=== PATIENT | male | born 1930 | race Caucasian/White ===

== ENCOUNTER 2019-01-06 09:49 | Inpatient (IN) | payer OTHER ==
[2019-01-06 10:17] LABS: Absolute Lymphocytes (CBC) 1.6 K/uL (0.7-4.9); Basophils % 0.3 % (0-1.3); Hematocrit 36.5 % (39.6-49.0); Lymphocytes % 28.3 % (15.3-44.8); MPV 8.5 fL (7.6-11.3); RBC Red Blood Cell Count 3.74 M/uL (4.33-5.43)
[2019-01-06 10:18] LABS: Protime INR 1.46
[2019-01-06 10:58] LABS: ALT/SGPT 25 U/L (12-78); AST/SGOT 20 U/L (15-37); Albumin 3.8 g/dL (3.4-5.0); Alkaline Phosphatase 153 U/L (45-117); BUN Blood Urea Nitrogen 31 mg/dL (7-18); Bicarbonate 30 mmol/L (21-32); Bilirubin Direct 0.2 mg/dL (0-0.2); Bilirubin Total 0.8 mg/dL (0.2-1.0); Glucose Level 92 mg/dL (74-106); Lipase 35 U/L (73-393); Magnesium 2.4 mg/dL (1.8-2.4); NT PRO-BNP 2338 pg/mL (<450); Potassium 4.3 mmol/L (3.5-5.1); Protein, Total 7.7 g/dL (6.4-8.2); Sodium Level 140 mmol/L (136-145); Troponin (Emerg Dept Use Only) < 0.02 ng/mL (0.0-0.045)
--- NOTE | 2019-01-06 11:17 | ER ---
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 Transition of care: patient was not received from another setting of care. Onset of symptoms was January 06, 2019. Risk Assessment: Do you want to hurt yourself or someone else? Patient reports no desire to harm self or others. Initial Sepsis Screen: Does the patient meet any 2 criteria? No. Patient's initial sepsis screen is negative. Does the patient have a suspected source of infection? No. Patient's initial sepsis screen is negative. Care prior to arrival:. 09:53 Method Of Arrival: EMS: [facility] ph 09:53 Acuity: LEX 2 ph Historical: - Allergies: 09:56 Sulfa (Sulfonamide Antibiotics); ph 09:58 Sulfa (Sulfonamide Antibiotics); bp - Home Meds: 09:58 atorvastatin 40 mg Oral tab 1 tab once daily [Active]; Cialis 5 mg Oral tab 1 tab once bp daily [Active]; Coreg 3.125 mg Oral tab 1 tab 2 times per day [Active]; furosemide 40 mg Oral tab 1 tab once daily [Active]; gabapentin 400 mg Oral cap 1 cap 3 times per day [Active]; Iron CR Oral 250 mg daily [Active]; losartan 50 mg Oral tab 1 tab once daily [Active]; Nexium 40 mg Oral cpDR 1 cap once daily [Active]; oxybutynin chloride 5 mg Oral tab 1 tab 2 times per day [Active]; Pradaxa 150 mg Oral cap 1 cap 2 times per day [Active]; - PMHx: 09:56 Atrial Fib; Hypertension; ph 09:58 Atrial Fib; bp - PSHx: 09:56 Knee surgery; ph 09:58 CABG; bp - Immunization history:: Adult Immunizations up to date. - Social history:: Smoking status: Patient/guardian denies using tobacco. - Ebola Screening: : No symptoms or risks identified at this time. - Family history:: not pertinent. Screenin:00 Abuse screen: Denies threats or abuse. Denies injuries from another. Nutritional bp screening: No deficits noted. Tuberculosis screening: No symptoms or risk factors identified. Fall Risk None identified. Assessment: 09:59 General: Appears in no apparent distress. comfortable, Behavior is calm, cooperative. bp Pain: Denies pain. Neuro: Level of Consciousness is awake, alert, obeys commands, Oriented to person, place, time, situation. Cardiovascular: Patient's skin is warm and dry. Cardiovascular: Rhythm is atrial fibrillation. Respiratory: Airway is patent. GI: No signs and/or symptoms were reported involving the gastrointestinal system. : No signs and/or symptoms were reported regarding the genitourinary system. EENT: No signs and/or symptoms were reported regarding the EENT system. Derm: Skin is intact. Musculoskeletal: No signs and/or symptoms reported regarding the musculoskeletal system. 10:52 Reassessment: ALL CURRENT ORDERS COMPLETED, RESULTS PENDING. bp 13:00 Reassessment: ADMIT IN PROCESS, BED ASSIGNMENT PENDING. bp 15:32 Reassessment: Patient appears in no apparent distress at this time. Patient and/or rv family updated on plan of care and expected duration. Pain level reassessed. Patient is alert, oriented x 3, equal unlabored respirations, skin warm/dry/pink. Vital Signs: 09:56 BP 143 / 88; Pulse 78; Resp 18; Temp 97.2; Pulse Ox 99% on R/A; Weight 95.25 kg; ph 10:52 BP 144 / 80; Pulse 54; Resp 14; Pulse Ox 94% ; bp 11:27 BP 138 / 75; Pulse 59; Resp 15; Pulse Ox 98% on R/A; bp 13:00 BP 122 / 52; Pulse 60; Resp 15; Pulse Ox 96% ; bp 14:00 BP 149 / 66; Pulse 50; Resp 17; Pulse Ox 95% ; bp 15:31 BP 137 / 70; Pulse 61; Resp 15; Pulse Ox 100% on R/A; rv 16:52 BP 133 / 57; Pulse 59; Resp 17; Pulse Ox 100% ; rv ED Course: 09:52 Patient arrived in ED. ph 09:55 Betzy, James, RN is Primary Nurse. bp 09:55 Quincy Brown MD is Attending Physician. josefa 09:55 Triage completed. ph 09:56 EKG done, by ED staff, reviewed by Quincy Brown MD. em1 09:56 Arm band placed on Patient placed in an exam room, on a stretcher, on security monitor, ph on pulse oximetry. 10:00 Maintain EMS IV. Dressing intact. Good blood return noted. Site clean \T\ dry. Gauge \T\ bp site: 20 G LEFT AC. 10:00 Patient has correct armband on for positive identification. Placed in gown. Bed in low bp position. Call light in reach. Side rails up X 1. Adult w/ patient. hall monitor on. Pulse ox on. NIBP on. 10:38 XRAY Chest (1 view) In Process Unspecified. EDMS 11:13 Tao Johnson MD is Hospitalizing Provider. josefa 12:04 CT In Process Unspecified. EDMS 16:55 No provider procedures requiring assistance completed. Patient admitted, IV remains in rv place. Administered Medications: 10:20 Drug: NS 0.9% 1000 ml Route: IV; Rate: 125 ml/hr; Site: right forearm; bp 16:52 Follow up: IV Status: Completed infusion; IV Intake: 1000ml rv Intake: 16:52 IV: 1000ml; Total: 1000ml. rv Outcome: 11:15 Decision to Hospitalize by Provider. josefa 16:55 Admitted to Med/surg accompanied by tech, via wheelchair, room 220, Report called to rv yani 16:55 Condition: good 16:55 Discharge instructions given to patient, Instructed on the need for admit, Demonstrated understanding of instructions. 16:56 Patient left the ED. rv Signatures: Dispatcher [employer] EDLA Quincy Brown MD MD cha Martinez, Eric em1 Raiza Chowdhury, MICHELLE MARTINEZ ph James Bo, MICHELLE RN bp Hakeem Avalos RN RN rv
--- NOTE | 2019-01-06 11:17 | EDPHYS ---
Physician Documentation [facility] Name: Jayden Lopez Age: 88 yrs Sex: Male : 1930 Arrival Date: 01/06/2019 Time: 09:52 Bed 3 Private MD: ED Physician Quincy Brown HPI: 01/06 11:16 This 88 yrs old Male presents to ER via EMS with complaints of General josefa Weakness. 11:16 The patient presents with a history of irregular heart beat, heart skipping beats. josefa Context: The symptoms occur with light activity. Onset: The symptoms/episode began/occurred just prior to arrival. Modifying factors: The symptoms are aggravated by nothing. The symptoms are alleviated by nothing. weak, near syncope, low hr 30's. The patient presents with dizziness, generalized weakness. Historical: - Allergies: 09:56 Sulfa (Sulfonamide Antibiotics); ph 09:58 Sulfa (Sulfonamide Antibiotics); bp - Home Meds: 09:58 atorvastatin 40 mg Oral tab 1 tab once daily [Active]; Cialis 5 mg Oral tab 1 tab once bp daily [Active]; Coreg 3.125 mg Oral tab 1 tab 2 times per day [Active]; furosemide 40 mg Oral tab 1 tab once daily [Active]; gabapentin 400 mg Oral cap 1 cap 3 times per day [Active]; Iron CR Oral 250 mg daily [Active]; losartan 50 mg Oral tab 1 tab once daily [Active]; Nexium 40 mg Oral cpDR 1 cap once daily [Active]; oxybutynin chloride 5 mg Oral tab 1 tab 2 times per day [Active]; Pradaxa 150 mg Oral cap 1 cap 2 times per day [Active]; - PMHx: 09:56 Atrial Fib; Hypertension; ph 09:58 Atrial Fib; bp - PSHx: 09:56 Knee surgery; ph 09:58 CABG; bp - Immunization history:: Adult Immunizations up to date. - Social history:: Smoking status: Patient/guardian denies using tobacco. - Ebola Screening: : No symptoms or risks identified at this time. - Family history:: not pertinent. ROS: 11:16 Constitutional: Negative for fever, chills, and weight loss, Eyes: Negative for injury, josefa pain, redness, and discharge, ENT: Negative for injury, pain, and discharge, Neck: Negative for injury, pain, and swelling, Respiratory: Negative for shortness of breath, cough, wheezing, and pleuritic chest pain, Abdomen/GI: Negative for abdominal pain, nausea, vomiting, diarrhea, and constipation, Back: Negative for injury and pain, : Negative for injury, bleeding, discharge, and swelling, MS/Extremity: Negative for injury and deformity, Skin: Negative for injury, rash, and discoloration, Psych: Negative for depression, anxiety, suicide ideation, homicidal ideation, and hallucinations, Allergy/Immunology: Negative for hives, rash, and allergies, Endocrine: Negative for neck swelling, polydipsia, polyuria, polyphagia, and marked weight changes, Hematologic/Lymphatic: Negative for swollen nodes, abnormal bleeding, and unusual bruising. 11:16 Cardiovascular: Positive for palpitations. 11:16 Neuro: Positive for near syncope, weakness. Exam: 11:16 Constitutional: This is a well developed, well nourished patient who is awake, alert, josefa and in no acute distress. Head/Face: Normocephalic, atraumatic. Eyes: Pupils equal round and reactive to light, extra-ocular motions intact. Lids and lashes normal. Conjunctiva and sclera are non-icteric and not injected. Cornea within normal limits. Periorbital areas with no swelling, redness, or edema. ENT: Nares patent. No nasal discharge, no septal abnormalities noted. Tympanic membranes are normal and external auditory canals are clear. Oropharynx with no redness, swelling, or masses, exudates, or evidence of obstruction, uvula midline. Mucous membranes moist. Neck: Trachea midline, no thyromegaly or masses palpated, and no cervical lymphadenopathy. Supple, full range of motion without nuchal rigidity, or vertebral point tenderness. No Meningismus. Chest/axilla: Normal chest wall appearance and motion. Nontender with no deformity. No lesions are appreciated. Respiratory: Lungs have equal breath sounds bilaterally, clear to auscultation and percussion. No rales, rhonchi or wheezes noted. No increased work of breathing, no retractions or nasal flaring. Abdomen/GI: Soft, non-tender, with normal bowel sounds. No distension or tympany. No guarding or rebound. No evidence of tenderness throughout. Back: No spinal tenderness. No costovertebral tenderness. Full range of motion. Male : Normal genitalia with no discharge or lesions. Skin: Warm, dry with normal turgor. Normal color with no rashes, no lesions, and no evidence of cellulitis. MS/ Extremity: Pulses equal, no cyanosis. Neurovascular intact. Full, normal range of motion. Neuro: Awake and alert, GCS 15, oriented to person, place, time, and situation. Cranial nerves II-XII grossly intact. Motor strength 5/5 in all extremities. Sensory grossly intact. Cerebellar exam normal. Normal gait. Psych: Awake, alert, with orientation to person, place and time. Behavior, mood, and affect are within normal limits. 11:16 Cardiovascular: Rate: tachycardic, Rhythm: irregularly irregular, Pulses: Pulses are 4+ in bilateral radial, brachial, femoral, popliteal, posterior tibial and and dorsalis pedis arteries.. Heart sounds: normal, Edema: 2+ edema to level of left midcalf and right midcalf, JVD: is not appreciated. Vital Signs: 09:56 BP 143 / 88; Pulse 78; Resp 18; Temp 97.2; Pulse Ox 99% on R/A; Weight 95.25 kg; ph 10:52 BP 144 / 80; Pulse 54; Resp 14; Pulse Ox 94% ; bp 11:27 BP 138 / 75; Pulse 59; Resp 15; Pulse Ox 98% on R/A; bp 13:00 BP 122 / 52; Pulse 60; Resp 15; Pulse Ox 96% ; bp 14:00 BP 149 / 66; Pulse 50; Resp 17; Pulse Ox 95% ; bp 15:31 BP 137 / 70; Pulse 61; Resp 15; Pulse Ox 100% on R/A; rv 16:52 BP 133 / 57; Pulse 59; Resp 17; Pulse Ox 100% ; rv MDM: 09:55 Patient medically screened. [facility] 01/06 09:57 Order name: Basic Metabolic Panel; Complete Time: 11:11 [facility] 01/06 09:57 Order name: CBC with Diff; Complete Time: 10:59 01/06 09:57 Order name: LFT's; Complete Time: 11:11 [facility] 01/06 09:57 Order name: Magnesium; Complete Time: 11:11 [facility] 01/06 09:57 Order name: NT PRO-BNP; Complete Time: 11:11 [facility] 01/06 09:57 Order name: PT-INR; Complete Time: 10:59 [facility] 01/06 09:57 Order name: Troponin (emerg Dept Use Only); Complete Time: 11:11 [facility] 01/06 09:57 Order name: XRAY Chest (1 view); Complete Time: 13:08 [facility] 01/06 09:57 Order name: EKG; Complete Time: 10:00 [facility] 01/06 09:57 Order name: TSH; Complete Time: 11:11 [facility] 01/06 09:57 Order name: Lipase; Complete Time: 11:11 [facility] 01/06 11:29 Order name: CT Head Brain wo Cont [facility] 01/06 12:04 Order name: CT EDMS 01/06 09:57 Order name: Cardiac monitoring; Complete Time: 10:12 [facility] 01/06 09:57 Order name: EKG - Nurse/Tech; Complete Time: 10:12 [facility] 01/06 09:57 Order name: IV Saline Lock; Complete Time: 10:12 [facility] 01/06 09:57 Order name: Labs collected and sent; Complete Time: 10:56 [facility] 01/06 09:57 Order name: O2 Per Protocol; Complete Time: 10:12 [facility] 01/06 09:57 Order name: O2 Sat Monitoring; Complete Time: 10:12 [facility] Administered Medications: 10:20 Drug: NS 0.9% 1000 ml Route: IV; Rate: 125 ml/hr; Site: right forearm; bp 16:52 Follow up: IV Status: Completed infusion; IV Intake: 1000ml rv Disposition: 01/06/19 11:15 Hospitalization ordered by Tao Johnson for Inpatient Admission. Preliminary diagnosis are Bradycardia, unspecified, Atrial fibrillation and flutter, Syncope and collapse - near. - Bed requested for Telemetry/MedSurg (Inpatient). - Status is Inpatient Admission. rv - Condition is Fair. - Problem is new. - Symptoms have improved. UTI on Admission? No Signatures: Dispatcher [employer] EDMS Quincy Brown MD MD cha Martinez, Eric em1 Raiza Chowdhury, James Collins RN, ph, RN RN Hakeem Meyer RN RN rv Corrections: (The following items were deleted from the chart) 14:49 11:15 Hospitalization Ordered by Tao Johnson MD for Inpatient Admission. Preliminary em1 diagnosis is Bradycardia, unspecified; Atrial fibrillation and flutter; Syncope and collapse - near. Bed requested for Telemetry/MedSurg (Inpatient). Status is Inpatient Admission. Condition is Fair. Problem is new. Symptoms have improved. UTI on Admission? No. josefa 16:56 14:49 01/06/2019 11:15 Hospitalization Ordered by Tao Johnson MD for Inpatient rv Admission. Preliminary diagnosis is Bradycardia, unspecified; Atrial fibrillation and flutter; Syncope and collapse - near. Bed requested for Telemetry/MedSurg (Inpatient). Status is Inpatient Admission. Condition is Fair. Problem is new. Symptoms have improved. UTI on Admission? No. em1
--- NOTE | 2019-01-06 11:21 | RAD REPORT ---
EXAM DESCRIPTION: RAD - Chest Single View - 01/06/2019 10:29 am CLINICAL HISTORY: Cough, shortness of breath, hypertension COMPARISON: May 2013 TECHNIQUE: AP portable chest image was obtained 1024 hours . FINDINGS: No peripheral mass or consolidation seen. Interstitial markings are prominent but not subs tantially different over the long interval since prior imaging. Sternotomy wires are in place. Cardia c silhouette is enlarged similar to comparison. No acute vascular engorgement seen. No measurable ple ural effusion and no pneumothorax. No acute bony abnormality seen. No acute aortic findings suspected . IMPRESSION: Cardiomegaly without other findings of acute failure or volume overload. Prominent interstitial lung pattern not substantially different from comparison. Baseline pattern cou ld mask early stages of interstitial edema or infiltrate.
--- NOTE | 2019-01-06 12:03 | RAD REPORT ---
EXAM DESCRIPTION: CT - Head Brain Wo Cont - 01/06/2019 11:52 am CLINICAL HISTORY: Dizziness, fatigue, syncope, bradycardia and hypotension COMPARISON: None. TECHNIQUE: Axial 5 mm thick images of the head were obtained without IV contrast. All CT scans are performed using dose optimization technique as appropriate and may include automated exposure control or mA/KV adjustment according to patient size. FINDINGS: No intracranial hemorrhage, mass, edema or shift of mid-line structures. No acute infarcti on changes seen. No abnormal extra-axial fluid collections. Mild atrophy and chronic ischemic changes are present. 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 Ventricles are in proportion to volume loss. Intracranial findings are similar to comparison. Mastoid air cells and visualized portions of the paranasal sinuses are clear. No acute bony findings. IMPRESSION: Negative non-contrast CT head examination for acute finding. No significant change from 2017.
--- NOTE | 2019-01-06 14:26 | P.HP ---
Patient History Date of Service: 01/06/19 Reason for admission: Dizziness, generalized weakness History of Present Illness: This is an 88-year-old male with past medical history of atrial fibrillation, hypertension, CAD with history of CABG admitted for generalized weakness and some dizziness. Per patient, this morning, he got off his couch to get on some from the cup of coffee and felt very dizzy and disoriented. He sat back down, but he would pass. The feeling of dizziness and disorientation persisted, therefore he called his friend. Friend was going to check on patient, by the time she got there he could not even walk and was complaining of increased dizziness. Therefore EMS was called. When checked by the EMS, patient's heart rate was down in the 40s and he asymptomatic. Therefore he was brought to the emergency room. In the ER, his blood pressure was 143/88, heart rate of 78, respirations of 18. His labs were remarkable for increased alk-phos of 153 and at pro BNP of 2,338. Patient's heart rate from the 70s did go down to the 50s. He was given 0.5 mg atropine, IV fluid bolus in the ER. At the time of my exam, he was alert oriented x3, in no acute distress. He states that he was feeling a little bit better than his dizziness had improved. But he stated that he has not walked yet so he is not sure if this dizziness is completely resolved yet. He will be admitted for symptomatic bradycardia for further evaluation and management. Allergies Sulfa (Sulfonamide Antibiotics) Allergy (Intermediate, Verified 12/04/12 13:11) Shortness of breath Home medications list reviewed: Yes Home Medications: Amiodarone HCl 200 mg PO DAILY 05/29/13 Atorvastatin Calcium [Lipitor] 40 mg PO DAILY 05/29/13 Centrum Silver* 1 tab PO DAILY 05/29/13 Dabigatran Etexilate Mesylate [Pradaxa*] 150 mg PO BID 05/29/13 Esomeprazole Mag Trihydrate [Nexium] 40 mg PO BID 05/29/13 Furosemide [Lasix*] 40 mg PO DAILY 05/29/13 Gabapentin [Neurontin*] 400 mg PO TID 05/29/13 Iron 18 mg PO 05/29/13 Oxybutynin Chloride 5 mg PO DAILY 05/29/13 Ciprofloxacin HCl [Cipro*] 500 mg PO Q12H #10 tab 06/02/13 Hydrocodone/Acetaminophen [Vicodin 5-300 mg Tablet] 1 each PO Q4H PRN #30 tablet 06/02/13 Promethazine Tab [Phenergan -Tab] 25 mg PO Q6HP PRN #10 tab 06/02/13 - Past Medical/Surgical History Diabetic: No -: Atrial fibrillation -: heart surgery 2001 (unspecified by patient) -: right knee replacement 2007, left Knee replacement 10/2012 -: Hypertension -: left knee replacement 10/26 Psychosocial/ Personal History: Patient lives alone. He is currently independent with his iADL, ADLs. Daughter is in [place] - Social History Smoking Status: Never smoker Alcohol use: No Place of Residence: Home Review of Systems 10-point ROS is otherwise unremarkable Physical Examination - Physical Exam General: Alert, In no apparent distress, Oriented x3 HEENT: Atraumatic, PERRLA, Mucous membr. moist/pink, EOMI, Sclerae nonicteric Neck: Supple, 2+ carotid pulse no bruit, No LAD, Without JVD or thyroid abnormality Respiratory: Clear to auscultation bilaterally, Normal air movement Cardiovascular: Normal S1 S2, Irregular heart rate/rhythm (Bradycardic) Gastrointestinal: Normal bowel sounds, No tenderness Musculoskeletal: No tenderness Integumentary: No rashes Neurological: Normal gait, Normal speech, Normal strength at 5/5 x4 extr, Normal tone, Normal affect Lymphatics: No axilla or inguinal lymphadenopathy - Studies Laboratory Data (last 24 hrs) 01/06/19 10:04: PT 17.0 H, INR 1.46 01/06/19 10:04: WBC 5.8, Hgb 12.2 L, Hct 36.5 L, Plt Count 155 01/06/19 10:04: Sodium 140, Potassium 4.3, BUN 31 H, Creatinine 1.28, Glucose 92 , Magnesium 2.4, Total Bilirubin 0.8, AST 20, ALT 25, Alkaline Phosphatase 153 H , Lipase 35 L Assessment and Plan - Problems (Diagnosis) (1) Symptomatic bradycardia Current Visit: Yes Status: Acute Plan: Likely secondary to Coreg use -symptoms include: Dizziness, unable to walk, generalized weakness. Improved -will hold Coreg at this time. -cardiology consults, awaiting recommendations -monitor on tele (2) Atrial fibrillation Current Visit: Yes Status: Acute Plan: Patient does have a history of chronic atrial fibrillation. -It seems to be rate controlled with Coreg at home. Hold Coreg at this time due to symptomatic bradycardia. -He is on Pradaxa 150 mg b.i.d. for blood thinner. Will continue that here. Qualifiers: Atrial fibrillation type: chronic Qualified Code(s): I48.2 - Chronic atrial fibrillation (3) Hypertension Current Visit: No Status: Chronic Plan: We will restart home medications of losartan 50 mg and Lasix 40. Continue to monitor blood pressure and adjust medications as needed. Qualifiers: Hypertension type: essential hypertension Qualified Code(s): I10 - Essential (primary) hypertension (4) Coronary artery disease Current Visit: No Status: Chronic Plan: Stable, restart home medications as tolerated. Qualifiers: Coronary Disease-Associated Artery/Lesion type: bypass graft [place] vs. transplanted heart: [place] heart Associated angina: without angina Qualified Code(s): I25.810 - Atherosclerosis of coronary artery bypass graft(s) without angina pectoris (5) History of coronary artery bypass graft Current Visit: No Status: Chronic - Plan DVT prophylaxis: Pradaxa GI prophylaxis: Protonix Diet: Heart healthy Disposition: Admit to floor, monitor via tele. Awaiting cardiology recommendations. Discharge Plan: Home Plan to discharge in: 48 Hours - Advance Directives Does patient have a Living Will: No Does patient have a Durable POA for Healthcare: Yes Time Spent Managing Pts Care (In Minutes): 65
[2019-01-06] MEDS ORDERED: ONDANSETRON 4 MG/2 ML VIAL IV PRN (17:11)
[2019-01-06] MEDS: NA CHLORIDE 0.9% 1,000 ML IV SCH (17:44)
[2019-01-06 18:35] VITALS: BMI 27.1
[2019-01-06] MEDS: DABIGATRAN 150 MG CAP PO SCH (20:02)
[2019-01-06] MEDS ORDERED: ATORVASTATIN 40 MG TAB PO SCH (21:00)
[2019-01-07 03:21] LABS: Urine Appearance CLEAR; Urine Bilirubin NEGATIVE (NEG); Urine Blood TRACE (NEG); Urine Color YELLOW; Urine Glucose NEGATIVE (NEG); Urine Microscopic Reflex ORDER UMIC; Urine Protein NEGATIVE (NEG); Urine Specific Gravity 1.015 (1.005-1.030)
[2019-01-07 04:04] LABS: Urine Bacteria <20 /HPF (NONE SEEN); Urine Culture Reflex Order NOT NEEDED
[2019-01-07] MEDS: NA CHLORIDE 0.9% 1,000 ML IV SCH (04:10)
[2019-01-07] MEDS ORDERED: PANTOPRAZOLE 40MG TABLET PO SCH (06:30)
[2019-01-07 06:32] LABS: Absolute Lymphocytes (CBC) 1.5 K/uL (0.7-4.9); Basophils % 0.4 % (0-1.3); Hematocrit 35.4 % (39.6-49.0); Lymphocytes % 28.8 % (15.3-44.8); MPV 8.3 fL (7.6-11.3); RBC Red Blood Cell Count 3.66 M/uL (4.33-5.43)
[2019-01-07 06:53] LABS: Albumin 3.3 g/dL (3.4-5.0); Bilirubin Total 0.5 mg/dL (0.2-1.0); Phosphorus 2.5 mg/dL (2.5-4.9); Potassium 4.3 mmol/L (3.5-5.1); Protein, Total 6.6 g/dL (6.4-8.2)
[2019-01-07 08:13] VITALS: BP 168/78; TEMP 98.5
[2019-01-07] MEDS: DABIGATRAN 150 MG CAP PO SCH (08:26)
[2019-01-07] MEDS ORDERED: LOSARTAN POTASSIUM 50 MG TABLET PO SCH (09:00)
[2019-01-07] MEDS ORDERED: FUROSEMIDE 40 MG TABLET PO SCH (09:00)
[2019-01-07 09:16] VITALS: O2SAT 95
--- NOTE | 2019-01-07 10:44 | EKG ---
Test Date: 2019-01-06 Test Time: 09:54:53 Communications Controller: COLEMAN MEASUREMENT RESULTS: Intervals: Rate: 75 DC: QRSD: 84 QT: 410 QTc: 457 Weare: P: DC: QRS: 12 T: 87 INTERPRETIVE STATEMENTS: Atrial fibrillation with controlled ventricular response Septal infarct, age undetermined Abnormal ECG Compared to ECG 12/01/2016 08:16:34 no significant change from previous ECG Electronically Signed On 01-07-19 10:44:08 CDT by Gurmeet Kowalski
--- NOTE | 2019-01-07 11:26 | P.DS ---
Admission Date: 01/06/19 Discharge Date: 01/07/19 Disposition: ROUTINE DISCHARGE Discharge Condition: GOOD Reason for Admission: Dizziness, generalized weakness Consultations: Cardiology - Problems (1) Symptomatic bradycardia Current Visit: Yes Status: Acute (2) Atrial fibrillation Current Visit: Yes Status: Acute Qualifiers: Atrial fibrillation type: chronic Qualified Code(s): I48.2 - Chronic atrial fibrillation (3) Hypertension Current Visit: No Status: Chronic Qualifiers: Hypertension type: essential hypertension Qualified Code(s): I10 - Essential (primary) hypertension (4) Coronary artery disease Current Visit: No Status: Chronic Qualifiers: Coronary Disease-Associated Artery/Lesion type: bypass graft [place] vs. transplanted heart: [place] heart Associated angina: without angina Qualified Code(s): I25.810 - Atherosclerosis of coronary artery bypass graft(s) without angina pectoris (5) History of coronary artery bypass graft Current Visit: No Status: Chronic Brief History of Present Illness: This is an 88-year-old male with past medical history of atrial fibrillation, hypertension, CAD with history of CABG admitted for generalized weakness and some dizziness. Per patient, this morning, he got off his couch to get on some from the cup of coffee and felt very dizzy and disoriented. He sat back down, but he would pass. The feeling of dizziness and disorientation persisted, therefore he called his friend. Friend was going to check on patient, by the time she got there he could not even walk and was complaining of increased dizziness. Therefore EMS was called. When checked by the EMS, patient's heart rate was down in the 40s and he asymptomatic. Therefore he was brought to the emergency room. In the ER, his blood pressure was 143/88, heart rate of 78, respirations of 18. His labs were remarkable for increased alk-phos of 153 and at pro BNP of 2,338. Patient's heart rate from the 70s did go down to the 50s. He was given 0.5 mg atropine, IV fluid bolus in the ER. At the time of my exam, he was alert oriented x3, in no acute distress. He states that he was feeling a little bit better than his dizziness had improved. But he stated that he has not walked yet so he is not sure if this dizziness is completely resolved yet. He will be admitted for symptomatic bradycardia for further evaluation and management. Hospital Course: Patient was admitted. His coreg was held. His heart rate did improve. He was then cleared for discharge by cardiology. His coreg was held on discharge. He also worked with physical therapy prior to discharge and he did well. Prior to discharge, he was AAOx3, in no acute distress and symptom free. He was ambulating and tolerating a PO diet. His labs were stable and he was hemodynamically stable. He otherwise remained stable throughout the stay. His diagnosis and treatment plan was explained to him and he verbalized understanding. All questions were answered. He was then discharged home in a safe and stable manner. Vital Signs/Physical Exam: Temp Pulse Resp BP Pulse Ox 98.5 F 53 14 168/78 H 96 01/07/19 08:00 01/07/19 08:27 01/07/19 08:00 01/07/19 08:01/07/19 08:00 General: Alert, In no apparent distress, Oriented x3 HEENT: Atraumatic, PERRLA, EOMI Neck: Supple, JVD not distended Respiratory: Clear to auscultation bilaterally, Normal air movement Cardiovascular: Regular rate/rhythm, Normal S1 S2 Gastrointestinal: Normal bowel sounds, No tenderness Musculoskeletal: No tenderness Integumentary: No rashes Neurological: Normal speech, Normal tone, Normal affect Lymphatics: No axilla or inguinal lymphadenopathy Laboratory Data at Discharge: WBC 5.2 K/uL (4.3-10.9) 01/07/19 06:10 Hgb 11.9 g/dL (13.6-17.9) L 01/07/19 06:10 Hct 35.4 % (39.6-49.0) L 01/07/19 06:10 Plt Count 157 K/uL (152-406) 01/07/19 06:10 PT 17.0 SECONDS (9.5-12.5) H 01/06/19 10:04 INR 1.46 01/06/19 10:04 Sodium 145 mmol/L (136-145) 01/07/19 06:10 Potassium 4.3 mmol/L (3.5-5.1) 01/07/19 06:10 BUN 23 mg/dL (7-18) H 01/07/19 06:10 Creatinine 1.00 mg/dL (0.55-1.3) 01/07/19 06:10 Glucose 96 mg/dL (74-106) 01/07/19 06:10 Phosphorus 2.5 mg/dL (2.5-4.9) 01/07/19 06:10 Magnesium 2.4 mg/dL (1.8-2.4) 01/06/19 10:04 Total Bilirubin 0.5 mg/dL (0.2-1.0) 01/07/19 06:10 AST 16 U/L (15-37) 01/07/19 06:10 ALT 20 U/L (12-78) 01/07/19 06:10 Alkaline Phosphatase 142 U/L (45-117) H 01/07/19 06:10 Lipase 35 U/L (73-393) L 01/06/19 10:04 Home Medications: Atorvastatin Calcium [Lipitor] 40 mg PO DAILY 01/06/19 Dabigatran Etexilate Mesylate [Pradaxa*] 150 mg PO BID 01/06/19 Esomeprazole Mag Trihydrate [Nexium] 40 mg PO DAILY 01/06/19 Furosemide [Lasix*] 40 mg PO DAILY 01/06/19 Gabapentin [Neurontin*] 400 mg PO TID 01/06/19 Iron,Carbonyl/Vit C/Vit B12/FA [Iron 100 Plus Tablet] 250 mg PO DAILY 01/06/19 Losartan Potassium [Cozaar*] 50 mg PO DAILY 01/06/19 Oxybutynin Chloride [Ditropan*] 5 mg PO BID 01/06/19 Tadalafil [Cialis] 5 mg PO DAILY 01/06/19 Albuterol Sulfate [Proair Hfa] 2 puff IH SEECOM 01/07/19 Fluticasone Propionate [Flovent Diskus] 1 - 2 spray IH DAILY 01/07/19 Fluticasone/Salmeterol [Advair Hfa 230-21 Mcg Inhaler] 2 puff IH BID 01/07/19 Hydrocodone/Acetaminophen [Hydrocodone-Acetamin 10-325 mg] 1 tab PO Q4H PRN Multivit-Min/FA/Lycopen/Lutein [Centrum Silver Tablet] 1 tab PO DAILY 01/07/19 Patient Discharge Instructions: Please follow up with your primary care physician in 2-3 days. Please follow up with your Patrol Guard in 1 week. Please stop carvedilol until you see your ice rink attendant. Return to the Emergency room for worsening symptoms. Diet: AHA Activity: Ad naif Followup: Gurmeet Kowalski MD [ACTIVE - CAN ADMIT] - Time spent managing pt's care (in minutes): 55
[2019-01-07] MEDS ORDERED: MULTIVIT W/ MINERAL TAB PO SCH (12:00)
--- NOTE | 2019-01-07 15:58 | CON ---
Chief Complaint: Dizziness. History Of Present Illness: Mr. Lopez is a gentleman who has chronic Afib. He is on a tiny dose of C oreg, which I think should probably be stopped now. His heart rates have been consistently in the 40 s and 50s. Sometimes, it looks like it is junctional rhythm instead of actually Afib. He takes Prad axa as his anticoagulant and does not seem to be having any problems. He had bypass surgery in 2003, so some 15 years ago. Medications: Otherwise, he takes a Ditropan, losartan, esomeprazole, iron, gabapentin, furosemide, C ialis, Coreg, atorvastatin, Pradaxa, Advair, albuterol, multivitamin, Flovent Diskus, hydrocodone. Social History: He uses no tobacco. He quit in 2003. Physical Examination: General: He is 5 feet 11 inches, 194 pounds. Appears to be his stated age. Alert, oriented, pleasa nt, not in distress. Lungs: Clear. Cardiac: Irregular. No significant murmur or gallop. I could not initiate any findings of vertigo or reproduce it with a Hallpike maneuver on either side. Most recent blood pressure was 168/78. Impression: My impression is that we could cut down the dose of Coreg or just stop it. Continue wit h his other medicines and then pursue an outpatient workup. I do not think this is cerebrovascular d isease. It could potentially be vertigo, but if he still is dizzy without any medicines to slow his heart rate down, he would be a candidate to get a pacemaker. LEISA/ROSLYN Voice ID: [id number] Report ID: [id number]
[2019-01-07] MEDS ORDERED: SALMETEROL IH SCH (21:00)
[2019-01-07] MEDS ORDERED: FLUTICASONE IH SCH (21:00)
[2019-01-08] MEDS ORDERED: FLUTICASONE PROPIONATE IH SCH (09:00)
== END 2019-01-07 12:39 | disposition home or self-care (01) | DRG 310 ==
LOC: ER 09:49 → ERHOLD 12:15 → 2ND 16:41
PROVIDERS: ADMIT Family Medicine; ATTEND Family Medicine
DX: R00.1 Bradycardia, unspecified (principal); I48.2 Chronic atrial fibrillation; I10 Essential (primary) hypertension; I25.10 Atherosclerotic heart disease of native coronary artery without angina pectoris; Z95.1 Presence of aortocoronary bypass graft; Z88.2 Allergy status to sulfonamides
CPT/HCPCS: 36415; 70450; 71045; 80048; 80053; 80076; 81003; 81015; 83690; 83735; 83880; 84100; 84443; 84484; 85025; 85610; 93005; 94760; 96360; 96361; 97116; 97162; 97530; 99285; J7030

== ENCOUNTER 2019-04-30 20:53 | Emergency (ER) | payer OTHER ==
[2019-04-30] MEDS ORDERED: ONDANSETRON 4 MG/2 ML VIAL ONE (21:30)
[2019-04-30 21:41] LABS: Absolute Lymphocytes (CBC) 2.5 K/uL (0.7-4.9); Basophils % 0.3 % (0-1.3); Hematocrit 41.7 % (39.6-49.0); Lymphocytes % 39.2 % (15.3-44.8); MPV 8.1 fL (7.6-11.3); RBC Red Blood Cell Count 4.25 M/uL (4.33-5.43)
[2019-04-30 21:43] LABS: Protime INR 1.16
[2019-04-30 22:02] LABS: ALT/SGPT 30 U/L (12-78); AST/SGOT 21 U/L (15-37); Albumin 4.2 g/dL (3.4-5.0); Alkaline Phosphatase 151 U/L (45-117); BUN Blood Urea Nitrogen 20 mg/dL (7-18); Bicarbonate 30 mmol/L (21-32); Bilirubin Direct 0.2 mg/dL (0-0.2); Bilirubin Total 0.5 mg/dL (0.2-1.0); Glucose Level 100 mg/dL (74-106); Magnesium 2.2 mg/dL (1.8-2.4); NT PRO-BNP 2921 pg/mL (<450); Potassium 4.4 mmol/L (3.5-5.1); Protein, Total 7.7 g/dL (6.4-8.2); Sodium Level 139 mmol/L (136-145); Troponin (Emerg Dept Use Only) < 0.02 ng/mL (0.0-0.045)
--- NOTE | 2019-04-30 23:48 | ER ---
Nurse's Notes [facility] Name: Jayden Lopez Age: 88 yrs Sex: Male : 1930 Arrival Date: 04/30/2019 Time: 20:57 Bed 13 Private MD: Diagnosis: Unspecified abdominal pain Presentation: 04/30 21:15 Presenting complaint: Patient states: i started to have abdominal pain, clammy skin, mg2 dizziness and nausea since 3 pm. but my main concern is my blood pressure been going up and down. Transition of care: patient was not received from another setting of care. Onset of symptoms was April 30, 2019 at 15:00. Risk Assessment: Do you want to hurt yourself or someone else? Patient reports no desire to harm self or others. Initial Sepsis Screen: Does the patient meet any 2 criteria? No. Patient's initial sepsis screen is negative. Does the patient have a suspected source of infection? No. Patient's initial sepsis screen is negative. Care prior to arrival: None. 21:15 Method Of Arrival: Ambulatory mg2 21:15 Acuity: LEX 2 mg2 Historical: - Allergies: 21:18 Sulfa (Sulfonamide Antibiotics); mg2 - Home Meds: 21:35 atorvastatin 40 mg Oral tab 1 tab once daily [Active]; Cialis 5 mg Oral tab 1 tab once mg2 daily [Active]; furosemide 40 mg Oral tab 1 tab once daily [Active]; gabapentin 400 mg Oral cap 1 cap 3 times per day [Active]; Iron CR Oral 250 mg daily [Active]; Nexium 40 mg Oral cpDR 1 cap once daily [Active]; losartan 50 mg Oral tab 1 tab once daily [Active]; oxybutynin chloride 5 mg Oral tab 1 tab 2 times per day [Active]; Pradaxa 150 mg Oral cap 1 cap 2 times per day [Active]; - PMHx: 21:18 Atrial Fib; Hypertension; CHF; mg2 - PSHx: 21:18 shoulder, both knee sx; heart bypass; mg2 - Immunization history:: Flu vaccine is up to date. - Social history:: Smoking status: Patient/guardian denies using tobacco, Patient/guardian denies using alcohol, street drugs, IV drugs. - Ebola Screening: : No symptoms or risks identified at this time. Screenin:18 Abuse screen: Denies threats or abuse. Denies injuries from another. Nutritional mg2 screening: No deficits noted. Tuberculosis screening: No symptoms or risk factors identified. 21:25 Fall Risk IV access (20 points). Total [place] Fall Scale indicates No Risk (0-24 pts). jb4 Assessment: 21:25 General: Appears in no apparent distress. comfortable, Behavior is calm, cooperative, jb4 appropriate for age. Pain: Complains of pain in abdomen Pain does not radiate. Pain currently is 3 out of 10 on a pain scale. Neuro: Level of Consciousness is awake, alert, obeys commands, Oriented to person, place, time, situation. Cardiovascular: Patient's skin is warm and dry. Respiratory: Airway is patent Respiratory effort is even, unlabored, Respiratory pattern is regular, symmetrical. GI: Abdomen is round non-distended, Abd is soft and non tender X 4 quads. : No signs and/or symptoms were reported regarding the genitourinary system. EENT: No signs and/or symptoms were reported regarding the EENT system. Derm: Skin is intact, Skin is pink, warm \T\ dry. Musculoskeletal: Circulation, motion, and sensation intact. Range of motion: intact in all extremities. 22:30 Reassessment: Patient appears in no apparent distress at this time. Patient and/or jb4 family updated on plan of care and expected duration. Pain level reassessed. Patient is alert, oriented x 3, equal unlabored respirations, skin warm/dry/pink. Patient states feeling better. 23:20 Reassessment: Patient appears in no apparent distress at this time. Patient and/or jb4 family updated on plan of care and expected duration. Pain level reassessed. Patient is alert, oriented x 3, equal unlabored respirations, skin warm/dry/pink. 05/01 00:09 Reassessment: Patient appears in no apparent distress at this time. Patient and/or jb4 family updated on plan of care and expected duration. Pain level reassessed. Patient is alert, oriented x 3, equal unlabored respirations, skin warm/dry/pink. PT and family verbalized understanding of d/c and follow up instructions. Vital Signs: 04/30 21:16 BP 171 / 103; Pulse 77; Resp 18; Temp 97.8; Pulse Ox 94% on R/A; Weight 93.44 kg; mg2 Height 5 ft. 11 in. (180.34 cm); 22:00 BP 136 / 75; Pulse 62; Resp 16; Pulse Ox 92% on R/A; jb4 23:00 BP 140 / 82; Pulse 75; Resp 16; Pulse Ox 94% on R/A; jb4 23:45 BP 143 / 81; Pulse 55; Resp 18; Pulse Ox 95% on R/A; jb4 21:16 Body Mass Index 28.73 (93.44 kg, 180.34 cm) mg2 ED Course: 20:57 Patient arrived in ED. cf2 21:11 Collins Ibrahim NP is PHCP. pm1 21:11 Brian Wilks MD is Attending Physician. pm1 21:15 Fortunato Santos, RN is Primary Nurse. jb4 21:16 Triage completed. mg2 21:18 Arm band placed on. mg2 21:25 Patient has correct armband on for positive identification. Bed in low position. Call jb4 light in reach. Side rails up X 1. survey researcher on. Pulse ox on. NIBP on. 21:25 Initial lab(s) drawn, by md, sent to lab. Inserted saline lock: 20 gauge in right jb4 forearm, using aseptic technique. Blood collected. 21:45 EKG done, by ED staff, reviewed by Brian Wilks MD. ds4 21:56 Basic Metabolic Panel Sent. ds4 21:56 Troponin (emerg Dept Use Only) Sent. ds4 21:56 CBC with Diff Sent. ds4 21:56 PT-INR Sent. ds4 21:56 LFT's Sent. ds4 21:56 Magnesium Sent. ds4 21:56 NT PRO-BNP Sent. ds4 22:[address] vm2 23:45 No provider procedures requiring assistance completed. IV discontinued, intact, jb4 bleeding controlled, No redness/swelling at site. Pressure dressing applied. Administered Medications: 21:34 Drug: Zofran 4 mg Route: IVP; Site: right forearm; jb4 22:00 Follow up: Response: No adverse reaction; Nausea is decreased jb4 Outcome: 23:48 Discharge ordered by MD. pm1 05/01 00:00 Discharged to home ambulatory, with family. jb4 Condition: stable Discharge instructions given to patient, family, Instructed on discharge instructions, follow up and referral plans. medication usage, Demonstrated understanding of instructions, follow-up care, medications, Prescriptions given X 1. 00:13 Patient left the ED. jb4 Signatures: Brody Castillo ds4 Collins Ibrahim NP POLYSOMNOGRAPHY TECHNICIAN pm1 Fortunato Santos RN RN jb4 Bre Rivera 2 Kurt Daniel RN RN mg2 Kalen Rivera cf2 Corrections: (The following items were deleted from the chart) 04/30 21:37 21:15 Acuity: LEX 3 mg2 mg2
--- NOTE | 2019-04-30 23:49 | EDPHYS ---
Physician Documentation [facility] Name: Jayden Lopez Age: 88 yrs Sex: Male : 1930 Arrival Date: 04/30/2019 Time: 20:57 Bed 13 Private MD: ED Physician Brian Wilks HPI: 04/30 22:00 This 88 yrs old Male presents to ER via Ambulatory with complaints of pm1 Abdominal pain, Dizziness, Nausea, High Blood Pressure. 22:00 The patient presents with abdominal pain that is diffuse. Onset: The symptoms/episode pm1 began/occurred today, at 15:00. The symptoms do not radiate. Associated signs and symptoms: Pertinent positives: nausea, dizziness, elevated blood pressure, Pertinent negatives: chest pain, diarrhea, dysuria, fever, shortness of breath, vomiting. The symptoms are described as crampy. Modifying factors: The symptoms are alleviated by nothing, the symptoms are aggravated by nothing. Severity of pain: in the emergency department the pain almost completely resolved and nausea is no longer present. The patient has not experienced similar symptoms in the past. Historical: - Allergies: 21:18 Sulfa (Sulfonamide Antibiotics); mg2 - Home Meds: 21:35 atorvastatin 40 mg Oral tab 1 tab once daily [Active]; Cialis 5 mg Oral tab 1 tab once mg2 daily [Active]; furosemide 40 mg Oral tab 1 tab once daily [Active]; gabapentin 400 mg Oral cap 1 cap 3 times per day [Active]; Iron CR Oral 250 mg daily [Active]; Nexium 40 mg Oral cpDR 1 cap once daily [Active]; losartan 50 mg Oral tab 1 tab once daily [Active]; oxybutynin chloride 5 mg Oral tab 1 tab 2 times per day [Active]; Pradaxa 150 mg Oral cap 1 cap 2 times per day [Active]; - PMHx: 21:18 Atrial Fib; Hypertension; CHF; mg2 - PSHx: 21:18 shoulder, both knee sx; heart bypass; mg2 - Immunization history:: Flu vaccine is up to date. - Social history:: Smoking status: Patient/guardian denies using tobacco, Patient/guardian denies using alcohol, street drugs, IV drugs. - Ebola Screening: : No symptoms or risks identified at this time. ROS: 22:00 Constitutional: Negative for fever, chills, and weight loss, Eyes: Negative for injury, pm1 pain, redness, and discharge, ENT: Negative for injury, pain, and discharge, Neck: Negative for injury, pain, and swelling, Cardiovascular: Negative for chest pain, palpitations, and edema, Respiratory: Negative for shortness of breath, cough, wheezing, and pleuritic chest pain. 22:00 Back: Negative for injury and pain. 22:00 : Negative for injury, bleeding, discharge, and swelling, MS/Extremity: Negative for injury and deformity, Skin: Negative for injury, rash, and discoloration, Neuro: Negative for headache, weakness, numbness, tingling, and seizure. 22:00 Abdomen/GI: Positive for abdominal pain, nausea, small bowel movement this AM, Negative for vomiting, diarrhea. Exam: 22:00 Constitutional: This is a well developed, well nourished patient who is awake, alert, pm1 and in no acute distress. Head/Face: Normocephalic, atraumatic. Eyes: Pupils equal round and reactive to light, extra-ocular motions intact. Lids and lashes normal. Conjunctiva and sclera are non-icteric and not injected. Cornea within normal limits. Periorbital areas with no swelling, redness, or edema. ENT: Nares patent. No nasal discharge, no septal abnormalities noted. Tympanic membranes are normal and external auditory canals are clear. Oropharynx with no redness, swelling, or masses, exudates, or evidence of obstruction, uvula midline. Mucous membranes moist. Neck: Trachea midline, no thyromegaly or masses palpated, and no cervical lymphadenopathy. Supple, full range of motion without nuchal rigidity, or vertebral point tenderness. No Meningismus. Chest/axilla: Normal chest wall appearance and motion. Nontender with no deformity. No lesions are appreciated. Cardiovascular: Regular rate and rhythm with a normal S1 and S2. No gallops, murmurs, or rubs. No pulse deficits. Respiratory: Lungs have equal breath sounds bilaterally, clear to auscultation and percussion. No rales, rhonchi or wheezes noted. No increased work of breathing, no retractions or nasal flaring. Abdomen/GI: Soft, non-tender, with normal bowel sounds. No distension or tympany. No guarding or rebound. No evidence of tenderness throughout. Back: No spinal tenderness. No costovertebral tenderness. Full range of motion. Skin: Warm, dry with normal turgor. Normal color with no rashes, no lesions, and no evidence of cellulitis. MS/ Extremity: Pulses equal, no cyanosis. Neurovascular intact. Full, normal range of motion. 22:00 Neuro: Orientation: is normal, Motor: moves all fours, Gait: is steady, at a normal pace, without difficulty. Vital Signs: 21:16 BP 171 / 103; Pulse 77; Resp 18; Temp 97.8; Pulse Ox 94% on R/A; Weight 93.44 kg; mg2 Height 5 ft. 11 in. (180.34 cm); 22:00 BP 136 / 75; Pulse 62; Resp 16; Pulse Ox 92% on R/A; jb4 23:00 BP 140 / 82; Pulse 75; Resp 16; Pulse Ox 94% on R/A; jb4 23:45 BP 143 / 81; Pulse 55; Resp 18; Pulse Ox 95% on R/A; jb4 21:16 Body Mass Index 28.73 (93.44 kg, 180.34 cm) mg2 MDM: 21:11 Patient medically screened. pm1 23:44 Data reviewed: vital signs. Counseling: I had a detailed discussion with the patient pm1 and/or guardian regarding: the historical points, exam findings, and any diagnostic results supporting the discharge/admit diagnosis, lab results, radiology results, the need for outpatient follow up, to return to the emergency department if symptoms worsen or persist or if there are any questions or concerns that arise at home. 23:44 ED course: Patient with no acute findings on CT. Troponin x 2 greater than 4 hours pm1 after onset of symptoms and patient without any chest pain or shortness of breath. Patient reports smaller than usual bowel movement with CT showing stool throughout the colon. Patient believes this might be the cause of his symptoms and has some laxatives at home. 04/30 21:15 Order name: Basic Metabolic Panel pm1 04/30 21:15 Order name: CBC with Diff pm1 04/30 21:15 Order name: LFT's pm1 04/30 21:15 Order name: Magnesium pm1 04/30 21:15 Order name: NT PRO-BNP pm1 04/30 21:15 Order name: PT-INR pm1 04/30 21:15 Order name: Troponin (emerg Dept Use Only) pm1 04/30 21:44 Order name: CBC with Automated Diff; Complete Time: 21:56 EDMS / 21:44 Order name: Protime (+INR); Complete Time: 21:56 EDMS /16 22:03 Order name: Basic Metabolic Panel; Complete Time: 22:07 EDMS 16 22:03 Order name: Liver (Hepatic) Function; Complete Time: 22:07 EDMS 16 22:03 Order name: Troponin (Emerg Dept Use Only); Complete Time: 22:07 EDMS 12/16 22:03 Order name: NT PRO-BNP; Complete Time: 22:07 EDMS 12/16 22:03 Order name: Magnesium; Complete Time: 22:07 EDMS /16 21:15 Order name: XRAY Chest (1 view) pm1 12/16 21:15 Order name: EKG; Complete Time: 21:16 pm1 16 21:15 Order name: Cardiac monitoring; Complete Time: 21:30 pm1 04/30 21:15 Order name: EKG - Nurse/Tech; Complete Time: 21:30 pm1 04/30 21:15 Order name: IV Saline Lock; Complete Time: 21:30 pm1 04/30 21:15 Order name: Labs collected and sent; Complete Time: 21:30 pm1 04/30 21:15 Order name: O2 Per Protocol; Complete Time: 21:30 pm1 04/30 21:15 Order name: O2 Sat Monitoring; Complete Time: 21:30 pm1 04/30 21:15 Order name: CT Abd/Pelvis - IV Contrast Only pm1 04/30 22:51 Order name: Troponin (emerg Dept Use Only) pm1 04/30 23:33 Order name: Troponin (Emerg Dept Use Only); Complete Time: 23:44 EDMS Administered Medications: 21:34 Drug: Zofran 4 mg Route: IVP; Site: right forearm; jb4 22:00 Follow up: Response: No adverse reaction; Nausea is decreased jb4 Disposition: 05/01 06:43 Co-signature as Attending Physician, Brian Wilks MD I agree with the assessment and tw4 plan of care. Disposition: 04/30/19 23:48 Discharged to Home. Impression: Unspecified abdominal pain. - Condition is Stable. - Discharge Instructions: Abdominal Pain, Adult. - Prescriptions for Bentyl 20 mg Oral Tablet - take 1 tablet by ORAL route every 6 hours As needed; 20 tablet. - Medication Reconciliation Form, Thank You Letter, Antibiotic Education, Prescription Opioid Use form. - Follow up: Emergency Department; When: As needed; Reason: Worsening of condition. Follow up: Private Physician; When: 2 - 3 days; Reason: Recheck today's complaints, Continuance of care, Re-evaluation by your physician. - Problem is new. - Symptoms have improved. Signatures: Dispatcher [employer] EDMS Collins Ibrahim NP HYDROGEOLOGY PROFESSOR pm1 Fortunato Santos RN RN jb4 Brian Wilks MD MD tw4 Kurt Daniel RN RN mg2 Corrections: (The following items were deleted from the chart) 00:13 04/30 23:48 04/30/2019 23:48 Discharged to Home. Impression: Unspecified abdominal jb4 pain. Condition is Stable. Forms are Medication Reconciliation Form, Thank You Letter, Antibiotic Education, Prescription Opioid Use. Follow up: Emergency Department; When: As needed; Reason: Worsening of condition. Follow up: Private Physician; When: 2 - 3 days; Reason: Recheck today's complaints, Continuance of care, Re-evaluation by your physician. Problem is new. Symptoms have improved. pm1
[2019-05-01 03:41] VITALS: BP 126/83; TEMP 98; O2SAT 97
--- NOTE | 2019-05-01 06:53 | EKG ---
Test Date: 2019-04-30 Test Time: 21:41:32 Title Supervisor: FAUSTINA MEASUREMENT RESULTS: Intervals: Rate: 65 RI: QRSD: 90 QT: 404 QTc: 420 [place]: P: RI: QRS: -3 T: 66 INTERPRETIVE STATEMENTS: Atrial fibrillation with premature ventricular or aberrantly conducted complexes Septal infarct, age undetermined Abnormal ECG Compared to ECG 01/06/2019 09:54:53 Ventricular premature complex(es) now present Myocardial infarct finding still present Electronically Signed On 05-01-19 06:53:11 FORGING ROLL OPERATOR by Gurmeet Kowalski
--- NOTE | 2019-05-01 08:14 | RAD REPORT ---
EXAM DESCRIPTION: Krissy Single View04/30/2019 9:55 pm CLINICAL HISTORY: Cardiomegaly/dizziness COMPARISON: December 2018 FINDINGS: The lungs appear clear of acute infiltrate. The heart is moderately enlarged. Postsurgical changes involve the chest. IMPRESSION: No acute abnormalities displayed
--- NOTE | 2019-05-01 12:32 | RAD REPORT ---
EXAM DESCRIPTION: CT - Abdomen Pelvis W Contrast - 05/01/2019 5:45 am CLINICAL HISTORY: The patient is 88 years old and is Male; ABD PAIN TECHNIQUE: Axial computed tomography images of the abdomen and pelvis with intravenous contrast. S agittal and coronal reformatted images were created and reviewed. This CT exam was performed using one or more of the following dose reduction techniques: automated exposure control, adjustment of t he mA and/or kV according to patient size, and/or use of iterative reconstruction technique. COMPARISON: No relevant prior studies available. FINDINGS: LUNG BASES: There is mild subsegmental atelectasis and/or scarring in bilateral lung bas es. HEART: The heart is enlarged. ABDOMEN: LIVER: Unremarkable. No mass. GALLBLADDER AND BILE DUCTS: Gallbladder is contracted. PANCREAS: Fatty infiltration of the pancreas is noted. The pancreas is atrophic. SPLEEN: Unremarkable. ADRENALS: Unremarkable. No mass. KIDNEYS AND URETERS: Bilateral nonspecific perinephric stranding is noted. The kidneys enhance s ymmetrically. No obstructing renal or ureteral calculus is seen. There is no hydronephrosis or hydrou reter of either kidney. STOMACH AND BOWEL: The stomach is filled with fluid and air. The small bowel is normal in calibe r. Stool is present throughout colon. There is no mucosal thickening or evidence of bowel obstruction . PELVIS: APPENDIX: The appendix is normal in caliber without surrounding inflammation. BLADDER: Unremarkable. No mass. REPRODUCTIVE: Unremarkable as visualized. ABDOMEN and PELVIS: INTRAPERITONEAL SPACE: Unremarkable. No free air. No significant fluid collection. BONES/JOINTS: Scoliotic curvature of the spine is present. There are degenerative changes of the bones. SOFT TISSUES: Evidence of prior left inguinal hernia repair is noted. VASCULATURE: Atherosclerosis of the vasculature is present. The vessels are normal in caliber. No abdominal aortic aneurysm. LYMPH NODES: Unremarkable. No enlarged lymph nodes. IMPRESSION: No acute findings on this contrasted CT of the abdomen and pelvis to explain the patie nt's symptoms. Electronically signed by: Solange Don MD 04/30/2019 10:55 PM SENIOR BI ARCHITECT Due to temporary technical issues with the PACS/Fluency reporting system, reports are being signed by the in house radiologist as a courtesy to ensure prompt reporting. The interpreting radiologist is f ully responsible for the content of the report.
== END 2019-05-01 00:13 | disposition home or self-care (01) ==
LOC: ER 20:53
DX: R10.9 Unspecified abdominal pain (principal); I10 Essential (primary) hypertension; I50.9 Heart failure, unspecified; I48.91 Unspecified atrial fibrillation; Z88.2 Allergy status to sulfonamides
CPT/HCPCS: 93005; 85025; 80048; 36415; 83735; 85610; 80076; 84484 ×2; 83880; 74177; 71045; 96374; 99285; Q9967; J2405

== ENCOUNTER 2020-07-21 07:10 | Inpatient (IN) | payer OTHER ==
--- OUTSIDE RECORDS SUMMARY | 2020-07-21 07:12 | XMS REPORT | Continuity of Care Document ---
:1930 Author Organization [facility] t Address [address] [place] [address] Care Team Providers Name Role Phone SPUHLER Attending Clinician Unavailable Problems This patient has no known problems. Allergies, Adverse Reactions, Alerts This patient has no known allergies or adverse reactions. Medications This patient has no known medications. Procedures This patient has no known procedures. Encounters Start End Encounter Admission Attending Care Care Encounter Source Date/Time Date/Time Type Type Clinicians Facility Department ID 2020-06-23 2020-06-23 Outpatient [facility] [id number] 00:00:00 00:00:[address] 2020-06-02 2020-06-02 Outpatient [facility] [id number] 00:00:00 00:00:[address] 2020-01-25 2020-01-25 Outpatient [facility] [id number] 00:00:00 00:00:00 KAY[facility]AY [address] 2020-01-25 2020-01-25 Outpatient [facility] [id number] 00:00:00 00:00:00 KAYKAY [address] Results This patient has no known results.
--- NOTE | 2020-07-21 08:24 | EDPHYS ---
Physician Documentation [facility] Name: Jayden Lopez Age: 89 yrs Sex: Male : 1930 Arrival Date: 07/21/2020 Time: 07:14 Bed 19 Private MD: ED Physician Quincy Brown HPI: 07/21 08:14 This 89 yrs old Male presents to ER via Wheelchair with complaints of Cough, josefa Shortness Of Breath. 08:15 The patient or guardian reports cough, that is intermittent. Onset: The josefa symptoms/episode began/occurred 3 day(s) ago. Severity of symptoms: At their worst the symptoms were mild, moderate, in the emergency department the symptoms are unchanged. Historical: - Allergies: 07:33 Sulfa (Sulfonamide Antibiotics); ss - Home Meds: 07:33 atorvastatin 40 mg Oral tab 1 tab once daily [Active]; Pradaxa 150 mg Oral cap 1 cap 2 ss times per day [Active]; oxybutynin chloride 5 mg Oral tab 1 tab 2 times per day [Active]; Nexium 40 mg Oral cpDR 1 cap once daily [Active]; Cozaar 50 mg Oral tab 1 tab 2 times per day [Active]; furosemide 40 mg Oral tab 1 tab once daily [Active]; gabapentin 400 mg Oral cap 1 cap 3 times per day [Active]; - PMHx: 07:33 Atrial Fib; CHF; Hypertension; ss - PSHx: 07:33 heart bypass; shoulder, both knee sx; bilateral knee replacement; ss - Immunization history:: Adult Immunizations up to date. - Social history:: Smoking status: Patient denies any tobacco usage or history of. ROS: 08:15 Constitutional: Negative for fever, chills, and weight loss, Eyes: Negative for injury, josefa pain, redness, and discharge, ENT: Negative for injury, pain, and discharge, Neck: Negative for injury, pain, and swelling, Cardiovascular: Negative for chest pain, palpitations, and edema, Abdomen/GI: Negative for abdominal pain, nausea, vomiting, diarrhea, and constipation, Back: Negative for injury and pain, : Negative for injury, bleeding, discharge, and swelling, Skin: Negative for injury, rash, and discoloration, Neuro: Negative for headache, weakness, numbness, tingling, and seizure, Psych: Negative for depression, anxiety, suicide ideation, homicidal ideation, and hallucinations, Allergy/Immunology: Negative for hives, rash, and allergies, Endocrine: Negative for neck swelling, polydipsia, polyuria, polyphagia, and marked weight changes. 08:15 Respiratory: Positive for cough, shortness of breath, at rest. 08:15 MS/extremity: Positive for swelling, of the right leg and left leg. Exam: 08:15 Constitutional: This is a well developed, well nourished patient who is awake, alert, josefa and in no acute distress. Head/Face: Normocephalic, atraumatic. Eyes: Pupils equal round and reactive to light, extra-ocular motions intact. Lids and lashes normal. Conjunctiva and sclera are non-icteric and not injected. Cornea within normal limits. Periorbital areas with no swelling, redness, or edema. ENT: Nares patent. No nasal discharge, no septal abnormalities noted. Tympanic membranes are normal and external auditory canals are clear. Oropharynx with no redness, swelling, or masses, exudates, or evidence of obstruction, uvula midline. Mucous membranes moist. Neck: Trachea midline, no thyromegaly or masses palpated, and no cervical lymphadenopathy. Supple, full range of motion without nuchal rigidity, or vertebral point tenderness. No Meningismus. Chest/axilla: Normal chest wall appearance and motion. Nontender with no deformity. No lesions are appreciated. Abdomen/GI: Soft, non-tender, with normal bowel sounds. No distension or tympany. No guarding or rebound. No evidence of tenderness throughout. Back: No spinal tenderness. No costovertebral tenderness. Full range of motion. Male : Normal genitalia with no discharge or lesions. Skin: Warm, dry with normal turgor. Normal color with no rashes, no lesions, and no evidence of cellulitis. MS/ Extremity: Pulses equal, no cyanosis. Neurovascular intact. Full, normal range of motion. Neuro: Awake and alert, GCS 15, oriented to person, place, time, and situation. Cranial nerves II-XII grossly intact. Motor strength 5/5 in all extremities. Sensory grossly intact. Cerebellar exam normal. Normal gait. Psych: Awake, alert, with orientation to person, place and time. Behavior, mood, and affect are within normal limits. 08:15 Cardiovascular: Rate: tachycardic, Rhythm: irregularly irregular, Pulses: Pulses are 4+ in bilateral radial, brachial, femoral, popliteal, posterior tibial and and dorsalis pedis arteries.. Heart sounds: normal, normal S1and S2, no S3 or S4, no murmur, no rub, no gallop, JVD: is noted bilaterally, to the angle of the jaw. 08:15 Respiratory: mild respiratory distress is noted, Respirations: labored breathing, that is mild, Breath sounds: rales, that are mild, are located in both bases, bronchial sounds, that are mild. 08:15 Musculoskeletal/extremity: Extremities: grossly normal except: swelling. 08:44 ECG was reviewed by the Attending Physician. [facility] Vital Signs: 07:25 BP 149 / 71; Pulse 113; Resp 18; Temp 98.5(O); Pulse Ox 91% on R/A; Weight 92.99 kg; ss Height 6 ft. 0 in. (182.88 cm); Pain 0/10; 07:54 Pulse 106; Resp 20; Pulse Ox 97% on 2 lpm NC; ss 07:25 Body Mass Index 27.80 (92.99 kg, 182.88 cm) ss MDM: 07:34 Patient medically screened. josefa 08:18 Differential diagnosis: Anemia asthma, Bronchitis CHF exacerbation, Chronic Obstructive josefa Pulmonary Disease Myocardial Infarction pneumonia. Antibiotic administration: Not indicated. The patient's Wells Deep Vein Thrombosis Score was calculated as follows: Heart Rate >100 BPM (1.5 Pts) Total Score: 0-2 Pts- Low Risk. Differential Diagnosis: Bronchitis Influenza Upper Respiratory Infection Asthma Exacerbation Viral Syndrome Pneumonia. The patient's pulmonary embolism risk score was calculated as follows: the patients heart rate is greater than 100 beats per minute (1.5 Pts) Total Score: 0-2 points. This patient was found to be at low risk for a pulmonary embolism by using the Well's assessment criteria. Immunization status: Pneumococcal vaccine: Influenza vaccine: Data reviewed: vital signs, nurses notes, lab test result(s), EKG, radiologic studies, plain films. Data interpreted: instructor physical: rate is 106 beats/min, rhythm is atrial fibrillation, Pulse oximetry: on room air is 97 %. Test interpretation: by ED physician or midlevel provider: ECG, plain radiologic studies. Counseling: I had a detailed discussion with the patient and/or guardian regarding: the historical points, exam findings, and any diagnostic results supporting the discharge/admit diagnosis, lab results, radiology results, the need for further work-up and treatment in the hospital. 07/21 07:41 Order name: Basic Metabolic Panel [facility] 07/21 07:41 Order name: CBC with Diff [facility] 07/21 07:41 Order name: LFT's [facility] 07/21 07:41 Order name: Magnesium [facility] 07/21 07:41 Order name: NT PRO-BNP [facility] 07/21 07:41 Order name: PT-INR [facility] 07/21 07:41 Order name: Troponin (emerg Dept Use Only); Complete Time: 10:[address] [facility] 07/21 07:41 Order name: Blood Culture Adult (2) [facility] 07/21 07:41 Order name: Ferritin; Complete Time: 10:[address] [facility] 07/21 07:41 Order name: CRP; Complete Time: 10:[address] [facility] 07/21 07:41 Order name: Lactate; Complete Time: 09:[address] [facility] 07/21 07:41 Order name: Influenza Screen (a \T\ B) [facility] 07/21 07:41 Order name: Basic Metabolic Panel; Complete Time: 10:11 EDMS 07/21 07:41 Order name: CBC with Automated Diff; Complete Time: 10:11 EDMS 07/21 07:42 Order name: Liver (Hepatic) Function; Complete Time: 10:11 EDMS 07/21 07:42 Order name: Magnesium; Complete Time: 10:11 EDMS 07/21 07:42 Order name: NT PRO-BNP; Complete Time: 10:11 EDMS 07/21 07:42 Order name: Protime (+INR); Complete Time: 09:49 EDMS 07/21 07:42 Order name: Influenza Screen (A EDMS 07/21 09:18 Order name: CBC Smear Scan; Complete Time: 10:11 EDMS 07/21 09:46 Order name: Comprehensive Metabolic Panel EDMS 07/21 09:46 Order name: Comprehensive Metabolic Panel EDMS 07/21 09:46 Order name: Magnesium EDMS 07/21 09:46 Order name: Magnesium EDMS 07/21 09:46 Order name: CBC with Automated Diff EDMS 07/21 09:46 Order name: NT PRO-BNP EDMS 07/21 09:46 Order name: NT PRO-BNP EDMS 07/21 09:46 Order name: Protime (+INR) EDMS 07/21 09:46 Order name: Protime (+INR) EDMS 07/21 07:41 Order name: XRAY Chest (1 view); Complete Time: 09:49 josefa 07/21 07:41 Order name: EKG; Complete Time: 07:42 josefa 07/21 07:41 Order name: Cardiac monitoring; Complete Time: 08:27 josefa 07/21 07:41 Order name: EKG - Nurse/Tech; Complete Time: 08:27 josefa 07/21 07:41 Order name: IV Saline Lock; Complete Time: 09:10 josefa 07/21 07:41 Order name: Labs collected and sent; Complete Time: 09:10 josefa 07/21 07:41 Order name: O2 Per Protocol; Complete Time: 08:27 josefa 07/21 07:41 Order name: O2 Sat Monitoring; Complete Time: 08:27 josefa 07/21 09:46 Order name: CONS Physician Consult EDMS 07/21 09:46 Order name: Heart Healthy EDMS 07/21 09:46 Order name: Echo with Doppler EDMS 07/21 09:46 Order name: PTT, Activated Partial Thromb EDMS 07/21 09:46 Order name: PTT, Activated Partial Thromb EDMS 07/21 09:46 Order name: Troponin I EDMS 07/21 09:46 Order name: Troponin I EDMS 07/21 09:46 Order name: Troponin I EDMS 07/21 11:50 Order name: COVID-19/FLU A+B; Complete Time: 13:16 EDMS EC:44 Rate is 108 beats/min. Rhythm is irregularly irregular. QRS Crum is Normal. AR interval josefa is normal. QRS interval is normal. QT interval is normal. No Q waves. T waves are Normal. No ST changes noted. Clinical impression: Atrial Flutter and No evidence of ischemia. Interpreted by me. Reviewed by me. Administered Medications: 08:15 CANCELLED (Duplicate Order): NS 0.9% 1000 ml IV at 125 ml/hr continuous josefa 10:28 Drug: Lasix 40 mg Route: IVP; Site: right forearm; bw 10:29 Drug: Digoxin 0.5 mg Route: IVP; Site: right forearm; bw 10:29 Drug: Lopressor 25 mg Route: PO; bw 10:30 Drug: Pepcid 20 mg Route: IVP; Site: right forearm; 10:33 Drug: Rocephin 1 grams Route: IV; Rate: per protocol; Site: right forearm; 10:48 Follow up: Response: No adverse reaction; Rate change per protocol; IV Status: bw Completed infusion; IV Intake: 100ml 11:52 Drug: Zithromax 500 mg Route: IVPB; Infused Over: 1 hrs; Site: right forearm; Disposition: 07/21/20 08:24 Hospitalization ordered by Felicia Alvares for Inpatient Admission. Preliminary diagnosis are Dyspnea, Diastolic (congestive) heart failure, Atrial fibrillation and flutter - with RVR, Pneumonia, unspecified organism - BILATERAL UPPER LOBE , Elevated white blood cell count. - Bed requested for Telemetry/MedSurg (Inpatient). - Status is Inpatient Admission. ss - Condition is Fair. - Problem is new. - Symptoms have improved. Signatures: Dispatcher [employer] EDWI Quincy Brown MD MD cha Smirch, Shelby, RN RN Mat Marrero RN RN [facility] Raquel Ruano RN RN Corrections: (The following items were deleted from the chart) 08:15 07:41 NS 0.9% 1000 ml IV at 125 ml/hr continuous ordered. josefa josefa 08:47 08:24 Hospitalization Ordered by Felicia Alvares MD for Inpatient Admission. Preliminary josefa diagnosis is Dyspnea; Diastolic (congestive) heart failure; Atrial fibrillation and flutter - with RVR. Bed requested for Telemetry/MedSurg (Inpatient). Status is Inpatient Admission. Condition is Fair. Problem is new. Symptoms have improved. josefa 10:01 08:47 07/21/2020 08:24 Hospitalization Ordered by Felicia Alvares MD for Inpatient josefa Admission. Preliminary diagnosis is Dyspnea; Diastolic (congestive) heart failure; Atrial fibrillation and flutter - with RVR; Pneumonia, unspecified organism - BILATERAL UPPER LOBE . Bed requested for Telemetry/MedSurg (Inpatient). Status is Inpatient Admission. Condition is Fair. Problem is new. Symptoms have improved. josefa 13:28 10:01 07/21/2020 08:24 Hospitalization Ordered by Felicia Alvares MD for Inpatient ss Admission. Preliminary diagnosis is Dyspnea; Diastolic (congestive) heart failure; Atrial fibrillation and flutter - with RVR; Pneumonia, unspecified organism - BILATERAL UPPER LOBE ; Elevated white blood cell count. Bed requested for Telemetry/MedSurg (Inpatient). Status is Inpatient Admission. Condition is Fair. Problem is new. Symptoms have improved. josefa 14:56 13:28 07/21/2020 08:24 Hospitalization Ordered by Felicia Alvares MD for Inpatient ja1 Admission. Preliminary diagnosis is Dyspnea; Diastolic (congestive) heart failure; Atrial fibrillation and flutter - with RVR; Pneumonia, unspecified organism - BILATERAL UPPER LOBE ; Elevated white blood cell count. Bed requested for [facility] ER HOLD. Status is Inpatient Admission. Condition is Fair. Problem is new. Symptoms have improved. ss 16:33 14:56 07/21/2020 08:24 Hospitalization Ordered by Felicia Alvares MD for Inpatient ss Admission. Preliminary diagnosis is Dyspnea; Diastolic (congestive) heart failure; Atrial fibrillation and flutter - with RVR; Pneumonia, unspecified organism - BILATERAL UPPER LOBE ; Elevated white blood cell count. Bed requested for Telemetry/MedSurg (Inpatient). Status is Inpatient Admission. Condition is Fair. Problem is new. Symptoms have improved. ja1
--- NOTE | 2020-07-21 08:24 | ER ---
Nurse's Notes [facility] Name: Jayden Lopez Age: 89 yrs Sex: Male : 1930 Arrival Date: 07/21/2020 Time: 07:14 Bed 19 Private MD: Diagnosis: Dyspnea;Diastolic (congestive) heart failure;Atrial fibrillation and flutter-with RVR;Pneumonia, unspecified organism-BILATERAL UPPER LOBE ;Elevated white blood cell count Presentation: 07/21 07:25 Chief complaint: Patient states: "He had the second dose of pneumonia vaccine ss Tuesday, and then he started coughing and it's just getting worse. He couldn't sleep last night.". Coronavirus screen: cough unrelated to allergies, Client presents with at least one sign or symptom that may indicate coronavirus-19. Standard/surgical mask placed on the client. Ebola Screen: Patient denies exposure to infectious person. Patient denies travel to an Ebola-affected area in the 21 days before illness onset. Initial Sepsis Screen: Does the patient meet any 2 criteria? No. Patient's initial sepsis screen is negative. Does the patient have a suspected source of infection? No. Patient's initial sepsis screen is negative. Risk Assessment: Do you want to hurt yourself or someone else? Patient reports no desire to harm self or others. Onset of symptoms was June 19, 2020. 07:25 Method Of Arrival: Wheelchair 07:25 Acuity: LEX 2 ss Historical: - Allergies: 07:33 Sulfa (Sulfonamide Antibiotics); ss - Home Meds: 07:33 atorvastatin 40 mg Oral tab 1 tab once daily [Active]; Pradaxa 150 mg Oral cap 1 cap 2 ss times per day [Active]; oxybutynin chloride 5 mg Oral tab 1 tab 2 times per day [Active]; Nexium 40 mg Oral cpDR 1 cap once daily [Active]; Cozaar 50 mg Oral tab 1 tab 2 times per day [Active]; furosemide 40 mg Oral tab 1 tab once daily [Active]; gabapentin 400 mg Oral cap 1 cap 3 times per day [Active]; - PMHx: 07:33 Atrial Fib; CHF; Hypertension; ss - PSHx: 07:33 heart bypass; shoulder, both knee sx; bilateral knee replacement; ss - Immunization history:: Adult Immunizations up to date. - Social history:: Smoking status: Patient denies any tobacco usage or history of. Screenin:45 Abuse screen: Denies threats or abuse. Denies injuries from another. Nutritional ss screening: No deficits noted. Tuberculosis screening: Never had TB. Fall Risk None identified. Assessment: 07:45 General: Appears comfortable, Behavior is calm, cooperative, Denies fever, feeling ill, ss fatigue, chills. Pain: Denies pain. Neuro: Level of Consciousness is awake, alert, obeys commands, Oriented to person, place, time, situation, Ground Support Equipment Mechanic are equal bilaterally Speech is normal, Facial symmetry appears normal, Pupils are PERRLA. Cardiovascular: Rhythm is atrial fibrillation. Respiratory: Reports shortness of breath since x 5 days cough that is since x 5 days Airway is patent Trachea midline Respiratory effort is even, unlabored, Respiratory pattern is regular, symmetrical, Breath sounds are coarse bilaterally. Breath sounds with wheezes bilaterally. Respiratory: Reports increased shortness of breath when laying flat or with exertion. GI: Abdomen is round non-distended, Patient currently denies abdominal pain, diarrhea, nausea, vomiting. : No signs and/or symptoms were reported regarding the genitourinary system. EENT: Oral mucosa is moist. Throat is clear. Derm: Skin is intact, is healthy with good turgor, Skin is dry, Skin is pink, warm \\T\\ dry. normal. Musculoskeletal: Circulation, motion, and sensation intact. Range of motion: intact in all extremities. Vital Signs: 07:25 BP 149 / 71; Pulse 113; Resp 18; Temp 98.5(O); Pulse Ox 91% on R/A; Weight 92.99 kg; Height 6 ft. 0 in. (182.88 cm); Pain 0/10; 07:54 Pulse 106; Resp 20; Pulse Ox 97% on 2 lpm NC; ss 07:25 Body Mass Index 27.80 (92.99 kg, 182.88 cm) ED Course: 07:14 Patient arrived in ED. mr 07:16 Quincy Brown MD is Attending Physician. [facility] 07:30 Triage completed. ss 07:33 Arm band placed on right wrist. ss 07:45 Patient has correct armband on for positive identification. Bed in low position. Call light in reach. air sampling and monitoring on. Pulse ox on. NIBP on. Warm blanket given. 08:00 XRAY Chest (1 view) In Process Unspecified. EDMN 08:01 X-ray completed. Portable x-ray completed in exam room. Patient tolerated procedure sw well. 08:20 Felicia Alvares MD is Hospitalizing Provider. [facility] 09:10 Inserted saline lock: 20 gauge in right wrist, using aseptic technique. Blood collected. 09:44 aRquel Ruano, RN is Primary Nurse. 16:33 No provider procedures requiring assistance completed. Patient admitted, IV remains in ss place. Administered Medications: 08:15 CANCELLED (Duplicate Order): NS 0.9% 1000 ml IV at 125 ml/hr continuous josefa 10:28 Drug: Lasix 40 mg Route: IVP; Site: right forearm; bw 10:29 Drug: Digoxin 0.5 mg Route: IVP; Site: right forearm; bw 10:29 Drug: Lopressor 25 mg Route: PO; bw 10:30 Drug: Pepcid 20 mg Route: IVP; Site: right forearm; bw 10:33 Drug: Rocephin 1 grams Route: IV; Rate: per protocol; Site: right forearm; bw 10:48 Follow up: Response: No adverse reaction; Rate change per protocol; IV Status: bw Completed infusion; IV Intake: 100ml 11:52 Drug: Zithromax 500 mg Route: IVPB; Infused Over: 1 hrs; Site: right forearm; bw Intake: 10:48 IV: 100ml; Total: 100ml. bw Outcome: 08:24 Decision to Hospitalize by Provider. [facility] 16:33 Condition: stable ss 16:33 Instructed on the need for admit. 16:33 Patient left the ED. Signatures: Dispatcher [employer] EDMS Quincy Brown MD MD cha Rivera, mr Mena Sue RN RN Taylor Horne Raquel Ruano RN RN
--- NOTE | 2020-07-21 08:27 | RAD REPORT ---
EXAM DESCRIPTION: RAD - Chest Single View - 07/21/2020 8:01 am CLINICAL HISTORY: COUGH COMPARISON: April 2019 TECHNIQUE: AP portable chest image was obtained 07/21/2020 8:01 am . FINDINGS: Extensive airspace opacification throughout most of the right upper lobe. There is signifi cant left upper lobe airspace opacification as well. Interstitial markings are prominent throughout a ll lung cruz. Patchy bilateral lung base opacification is present much less pronounced than seen in the upper lung cruz. Cardiomegaly is present measuring slightly smaller than the prior study. Sternotomy wires are in raya ce. Central vasculature mostly obscured by the airspace disease. No pneumothorax seen. Right costophrenic angle blunting is present and minimal pleural effusions may be present. No acute bony abnormality seen. No acute aortic findings suspected. IMPRESSION: Extensive bilateral upper lobe airspace opacification, right greater than left, suspicio us for bilateral pneumonia. Atypical cardiogenic or noncardiogenic pulmonary edema would be possible.
[2020-07-21 09:07] LABS: Absolute Lymphocytes (CBC) 0.8 K/uL (0.7-4.9); Basophils % 0.4 % (0-1.3); Hematocrit 36.7 % (39.6-49.0); Lymphocytes % 4.8 % (15.3-44.8); MPV 7.1 fL (7.6-11.3); RBC Red Blood Cell Count 3.74 M/uL (4.33-5.43)
[2020-07-21 09:12] LABS: Protime INR 1.35
[2020-07-21] MEDS ORDERED: ONDANSETRON 4 MG/2 ML VIAL IV PRN (09:42)
[2020-07-21 09:52] LABS: ALT/SGPT 55 U/L (12-78); AST/SGOT 36 U/L (15-37); Albumin 2.7 g/dL (3.4-5.0); Alkaline Phosphatase 182 U/L (45-117); BUN Blood Urea Nitrogen 16 mg/dL (7-18); Bicarbonate 29 mmol/L (21-32); Bilirubin Direct 0.5 mg/dL (0-0.2); Glucose Level 94 mg/dL (74-106); Magnesium 2.1 mg/dL (1.8-2.4); NT PRO-BNP 3731 pg/mL (<450); Potassium 4.1 mmol/L (3.5-5.1); Protein, Total 6.9 g/dL (6.4-8.2); Sodium Level 134 mmol/L (136-145); Troponin (Emerg Dept Use Only) < 0.02 ng/mL (0.0-0.045)
[2020-07-21 10:02] LABS: Blood Morphology Comment NOT SEEN (NOT SEEN); Platelet Estimate ADEQ; White Blood Cell Scan OK (OK)
[2020-07-21] MEDS ORDERED: METOPROLOL TAR 25 MG TAB ONE (10:18)
[2020-07-21] MEDS ORDERED: DIGOXIN 0.25 MG/ML AMP ONE (10:18)
[2020-07-21] MEDS ORDERED: CEFTRIAXONE 1000 MG/VIAL ONE (10:18)
[2020-07-21] MEDS ORDERED: AZITHROMYCIN 500 MG INJ IVPB ONE (10:18)
[2020-07-21] MEDS ORDERED: FAMOTIDINE 20 MG/2 ML VIAL IV ONE (10:19)
[2020-07-21] MEDS ORDERED: FUROSEMIDE 40 MG/4 ML VIAL ONE (10:19)
[2020-07-21] MEDS ORDERED: NA CHLORIDE 0.9% 250 ML ONE (10:19)
[2020-07-21] MEDS ORDERED: METOPROLOL TARTRATE 5 MG/5 ML INJ IV ONE (10:19)
[2020-07-21] MEDS ORDERED: NA CHLORIDE 0.9% 100 ML ONE (10:21)
[2020-07-21 11:49] LABS: SARS-COV-2 RT PCR NEGATIVE (NEGATIVE)
[2020-07-21 16:15] VITALS: BMI 27.8
--- NOTE | 2020-07-21 19:04 | CON ---
Date of Consultation: 07/21/2020 Reason For Consultation: CHF. History Of Present Illness: This is 89-year-old male who presented to the emergency room with shortn ess of breath, cough, and significant lower extremity edema and orthopnea. Denies having any chest p ain. No nausea, vomiting, or diarrhea. Past Medical History: Atrial fibrillation, CHF, hypertension, coronary artery disease. Past Surgical History: Cardiac bypass surgery in 2004, knee surgery, shoulder surgery. Family History: No premature coronary artery disease or cancer. Social History: Does not smoke or drink. Does not use any drugs. Medications: Refer to reconciliation sheet for detailed list. Allergies: SULFA. Review of Systems: All systems reviewed and they were negative except what mentioned in the HPI. Physical Examination: Vital Signs: Reviewed. Head and Neck: Pupils are equal, reactive to light. Intact eye movements. No JVD. No cervical lym phadenopathy. Neck: Supple. Thyroid is not enlarged. Lungs: Clear to auscultation with no rhonchi, wheezing or crackles. Heart: Regular. No extra sounds. Abdomen: Soft, nontender. Bowel sounds positive. No organomegaly. No masses or hernia. No rigidi ty or rebound. Extremities: 2 to 3+ pitting edema. No clubbing, cyanosis. Intact pulses. Skin: No rash. Neurologic: Alert, awake, oriented x3. No acute focal deficits appreciated. Lymph nodes: No cervical or axillary lymphadenopathy. Investigations: Sodium 134, creatinine 0.77. Troponin is 0.02. BNP is 3731. White blood cell count 16.8, hemoglobin 12.6. Chest x-ray consistent of pneumonia. Assessment And Plan: 1.Fluid overload status with significant lower extremity edema and orthopnea. I recommend Lasix 40 mg IV q.12 hours. Monitor BUN, creatinine, electrolytes, and obtain echocardiogram. 2.Atrial fibrillation with borderline rapid ventricular response, better now with IV metoprolol and received the dose of IV digoxin. I agree with metoprolol 50 mg twice a day, and if heart rate goes u p, I would recommend amiodarone drip. The patient was started on Lovenox appropriately. Continue an ticoagulation as his CHADS-VASC score is elevated. Please obtain echocardiogram. Further recommenda tions based on that and do serial sets of cardiac enzymes. SR/MODL Voice ID: [id number] Report ID: [id number]
[2020-07-21] MEDS: ENOXAPARIN 100 MG/ML SYR SQ SCH (19:51)
[2020-07-21] MEDS: METOPROLOL TAR 50 MG TAB PO SCH (19:51)
[2020-07-22 04:56] LABS: Basophils % 0.3 % (0-1.3); Hematocrit 37.5 % (39.6-49.0); Lymphocytes % 6.5 % (15.3-44.8); MPV 7.8 fL (7.6-11.3); RBC Red Blood Cell Count 3.82 M/uL (4.33-5.43)
[2020-07-22 05:04] LABS: Protime INR 1.43
[2020-07-22 05:20] LABS: Albumin 2.6 g/dL (3.4-5.0); Potassium 4.1 mmol/L (3.5-5.1); Protein, Total 6.6 g/dL (6.4-8.2)
[2020-07-22] MEDS ORDERED: [UNRECOGNIZED DRUG - OTHER] IH PRN (07:26)
[2020-07-22] MEDS ORDERED: FLUTICASONE IH PRN (07:26)
[2020-07-22] MEDS ORDERED: HOME MED 1 EA UNK (Fluticasone Propionate [Flovent Diskus] 50 MCG Blst.W.Dev) IH PRN (07:26)
[2020-07-22] MEDS ORDERED: ALBUTEROL INHALER 60 PUFF/8 GM IH PRN (07:26)
[2020-07-22] MEDS ORDERED: SALMETEROL IH PRN (07:26)
--- NOTE | 2020-07-22 07:26 | P.HP ---
Certification for Inpatient Patient admitted to: Inpatient With expected LOS: >2 Midnights Patient will require the following post-hospital care: None Practitioner: I am a practitioner with admitting privileges, knowledge of patient current condition, hospital course, and medical plan of care. Services: Services provided to patient in accordance with Admission requirements found in Title 42 Section 412.3 of the Code of Federal Regulations Patient History Date of Service: 07/21/20 Reason for admission: Atrial fibrillation with rapid ventricular small History of Present Illness: Patient is a 89-year-old gentleman who came to the hospital with shortness of breath and atrial fibrillation. Patient's heart rate was elevated in the 100s. Patient was given IV digoxin and IV Lopressor and heart rates controlled. Continue with metoprolol at this time. Monitor volume status in get an echocardiogram. Cardiology consultation as well. Check thyroid studies. Patient be admitted to the hospital for further evaluation. Allergies Sulfa (Sulfonamide Antibiotics) Allergy (Intermediate, Verified 12/04/12 13:11) Shortness of breath Home Medications: Atorvastatin Calcium [Lipitor] 40 mg PO BEDTIME 01/06/19 Dabigatran Etexilate Mesylate [Pradaxa*] 150 mg PO BID 01/06/19 Esomeprazole Mag Trihydrate [Nexium] 40 mg PO DAILY 01/06/19 Furosemide [Lasix*] 40 mg PO DAILY 01/06/19 Gabapentin [Neurontin*] 600 mg PO TID 01/06/19 Iron,Carb/Vit C/Vit B12/Folic [Iron 100 Plus Tablet] 65 mg PO DAILY 01/06/19 Losartan Potassium [Cozaar*] 50 mg PO BID 01/06/19 Oxybutynin Chloride [Ditropan*] 5 mg PO BID 01/06/19 Albuterol Sulfate [Proair Hfa] 2 puff IH SEECOM PRN 01/07/19 Fluticasone Propionate [Flovent Diskus] 1 - 2 spray IH DAILY PRN 01/07/19 Fluticasone/Salmeterol [Advair Hfa 230-21 Mcg Inhaler] 2 puff IH BID PRN 01/07/19 Hydrocodone/Acetaminophen [Hydrocodone-Acetamin 10-325 mg] 1 tab PO Q4H PRN 01/07/19 Multivit-Min/FA/Lycopen/Lutein [Centrum Silver Tablet] 1 tab PO DAILY 01/07/19 - Past Medical/Surgical History Has patient received pneumonia vaccine in the past: Yes Diabetic: No -: Atrial fibrillation -: heart disease -: right knee replacement 2007, left Knee replacement 10/2012 -: Hypertension -: left knee replacement 10/26 -: heart surgery- CABG -: left shoulder surgery Psychosocial/ Personal History: Patient lives alone. He is currently independent with his iADL, ADLs. Daughter is in [place] - Family History Father Medical History: Heart disease Mother Medical History: Heart disease - Social History Smoking Status: Former smoker Alcohol use: No CD- Drugs: No Caffeine use: Yes Place of Residence: Home Review of Systems 10-point ROS is otherwise unremarkable Physical Examination - Vital Signs Temperature: 96.9 F Blood Pressure: 123/58 Pulse: 63 Respirations: 16 Pulse Ox (%): 95 - Physical Exam General: Alert, In no apparent distress, Oriented x3 HEENT: Atraumatic, PERRLA, Mucous membr. moist/pink, EOMI, Sclerae nonicteric Neck: Supple, 2+ carotid pulse no bruit, No LAD, Without JVD or thyroid abnormality Respiratory: Normal air movement, Diminished, Crackles/rales Cardiovascular: Irregular heart rate/rhythm, Systolic murmur Gastrointestinal: Normal bowel sounds, Soft and benign, Non-distended, No tende rness Musculoskeletal: No clubbing, No swelling, No tenderness Integumentary: No rashes Neurological: Normal gait, Normal speech, Normal strength at 5/5 x4 extr, Normal tone, Sensation intact, Cranial nerves 3-12 intact, Normal affect Lymphatics: No axilla or inguinal lymphadenopathy - Studies Laboratory Data (last 24 hrs) 07/21/20 08:53: PT 15.6 H, INR 1.35 07/21/20 08:53: WBC 16.80 H, Hgb 12.6 L, Hct 36.7 L, Plt Count 295 07/21/20 08:53: Sodium 134 L, Potassium 4.1, BUN 16, Creatinine 0.77, Glucose 94, Magnesium 2.1, Total Bilirubin 1.0, AST 36, ALT 55, Alkaline Phosphatase 182 H Assessment & Plan - Problems (Diagnosis) (1) Acute CHF (congestive heart failure) Current Visit: Yes Status: Acute (2) Atrial fibrillation Current Visit: No Status: Acute Qualifiers: (3) Coronary artery disease Current Visit: No Status: Chronic Qualifiers: (4) History of coronary artery bypass graft Current Visit: No Status: Chronic - Plan 1. Echocardiogram is pending 2. Continue with gentle diuresing 3. We will start patient on a Beta asher 4. Cardiology consultation 5. Aggressive diuresis 6. Strict I's and O's 7. Repeat CXR 8. Daily weights 9. Education regarding diet and treatment of congestive heart failure Discharge Plan: Home Plan to discharge in: Greater than 2 days - Advance Directives Does patient have a Living Will: No Does patient have a Durable POA for Healthcare: Yes - Code Status/Comfort Care Code Status Assessed: Yes Code Status: Full Code Critical Care: No Time Spent Managing PTS Care (In Minutes): 40
[2020-07-22] MEDS: METOPROLOL TAR 50 MG TAB PO SCH ×2 (08:48→21:00)
[2020-07-22] MEDS: OXYBUTYNIN CHLORIDE 5 MG TAB PO SCH ×2 (08:48→20:22)
[2020-07-22] MEDS: LOSARTAN POTASSIUM 50 MG TABLET PO SCH ×2 (08:48→21:00)
[2020-07-22] MEDS: ASPIRIN EC 81 MG TAB PO SCH (08:48)
[2020-07-22] MEDS: PANTOPRAZOLE 40MG TABLET PO SCH (08:48)
[2020-07-22] MEDS: FUROSEMIDE 40 MG TABLET PO SCH (08:48)
[2020-07-22] MEDS: GABAPENTIN 300 MG CAP PO SCH ×3 (08:48→20:22)
[2020-07-22] MEDS: ENOXAPARIN 100 MG/ML SYR SQ SCH ×2 (08:49→20:21)
[2020-07-22] MEDS: DABIGATRAN 150 MG CAP PO SCH ×3 (09:00→20:22)
[2020-07-22] MEDS ORDERED: FUROSEMIDE 20 MG/ 2ML VIAL IV ONE (13:14)
[2020-07-22] MEDS ORDERED: ALBUMIN HUMAN 25% 50 ML IV ONE (13:14)
[2020-07-22] MEDS: HYDROCODONE/APAP 10/325 TAB PO PRN ×2 (15:29→21:50)
[2020-07-22] MEDS: BENZONATATE 100 MG CAP PO PRN (15:29)
[2020-07-22] MEDS ORDERED: ATORVASTATIN 40 MG TAB PO SCH (21:00)
[2020-07-23] MEDS: BENZONATATE 100 MG CAP PO PRN ×3 (03:19→14:16)
[2020-07-23] MEDS: HYDROCODONE/APAP 10/325 TAB PO PRN (03:30)
[2020-07-23] MEDS: PANTOPRAZOLE 40MG TABLET PO SCH (05:12)
[2020-07-23 06:55] LABS: Absolute Lymphocytes (CBC) 0.8 K/uL (0.7-4.9); Basophils % 0.4 % (0-1.3); Hematocrit 32.7 % (39.6-49.0); Lymphocytes % 5.6 % (15.3-44.8); RBC Red Blood Cell Count 3.36 M/uL (4.33-5.43)
[2020-07-23 07:07] LABS: Albumin 2.3 g/dL (3.4-5.0); Bilirubin Total 0.8 mg/dL (0.2-1.0); Potassium 3.5 mmol/L (3.5-5.1); Protein, Total 6.1 g/dL (6.4-8.2)
[2020-07-23 07:11] LABS: Thyroid Stimulating Hormone 0.566 uIU/mL (0.360-3.740)
[2020-07-23] MEDS ORDERED: POTASSIUM CL SA 10 MEQ TAB PO ONE (09:00)
[2020-07-23] MEDS: LOSARTAN POTASSIUM 50 MG TABLET PO SCH (09:03)
[2020-07-23] MEDS: OXYBUTYNIN CHLORIDE 5 MG TAB PO SCH (09:04)
[2020-07-23] MEDS: DABIGATRAN 150 MG CAP PO SCH (09:04)
[2020-07-23] MEDS: METOPROLOL TAR 50 MG TAB PO SCH (09:04)
[2020-07-23] MEDS: FUROSEMIDE 40 MG TABLET PO SCH (09:04)
[2020-07-23] MEDS: GABAPENTIN 300 MG CAP PO SCH ×2 (09:04→14:16)
[2020-07-23] MEDS: ASPIRIN EC 81 MG TAB PO SCH (09:04)
[2020-07-23] MEDS: ENOXAPARIN 100 MG/ML SYR SQ SCH (09:05)
--- NOTE | 2020-07-23 09:07 | ECHO ---
HEIGHT: 6 ft 0 in WEIGHT: 205 lb 0 oz DATE OF STUDY: 07/22/[address]: Felicia Alvares MD 2-DIMENSIONAL: YES M.MODE: YES DOPPLER: YES COLOR FLOW: YES TDS: YES PORTABLE: NO DEFINITY: NO BUBBLE STUDY: NO DIAGNOSIS: CONGESTIVE HEART FAIULRE CARDIAC HISTORY: CATHERIZATION: SURGERY: PROSTHETIC VALVE: PACEMAKER: MEASUREMENTS (cm) DIASTOLIC (NORMALS) SYSTOLIC (NORMALS) IVSd 1.2 (0.6-1.2) LA Diam 5.0 (1.9-4.0) LVEF 51% LVIDd 4.8 (3.5-5.7) LVIDs 3.6 (2.0-3.5) %FS 26% LVPWd 1.3 (0.6-1.2) Ao Diam 3.0 (2.0-3.7) 2 DIMENSIONAL ASSESSMENT: RIGHT ATRIUM: NORMAL LEFT ATRIUM: DILATED RIGHT VENTRICLE: NORMAL LEFT VENTRICLE: LEFT VENTRICULAR HYPERTROPHY TRICUSPID VALVE: NORMAL MITRAL VALVE: MITRAL ANNULAR CALCIFICATION PULMONIC VALVE: NORMAL AORTIC VALVE: SCLEROSIS PERICARDIAL EFFUSION: NONE AORTIC ROOT: NORMAL LEFT VENTRICULAR WALL MOTION: DIASTOLIC DYSFUNCTION. DOPPLER/COLOR FLOW: MILD TRICUSPID REGURGITATION. RIGHT VENTRICULAR SYSTOLIC PRESSURE 41 mmHg. COMMENTS: DIASTOLIC DYSFUNCTION. NORMAL LEFT VENTRICULAR EJECTION FRACTION. MILD TRICUSPID REGURGITATION. MILD PULMONARY HYPERTENSION. RIGHT VENTRICULAR SYSTOLIC PRESSURE 41 mmHg. AORTIC SCLEROSIS. MITRAL ANNULAR CALCIFICATION. LEFT ATRIAL ENLARGEMENT. LEFT VENTRICULAR HYPERTROPHY. TECHNOLOGIST: Darcy GARCIA
[2020-07-23 10:55] VITALS: O2SAT 94
[2020-07-23 12:05] VITALS: BP 97/54; TEMP 98
--- NOTE | 2020-07-23 12:43 | P.PN ---
Subjective Date of Service: 07/22/20 Subjective: No new changes, No C/O voiced, Improving Review of Systems 10-point ROS is otherwise unremarkable Physical Examination - Vital Signs Temperature: 98.0 F Blood Pressure: 97/54 Pulse: 77 Respirations: 18 Pulse Ox (%): 92 - Physical Exam General: Alert, In no apparent distress, Oriented x3 Respiratory: Crackles/rales Cardiovascular: Regular rate/rhythm, Normal S1 S2, No murmurs Gastrointestinal: Normal bowel sounds, Soft and benign, Non-distended, No tenderness Musculoskeletal: No clubbing, No tenderness, Swelling Neurological: Sensation intact, Cranial nerves 3-12 intact - Studies Medications List Reviewed: Yes Assessment & Plan - Problems (Diagnosis) (1) Acute CHF (congestive heart failure) Current Visit: Yes Status: Acute (2) Atrial fibrillation Current Visit: No Status: Acute Qualifiers: (3) Coronary artery disease Current Visit: No Status: Chronic Qualifiers: (4) History of coronary artery bypass graft Current Visit: No Status: Chronic - Plan Plan of care as mentioned below 1. Echocardiogram is pending 2. Continue with gentle diuresing 3. We will start patient on a Beta asher 4. Cardiology consultation 5. Aggressive diuresis 6. Strict I's and O's 7. Repeat CXR 8. Daily weights 9. Education regarding diet and treatment of congestive heart failure Discharge Plan: Home Plan to discharge in: Greater than 2 days - Advance Directives Does patient have a Living Will: No Does patient have a Durable POA for Healthcare: Yes - Code Status/Comfort Care Code Status: Full Code Critical Care: No Time Spent Managing PTS Care (In Minutes): 35
--- NOTE | 2020-07-26 07:13 | PN ---
Date of Progress Note: 07/22/2020 Subjective: Mr. Lopez was seen by Dr. Schafer on 07/21/2020 for fluid overload status with significant lower extremity edema and orthopnea. He was placed on Lasix 40 mg IV every 12 hours. He also has a trial fibrillation, has received IV metoprolol and IV digoxin. He is on metoprolol 50 b.i.d. He was on Lovenox. Echocardiogram that was done showed an ejection fraction of 51% with diastolic dysfunct ion, mild pulmonary hypertension with a right ventricular systolic pressure of 41 mmHg, aortic sclero sis, left ventricular hypertrophy, left atrial enlargement with mild mitral annular calcification. I think the patient should go home on beta-blockers and anticoagulation with Eliquis and/or Xarelto at a low dose considering his age. Case was discussed with Dr. Alvares. We will be happy to see the vish ent as an outpatient. CRISTIAN/RSOLYN Voice ID: [id number] Report ID: [id number]
--- NOTE | 2020-08-12 01:12 | P.DS ---
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 Patient's heart rate was elevated in the 100s. Patient was given IV digoxin and IV Lopressor and heart rates controlled. Continue with metoprolol at this time. Monitor volume status in get an echocardiogram. Cardiology consultation as well. Check thyroid studies. Patient be admitted to the hospital for further evaluation. Hospital Course: Patient has done well during hospital stay. Patient is clinically doing better. At this time patient is stable for discharge home. Vital Signs/Physical Exam: Temp Pulse Resp BP Pulse Ox 98.0 F 77 18 97/54 L 92 07/23/20 12:43 07/23/20 12:43 07/23/20 12:43 07/23/20 12:43 07/23/20 12:43 General: Alert, In no apparent distress, Oriented x3 Laboratory Data at Discharge: WBC 14.30 K/uL (4.3-10.9) H 07/23/20 06:25 Hgb 11.2 g/dL (13.6-17.9) L 07/23/20 06:25 Hct 32.7 % (39.6-49.0) L 07/23/20 06:25 Plt Count 322 K/uL (152-406) 07/23/20 06:25 PT 16.5 SECONDS (9.5-12.5) H 07/22/20 03:39 INR 1.43 07/22/20 03:39 APTT 30.4 SECONDS (24.3-36.9) 07/22/20 03:39 Sodium 134 mmol/L (136-145) L 07/23/20 06:25 Potassium 3.5 mmol/L (3.5-5.1) 07/23/20 06:25 BUN 23 mg/dL (7-18) H 07/23/20 06:25 Creatinine 0.86 mg/dL (0.55-1.3) 07/23/20 06:25 Glucose 82 mg/dL (74-106) 07/23/20 06:25 Magnesium 2.0 mg/dL (1.8-2.4) 07/23/20 06:25 Total Bilirubin 0.8 mg/dL (0.2-1.0) 07/23/20 06:25 AST 60 U/L (15-37) H 07/23/20 06:25 ALT 71 U/L (12-78) 07/23/20 06:25 Alkaline Phosphatase 184 U/L (45-117) H 07/23/20 06:25 Troponin I < 0.02 ng/mL (0.0-0.045) 07/22/20 02:12 Home Medications: Atorvastatin Calcium [Lipitor] 40 mg PO BEDTIME 01/06/19 Dabigatran Etexilate Mesylate [Pradaxa*] 150 mg PO BID 01/06/19 Esomeprazole Mag Trihydrate [Nexium] 40 mg PO DAILY 01/06/19 Furosemide [Lasix*] 40 mg PO DAILY 01/06/19 Gabapentin [Neurontin*] 600 mg PO TID 01/06/19 Iron,Carb/Vit C/Vit B12/Folic [Iron 100 Plus Tablet] 65 mg PO DAILY 01/06/19 Oxybutynin Chloride [Ditropan*] 5 mg PO BID 01/06/19 Albuterol Sulfate [Proair Hfa] 2 puff IH SEECOM PRN 01/07/19 Fluticasone Propionate [Flovent Diskus] 1 - 2 spray IH DAILY PRN 01/07/19 Fluticasone/Salmeterol [Advair Hfa 230-21 Mcg Inhaler] 2 puff IH BID PRN 01/07/19 Hydrocodone/Acetaminophen [Hydrocodone-Acetamin 10-325 mg] 1 tab PO Q4H PRN 01/07/19 Multivit-Min/FA/Lycopen/Lutein [Centrum Silver Tablet] 1 tab PO DAILY 01/07/19 Benzonatate [Tessalon Perle*] 200 mg PO TID PRN #60 cap 07/23/20 Levalbuterol HCl [Xopenex] 1.25 mg NEB Q8HR PRN #60 amp 07/23/20 Losartan Potassium [Cozaar*] 0.5 tab PO BID #30 07/23/20 Metoprolol Tartrate [Lopressor*] 50 mg PO BID #60 tab 07/23/20 predniSONE [Prednisone] 20 mg PO DAILY #3 tablet 07/23/20 New Medications: Losartan Potassium [Cozaar*] 0.5 tab PO BID #30 Metoprolol Tartrate [Lopressor*] 50 mg PO BID #60 tab predniSONE [Prednisone] 20 mg PO DAILY #3 tablet Benzonatate [Tessalon Perle*] 200 mg PO TID PRN #60 cap PRN Reason: Cough Levalbuterol HCl [Xopenex] 1.25 mg NEB Q8HR PRN #60 amp PRN Reason: wheezing/dyspnea Physician Discharge Instructions: OK TO DC IV AND DC HOME FOLLOW-UP WITH PRIMARY CARE PROVIDER IN 1-2 WEEKS FOLLOW-UP WITH CARDIOLOGY IN 1-2 WEEKS RETURN TO THE ER IF symptoms worsen CALL or TEXT DR. NAIK AT [phone] IF ANY QUESTIONS REGARDING HOSPITAL STAY. PLEASE CALL THE FLOOR AT [phone] IF ANY MEDICATION OR NURSING QUESTIONS. Diet: Low sodium Activity: Fall precautions Followup: Richard Sierra MD [ACTIVE - CAN ADMIT] - 1-2 Weeks (Call for appointment.) LATRELL SAMS [Primary Care Provider] - 1-2 Weeks (Call for appointment.) Time spent managing pt's care (in minutes): 35
== END 2020-07-23 14:45 | disposition home or self-care (01) | DRG 291 ==
LOC: ER 07:10 → ERHOLD 09:43 → 4TH 15:55
PROVIDERS: ADMIT Hospitalist; ATTEND Hospitalist
DX: I11.0 Hypertensive heart disease with heart failure (principal); J18.9 Pneumonia, unspecified organism; I48.91 Unspecified atrial fibrillation; I50.23 Acute on chronic systolic (congestive) heart failure; I27.20 Pulmonary hypertension, unspecified; I25.10 Atherosclerotic heart disease of native coronary artery without angina pectoris; Z88.1 Allergy status to other antibiotic agents; Z79.899 Other long term (current) drug therapy; Z95.1 Presence of aortocoronary bypass graft; Z96.653 Presence of artificial knee joint, bilateral; Z60.2 Problems related to living alone; Z87.891 Personal history of nicotine dependence; Z20.822 Contact with and (suspected) exposure to COVID-19
CPT/HCPCS: 0240U; 36415; 71045; 80048; 80053; 80076; 82728; 83605; 83735; 83880; 84439; 84443; 84484; 85025; 85610; 85730; 86140; 87040; 93005; 93306; 96374; 96375; 99284; J0456; J1160; J1650; J1940; J7050; P9047

== ENCOUNTER 2020-08-12 13:35 | Inpatient (IN) | payer OTHER ==
--- OUTSIDE RECORDS SUMMARY | 2020-08-12 13:41 | XMS REPORT | Continuity of Care Document ---
:1930 Author Organization [facility] t Address 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 06-01 [facility] ears ears 00:00: st 00 Allergies, Adverse Reactions, Alerts Allergy Allergy Status Severity Reaction(s) Onset Inactive Treating Comm ents Source Name Type Date Date Clinician Sulfa Propensi Active [place] (Sulfona ty to 17 [facility] mide adverse 00:00: st Antibiot reaction 00 ics) s to drug Social History Social Habit Start Date Stop Date Quantity Comments Source Tobacco use and 2018-07-26 2018-07-26 Never used [facility] ethodist exposure 00:00:00 00:00:00 Alcohol intake 2018-07-26 2018-07-26 Current [place] Me thodist 00:00:00 00:00:00 non-drinker of alcohol (finding) Sex Ass[birth year] At [birth year] Shyam Ramos ethodist 00:00:00 00:00:00 Smoking Status Start Date Stop Date Source Never smoker Shyam Methodis t Medications Ordered Filled Start Stop Current Ordering Indication Dosage Frequency Signature Comments Components Source Medication Medication Date Date Medication? Clinician (SIG) Name Name loratadine 2018-05 Yes TAKE 1 [place] (CLARITIN) 1-08 TABLET BY Meth jose francisco 10 mg 00:00: MOUTH st tablet 00 EVERY DAY atorvastati Yes 40mg QD Take 40 mg [place] (LIPITOR) 3-13 by mouth Meth jose francisco 40 MG 15:05: daily. st tablet 12 dabigatran Yes 150mg Q.5D Take 150 [place] etexilate 3-13 mg by [facility] (PRADAXA) 15:05: mouth 2 st 150 mg 12 (two) capsu times a day. oxybutynin 2018- Yes 5mg [id number] Take 5 mg [place] (DITROPAN) 3-13 [id number] by mouth 3 [facility] 5 MG tablet 15:05: 3D (three) st 12 times a day. esomeprazol Yes 40mg QD Take 40 mg [place] e (NexIUM) 3-13 by mouth Metho di 40 MG 15:05: daily st capsule 12 before breakfast. losartan 2018- Yes 50mg QD Take 50 mg Rodolfo ston (COZAAR) 50 3-13 by mouth Meth jose francisco MG tablet 15:05: daily. st 12 furosemide 2018-0 Yes 40mg Q.5D Take 40 mg [place] (LASIX) 40 3-13 by mouth 2 Met hodi mg tablet 15:05: (two) st 12 times a day. tadalafil 2018-0 Yes 20mg Q24H Take 20 mg [place] (CIALIS) 20 3-13 by mouth Meth jose francisco mg tablet 15:05: daily as st 12 needed. gabapentin 2018-0 Yes 400mg Q.[id number] Take 400 [place] (NEURONTIN) 3-13 [id number] mg by M ethodi 400 mg 15:05: 3D mouth 3 st capsule 12 (three) times a day. carvedilol 2018- Yes 3.125mg Q.5D Take 3.125 [place] (COREG) 3-13 mg by Methodi 3.125 MG 15:05: mouth 2 st tablet 12 (two) times a day with meals. HYDROcodone Yes TAKE 1 [place] -acetaminop 2-26 TABLET BY Met deonte duarte (NORCO) 00:00: MOUTH st 10-325 mg 00 EVERY 4 TO per tablet 6 HOURS NEEDED FOR PAIN meclizine Yes TAKE 1 TO Rodolfo amanda (ANTIVERT) 2-25 2 TABLETS Meth jose francisco 12.5 mg 00:00: BY MOUTH 3 st tablet 00 TIMES A DAY NEEDED Immunizations Ordered Immunization Filled Immunization Date Status Commen ts Source Name Name PFIZER COVID-19 MRNA 2020-06-23 Completed [place] VACCINATION 00:00:00 Buddhist PFIZER COVID-19 MRNA 2020-06-02 Completed [place] VACCINATION 00:00:00 Buddhist Procedures Procedure Date / Time Performed Performing Clinician Sourc e MRI SACRUM AND OR 2020-01-25 19:37:52 Kaykay Otero COCCYX WO CONTRAST MRI LUMBAR SPINE WO 2020-01-25 19:03:36 Kaykay Otero CONTRAST Plan of Care Planned Activity Planned Date Details Comments Source Future Scheduled 2019-12-15 INFLUENZA VACCINE Neo ballesteros Buddhist Test 00:00:00 [code = INFLUENZA VACCINE] Future Scheduled 1996 65+ PNEUMOCOCCAL Shyam Buddhist Test 00:00:00 VACCINE (1 of 1 - PPSV23) [code = 65+ PNEUMOCOCCAL VACCINE (1 of 1 - PPSV23)] Future Scheduled 1981 SHINGLES VACCINES (#1) Jose Ramon baptiste Buddhist Test 00:00:00 [code = SHINGLES VACCINES (#1)] Encounters Start End Encounter Admission Attending Care Care Encounter Source Date/Time Date/Time Type Type Clinicians Facility Department ID 2020-06-23 2020-06-23 Outpatient [facility] [id number] [place] 00:00:00 00:00:[address] 2020-06-02 2020-06-02 Outpatient [facility] [id number] [place] 00:00:00 00:00:[address] 2020-01-25 2020-01-25 Outpatient [place], [facility] [id number] [place] 00:00:00 00:00:00 KAYKAY [address] 2020-01-25 2020-01-25 Outpatient [facility], [facility] [id number] [place] 00:00:00 00:00:00 KAYKAY [address] Results Test Description Test Time Test Comments Results Result Sourc e Comments MRI Lumbar Spine 2020-01-15 [facility] Radiology Results Method ist 19:53:18 01/25/2020 7:56 PM CDT EXAMINATION: MRI LUMBAR SPINE WO CONTRASTCLINICAL HISTORY: M54.41 Lumbago with sciatica right side, 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 No central canal or foraminal narrowing.L2-3: Posterior disc bulge and bilateral facet arthropathy without significant canal or foraminal narrowing.L3-4: Posterior disc bulge, bilateral facet arthropathy, ligamentum flavum thickening and scoliotic curvature causes mild to moderate right lateral recess and right foraminal narrowing.L4-5: Posterior disc bulge, facet arthropathy, ligamentum flavum thickening and scoliotic curvature causes mild narrowing of the right lateral recess and mild narrowing of the right foramen. Prominent osteophytosis along the right facet joint.L5-S1: Posterior osteophytosis, facet arthropathy and ligament flavum thickening causes mild to moderate left and mild right lateral recess narrowing and mild to moderate bilateral foraminal narrowing.IMPRESSION:L evoscoliosis of the lumbar spine and multilevel degenerative changes as above.[id number] MRI Sacrum And 2020-01-15 Interface, [place] Or Coccyx Wo 1 Radiology Results Metho dist Contrast 19:46:33 Incoming 01/25/2020 7:49 PM CDT EXAMINATION: MRI SACRUM AND OR COCCYX WO CONTRASTCLINICAL HISTORY: M54.41 Lumbago with sciatica right side, M06.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 There is no evidence of acute sacral insufficiency fracture. There is no focal bone suspicious lesion. 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 The sacral spinal canal and neural foramina are unremarkable. Spondylotic disc space narrowing is seen at L5-S1 level.[facility]-[id number]
[2020-08-12 14:47] LABS: Absolute Lymphocytes (CBC) 1.6 K/uL (0.7-4.9); Basophils % 0.4 % (0-1.3); Lymphocytes % 11.3 % (15.3-44.8); MPV 7.2 fL (7.6-11.3); RBC Red Blood Cell Count 4.47 M/uL (4.33-5.43)
[2020-08-12] MEDS ORDERED: ONDANSETRON 4 MG/2 ML VIAL ONE ×2 (14:57→19:51)
[2020-08-12] MEDS ORDERED: FAMOTIDINE 20 MG/2 ML VIAL IV ONE (14:57)
[2020-08-12] MEDS ORDERED: PROMETHAZINE INJ 25 MG/ML AMP ONE (14:57)
[2020-08-12] MEDS ORDERED: HYDROMORPHONE HCL 1 MG/ML INJ ONE (14:57)
[2020-08-12] MEDS ORDERED: NA CHLORIDE 0.9% 1,000 ML ONE (14:57)
[2020-08-12] MEDS ORDERED: CEFTRIAXONE/SWI 1gm 1 GM/10 ML SYR ONE (14:57)
[2020-08-12 15:15] LABS: Albumin 3.4 g/dL (3.4-5.0); Bilirubin Direct 0.3 mg/dL (0-0.2); Protein, Total 8.5 g/dL (6.4-8.2)
--- NOTE | 2020-08-12 15:35 | RAD REPORT ---
EXAM DESCRIPTION: CT - Abdomen Pelvis W Contrast - 08/12/2020 3:22 pm CLINICAL HISTORY: Abdominal pain COMPARISON: 2019 TECHNIQUE: Computed axial tomography of the abdomen pelvis was obtained. 100 cc Isovue-300 was admin istered intravenously. Oral contrast was not requested which limits evaluation of bowel. All CT scans are performed using dose optimization technique as appropriate and may include automated exposure control or mA/KV adjustment according to patient size. FINDINGS: The liver, spleen, pancreas, adrenal and kidneys appear unremarkable. The stomach and duodenum are dilated. There is moderate dilatation of jejunum and proximal ileum. The remainder of the ileum is decompressed. Transition point anterior upper right pelvis No free air. Postsurgical changes of a left inguinal hernia repair IMPRESSION: High-grade small bowel obstruction. The site of obstruction is within anterior right upp er pelvis perhaps by an adhesion
--- NOTE | 2020-08-12 15:43 | ER ---
Nurse's Notes [facility] Name: Jayden Lopez Age: 89 yrs Sex: Male : 1930 Arrival Date: 08/12/2020 Time: 13:38 Bed 15 Private MD: Diagnosis: Other intestinal obstruction-SBO Presentation: 08/12 13:51 Chief complaint: Patient states: Abd pain with N./V since 4 am. Near syncope feeling ll1 today. Coronavirus screen: Client denies travel out of the [place] in the last 14 days. fatigue, nausea, vomiting. Client presents with at least one sign or symptom that may indicate coronavirus-19. Standard/surgical mask placed on the client. Ebola Screen: Patient denies travel to an Ebola-affected area in the 21 days before illness onset. Initial Sepsis Screen: Does the patient meet any 2 criteria? No. Patient's initial sepsis screen is negative. Does the patient have a suspected source of infection? Yes: Acute abdominal pain. Risk Assessment: Do you want to hurt yourself or someone else? Patient reports no desire to harm self or others. Onset of symptoms was August 12, 2020. 13:51 Method Of Arrival: Ambulatory ll1 13:51 Acuity: LEX 3 ll1 Historical: - Allergies: 13:50 Sulfa (Sulfonamide Antibiotics); ll1 - PMHx: 13:50 Atrial Fib; CHF; Hypertension; ll1 - PSHx: 13:50 heart bypass; shoulder, both knee sx; bilateral knee replacement; ll1 - Immunization history:: Flu vaccine is up to date. - Social history:: Smoking status: Patient denies any tobacco usage or history of. Patient/guardian denies using alcohol, street drugs, The patient lives alone, with family. - Family history:: not pertinent. Screenin:00 Abuse screen: Denies threats or abuse. Denies injuries from another. Nutritional jl7 screening: No deficits noted. Tuberculosis screening: No symptoms or risk factors identified. Fall Risk IV access (20 points). Total Carrion Fall Scale indicates No Risk (0-24 pts). Assessment: 14:15 General: Appears in no apparent distress. uncomfortable, ill, Behavior is calm, jl7 cooperative, appropriate for age. Pain: Complains of pain in epigastric area, right upper quadrant and right lower quadrant Pain currently is 8 out of 10 on a pain scale. Pain began 0430 Is intermittent. Neuro: Level of Consciousness is awake, alert, obeys commands, Oriented to person, place, time, situation. Cardiovascular: Patient's skin is warm and dry. Rhythm is atrial fibrillation With PVC's. Respiratory: Airway is patent Respiratory effort is even, unlabored, Respiratory pattern is regular, symmetrical, Denies shortness of breath. GI: Abdomen is round distended, Abdomen is tender to palpation in epigastric area, right upper quadrant, left upper quadrant and right lower quadrant Reports upper abdominal pain, nausea, vomiting. Derm: Skin is pink, warm \T\ dry. 15:00 Reassessment: Patient appears in no apparent distress at this time. Patient and/or jl7 family updated on plan of care and expected duration. Pain level reassessed. Patient is alert, oriented x 3, equal unlabored respirations, skin warm/dry/pink. Reports decreased pain and nausea at this time. 15:44 Reassessment: ERP at bedside discussing results and POC. 7 16:50 Reassessment: NG tube placed, pt denies discomfort. jl7 17:10 Reassessment: Dr. Britt at bedside discussing POC. 7 Vital Signs: 13:51 BP 104 / 62; Pulse 89; Resp 17; Temp 98.0; Pulse Ox 99% ; Weight 90.72 kg; Height 5 ft. ll1 6 in. (167.64 cm); Pain 8/10; 14:30 BP 100 / 61; Pulse 66; Resp 17; Pulse Ox 95% ; jl7 15:00 BP 136 / 97; Pulse 88; Resp 23; Pulse Ox 96% ; jl7 16:00 BP 134 / 99; Pulse 82; Resp 19; Pulse Ox 95% ; jl7 17:00 BP 113 / 77; Pulse 88; Resp 15; Pulse Ox 95% ; jl7 17:46 BP 119 / 65; Pulse 91; Resp 17; Pulse Ox 95% ; jl7 13:51 Body Mass Index 32.28 (90.72 kg, 167.64 cm) 1 ED Course: 13:38 Patient arrived in ED. mr 13:52 Triage completed. 1 13:52 Arm band placed on Patient placed in an exam room, on a stretcher. 1 13:54 Yao Sellers, RN is Primary Nurse. jl7 13:59 Felicia Pete MD is Attending Physician. ma2 14:00 Patient has correct armband on for positive identification. Placed in gown. Bed in low jl7 position. Call light in reach. Side rails up X2. dinkey engine mechanic on. Pulse ox on. NIBP on. 14:32 Inserted saline lock: 20 gauge in right antecubital area, using aseptic technique. 4 Blood collected. 14:32 Initial lab(s) drawn, by ED staff, sent to lab. jl7 15:22 CT Abd/Pelvis - IV Contrast Only In Process Unspecified. EDMS 15:42 Mathieu Sandy DO is Hospitalizing Provider. ma2 16:35 NGT: inserted 14 Fr. via right nare. verified placement of air over stomach, verified jl7 return of gastric contents, to intermittent suction. Returned gastric contents. Amount of gastric contents removed by suction 800ml. Patient tolerated well. 16:52 Inserted saline lock: 20 gauge in left forearm, using aseptic technique. [facility] 16:54 COVID swab sent to lab. jl7 18:11 No provider procedures requiring assistance completed. Patient admitted, IV remains in jl7 place. intact, No redness/swelling at site. Administered Medications: 14:48 Drug: Phenergan 12.5 mg Route: IVP; Site: right antecubital; jl7 15:20 Follow up: Response: No adverse reaction; Nausea is decreased jl7 14:48 Drug: NS 0.9% 1000 ml Route: IV; Rate: 1000 ml; Site: right antecubital; jl7 16:00 Follow up: Response: No adverse reaction; IV Status: Completed infusion; IV Intake: jl7 1000ml 14:55 Drug: Dilaudid (HYDROmorphone) 1 mg Route: IVP; Site: right antecubital; jl7 15:20 Follow up: Response: No adverse reaction; Pain is decreased jl7 14:57 Drug: Pepcid (famotidine) 20 mg Route: IVP; Site: right antecubital; jl7 17:46 Follow up: Response: No adverse reaction jl7 15:00 Drug: Rocephin (cefTRIAXone) 1 grams Route: IV; Rate: calculated rate; Site: right jl7 antecubital; 15:03 Follow up: Response: No adverse reaction; IV Status: Completed infusion jl7 18:10 Not Given (Patient Refused): Zofran (Ondansetron) 4 mg IVP once; over 2 minutes jl7 Intake: 16:00 IV: 1000ml; Total: 1000ml. jl7 Outcome: 15:42 Decision to Hospitalize by Provider. ma2 18:11 Admitted to Med/surg accompanied by tech, family with patient, via wheelchair, room [facility] 211, with chart, Report called to MICHELLE Butcher 18:11 Condition: stable 18:11 Discharge instructions given to patient, family, Instructed on the need for admit, Demonstrated understanding of instructions. 18:12 Patient left the ED. jl7 Signatures: Dispatcher [employer] EDNE Mary Roca Jahala RN RN jl7 Felicia Pete MD MD ky2 Gerry Underwood [facility] Adam Duron RN RN ll1 Corrections: (The following items were deleted from the chart) 17:26 16:30 Reassessment: NG tube placed, pt denies discomfort jl7 jl7
--- NOTE | 2020-08-12 15:43 | EDPHYS ---
Physician Documentation [facility] Name: Jayden Lopez Age: 89 yrs Sex: Male : 1930 Arrival Date: 08/12/2020 Time: 13:38 Bed 15 Private MD: ED Physician Felicia Pete HPI: 08/12 15:33 This 89 yrs old Male presents to ER via Ambulatory with complaints of ma2 Abdominal Pain, Vomiting. 15:33 The patient presents to the emergency department with nausea, vomiting, abdominal pain. ma2 Onset: The symptoms/episode began/occurred gradually, 1 day(s) ago. Associated signs and symptoms: Pertinent negatives: belching, diarrhea, fever, GI bleeding. Severity of symptoms: At their worst the symptoms were moderate in the emergency department the symptoms are unchanged. The patient has not experienced similar symptoms in the past. Historical: - Allergies: 13:50 Sulfa (Sulfonamide Antibiotics); ll1 - PMHx: 13:50 Atrial Fib; CHF; Hypertension; ll1 - PSHx: 13:50 heart bypass; shoulder, both knee sx; bilateral knee replacement; ll1 - Immunization history:: Flu vaccine is up to date. - Social history:: Smoking status: Patient denies any tobacco usage or history of. Patient/guardian denies using alcohol, street drugs, The patient lives alone, with family. - Family history:: not pertinent. ROS: 15:33 Constitutional: Negative for fever, chills, and weight loss, Eyes: Negative for injury, ma2 pain, redness, and discharge. 15:33 All other systems are negative. Exam: 15:33 Constitutional: This is a well developed, well nourished patient who is awake, alert, ma2 and in no acute distress. Head/Face: Normocephalic, atraumatic. Eyes: Pupils equal round and reactive to light, extra-ocular motions intact. Lids and lashes normal. Conjunctiva and sclera are non-icteric and not injected. Cornea within normal limits. Periorbital areas with no swelling, redness, or edema. ENT: Nares patent. No nasal discharge, no septal abnormalities noted. Tympanic membranes are normal and external auditory canals are clear. Oropharynx with no redness, swelling, or masses, exudates, or evidence of obstruction, uvula midline. Mucous membranes moist. Neck: Trachea midline, no thyromegaly or masses palpated, and no cervical lymphadenopathy. Supple, full range of motion without nuchal rigidity, or vertebral point tenderness. No Meningismus. Chest/axilla: Normal chest wall appearance and motion. Nontender with no deformity. No lesions are appreciated. Cardiovascular: Regular rate and rhythm with a normal S1 and S2. No gallops, murmurs, or rubs. Normal PMI, no JVD. No pulse deficits. Respiratory: Lungs have equal breath sounds bilaterally, clear to auscultation and percussion. No rales, rhonchi or wheezes noted. No increased work of breathing, no retractions or nasal flaring. Abdomen/GI: Soft, non-tender, with normal bowel sounds. No distension or tympany. No guarding or rebound. No evidence of tenderness throughout. Skin: Warm, dry with normal turgor. Normal color with no rashes, no lesions, and no evidence of cellulitis. MS/ Extremity: Pulses equal, no cyanosis. Neurovascular intact. Full, normal range of motion. Neuro: Awake and alert, GCS 15, oriented to person, place, time, and situation. Cranial nerves II-XII grossly intact. Motor strength 5/5 in all extremities. Sensory grossly intact. Cerebellar exam normal. Normal gait. Vital Signs: 13:51 BP 104 / 62; Pulse 89; Resp 17; Temp 98.0; Pulse Ox 99% ; Weight 90.72 kg; Height 5 ft. ll1 6 in. (167.64 cm); Pain 8/10; 14:30 BP 100 / 61; Pulse 66; Resp 17; Pulse Ox 95% ; jl7 15:00 BP 136 / 97; Pulse 88; Resp 23; Pulse Ox 96% ; jl7 16:00 BP 134 / 99; Pulse 82; Resp 19; Pulse Ox 95% ; jl7 17:00 BP 113 / 77; Pulse 88; Resp 15; Pulse Ox 95% ; jl7 17:46 BP 119 / 65; Pulse 91; Resp 17; Pulse Ox 95% ; jl7 13:51 Body Mass Index 32.28 (90.72 kg, 167.64 cm) ll1 MDM: 13:59 Patient medically screened. ma2 15:33 Differential diagnosis: gastritis, diverticulitis, viral gastroenteritis, ma2 gastroenteritis. 15:40 Data reviewed: vital signs, nurses notes. Counseling: I had a detailed discussion with [facility] the patient and/or guardian regarding: the historical points, exam findings, and any diagnostic results supporting the discharge/admit diagnosis, the presence of at least one elevated blood pressure reading (>120/80) during this emergency department visit, the need for further work-up and treatment in the hospital. Response to treatment: the patient's symptoms have markedly improved after treatment. ED course: discussed with dr. castillo and dr. núñez . 08/12 14:09 Order name: Basic Metabolic Panel [facility] 08/12 14:09 Order name: CBC with Diff [facility] 08/12 14:09 Order name: Hepatic Function [facility] 08/12 14:09 Order name: Lipase; Complete Time: 15:18 [facility] 08/12 14:10 Order name: Basic Metabolic Panel; Complete Time: 15:18 [facility] 08/12 14:10 Order name: CBC with Automated Diff; Complete Time: 15:07 [facility] 08/12 14:09 Order name: CT Abd/Pelvis - IV Contrast Only [facility] 08/12 14:10 Order name: Liver (Hepatic) Function; Complete Time: 15:18 [facility] 08/12 14:17 Order name: Troponin (emerg Dept Use Only) [facility] 08/12 14:17 Order name: Troponin (Emerg Dept Use Only); Complete Time: 15:36 [facility] 08/12 14:54 Order name: CREATININE WHOLE BLOOD; Complete Time: 15:06 [facility] 08/12 15:54 Order name: COVID-19 : Document "Date of Symptom Onset" if Symptomatic. 08/12 15:54 Order name: CORONAVIRUS [facility] 08/12 16:54 Order name: CXR XRAY 08/12 14:09 Order name: IV Saline Lock; Complete Time: 14:32 [facility] 08/12 14:09 Order name: NPO; Complete Time: 14:58 [facility] 08/12 14:17 Order name: EKG - Nurse/Tech; Complete Time: 14:46 [facility] 08/12 15:37 Order name: Nasogastric Tube; Complete Time: 16:51 [facility] 08/12 15:39 Order name: NPO; Complete Time: 16:51 [facility] 08/12 17:52 Order name: RAD; Complete Time: 18:15 EDMS Administered Medications: 14:48 Drug: Phenergan 12.5 mg Route: IVP; Site: right antecubital; jl7 15:20 Follow up: Response: No adverse reaction; Nausea is decreased jl7 14:48 Drug: NS 0.9% 1000 ml Route: IV; Rate: 1000 ml; Site: right antecubital; jl7 16:00 Follow up: Response: No adverse reaction; IV Status: Completed infusion; IV Intake: jl7 1000ml 14:55 Drug: Dilaudid (HYDROmorphone) 1 mg Route: IVP; Site: right antecubital; jl7 15:20 Follow up: Response: No adverse reaction; Pain is decreased jl7 14:57 Drug: Pepcid (famotidine) 20 mg Route: IVP; Site: right antecubital; jl7 17:46 Follow up: Response: No adverse reaction jl7 15:00 Drug: Rocephin (cefTRIAXone) 1 grams Route: IV; Rate: calculated rate; Site: right jl7 antecubital; 15:03 Follow up: Response: No adverse reaction; IV Status: Completed infusion jl7 18:10 Not Given (Patient Refused): Zofran (Ondansetron) 4 mg IVP once; over 2 minutes jl7 Disposition: 08/12/20 15:42 Hospitalization ordered by Mathieu Núñez for Inpatient Admission. Preliminary diagnosis is Other intestinal obstruction - SBO. - Bed requested for Telemetry/MedSurg (Inpatient). - Status is Inpatient Admission. jl7 - Condition is Stable. - Problem is new. - Symptoms are unchanged. Signatures: Dispatcher [employer] EDMS Negin De La Garza Jahala RN RN jl7 Felicia Pete MD MD ma2 Adam Duron RN RN ll1 Corrections: (The following items were deleted from the chart) 17:41 15:42 Hospitalization Ordered by Mathieu Núñez DO for Inpatient Admission. Preliminary bd diagnosis is Other intestinal obstruction - SBO. Bed requested for Telemetry/MedSurg (Inpatient). Status is Inpatient Admission. Condition is Stable. Problem is new. Symptoms are unchanged. [facility] 18:12 17:41 08/12/2020 15:42 Hospitalization Ordered by Mathieu Prezas DO for Inpatient jl7 Admission. Preliminary diagnosis is Other intestinal obstruction - SBO. Bed requested for Telemetry/MedSurg (Inpatient). Status is Inpatient Admission. Condition is Stable. Problem is new. Symptoms are unchanged. bd
--- NOTE | 2020-08-12 16:20 | P.HP ---
Certification for Inpatient Patient admitted to: Observation With expected LOS: <2 Midnights Practitioner: I am a practitioner with admitting privileges, knowledge of patient current condition, hospital course, and medical plan of care. Services: Services provided to patient in accordance with Admission requirements found in Title 42 Section 412.3 of the Code of Federal Regulations Patient History Date of Service: 08/12/20 Primary Care Provider: Dr. Scott ([place]) Reason for admission: Nausea, vomiting History of Present Illness: 89-year-old male with history of atrial fibrillation on chronic anticoagulation therapy, hypertension, hyperlipidemia, prior CABG. Patient presents with increased nausea and vomiting that started at 4 AM this morning. It was associated with diffuse abdominal pain. He tried to keep liquids down but was not able to. Patient felt very weak and tired. At one point he felt like he was going to faint. He did have a small bowel movement earlier. Pain continued to increase. Nausea persisted. He came to the ER for further evaluation. Patient denied any chest pain, shortness of breath. In the ER patient was evaluated. White count 14, hemoglobin 14.7. Platelet count 415. Sodium 133, potassium 4.0. BUN of 22, creatinine 0.92 with his GFR 77 and glucose of 151. Troponin unremarkable. Lipase unremarkable. CT scan revealed small bowel obstruction. Site of obstruction is within the right upper pelvis region. Patient was given pain medication and medication for nausea. Patient stable. Patient admitted for observation. I saw the patient in ER, patient appeared stable. Allergies Sulfa (Sulfonamide Antibiotics) Allergy (Intermediate, Verified 12/04/12 13:11) Shortness of breath Home medications list reviewed: Yes Home Medications: Atorvastatin Calcium [Lipitor] 40 mg PO BEDTIME 01/06/19 Dabigatran Etexilate Mesylate [Pradaxa*] 150 mg PO BID 01/06/19 Esomeprazole Mag Trihydrate [Nexium] 40 mg PO DAILY 01/06/19 Furosemide [Lasix*] 40 mg PO DAILY 01/06/19 Gabapentin [Neurontin*] 600 mg PO TID 01/06/19 Iron,Carb/Vit C/Vit B12/Folic [Iron 100 Plus Tablet] 65 mg PO DAILY 01/06/19 Oxybutynin Chloride [Ditropan*] 5 mg PO BID 01/06/19 Albuterol Sulfate [Proair Hfa] 2 puff IH SEECOM PRN 01/07/19 Fluticasone Propionate [Flovent Diskus] 1 - 2 spray IH DAILY PRN 01/07/19 Fluticasone/Salmeterol [Advair Hfa 230-21 Mcg Inhaler] 2 puff IH BID PRN 01/07/19 Hydrocodone/Acetaminophen [Hydrocodone-Acetamin 10-325 mg] 1 tab PO Q4H PRN 01/07/19 Multivit-Min/FA/Lycopen/Lutein [Centrum Silver Tablet] 1 tab PO DAILY 01/07/19 Benzonatate [Tessalon Perle*] 200 mg PO TID PRN #60 cap 07/23/20 Levalbuterol HCl [Xopenex] 1.25 mg NEB Q8HR PRN #60 amp 07/23/20 Losartan Potassium [Cozaar*] 0.5 tab PO BID #30 07/23/20 Metoprolol Tartrate [Lopressor*] 50 mg PO BID #60 tab 07/23/20 predniSONE [Prednisone] 20 mg PO DAILY #3 tablet 07/23/20 - Past Medical/Surgical History Diabetic: No -: Atrial fibrillation on chronic anticoagulation therapy -: CAD with prior CABG x3 vessel -: Arthritis -: Hypertension -: COPD -: Bilateral knee replacement -: CABG x3 vessel -: Left rotator cuff injury repair -: Right inguinal hernia repair Psychosocial/ Personal History: Patient is - Family History Father -: Heart disease Mother -: Heart disease - Social History Smoking Status: Never smoker Alcohol use: No CD- Drugs: No Caffeine use: Yes Place of Residence: Home Review of Systems General: As per HPI Eyes: Unremarkable ENT: Unremarkable Respiratory: Unremarkable Cardiovascular: Unremarkable Gastrointestinal: Nausea, Vomiting, Abdominal Pain, As per HPI Genitourinary: Unremarkable Musculoskeletal: Unremarkable Integumentary: Unremarkable Neurological: Unremarkable Lymphatics: Unremarkable Physical Examination - Physical Exam General: Alert, In no apparent distress, Oriented x3, Cooperative HEENT: Atraumatic, Normocephalic, Mucous membr. moist/pink Neck: Supple Respiratory: Clear to auscultation bilaterally, Normal air movement Cardiovascular: Irregular heart rate/rhythm (A. fib rate controlled) Gastrointestinal: Normal bowel sounds, Soft and benign, Non-distended, Tenderness (Mild tenderness to the right lower quadrant, no significant distention noted.) Musculoskeletal: No erythema, No tenderness, No warmth Integumentary: No tenderness/swelling, No erythema, No warmth, No cyanosis Neurological: Normal speech, Normal strength at 5/5 x4 extr, Normal tone, Normal affect - Studies Laboratory Data (last 24 hrs) 08/12/20 14:27: WBC 14.40 H, Hgb 14.7, Hct 43.0, Plt Count 415 H 08/12/20 14:27: Sodium 133 L, Potassium 4.0, BUN 22 H, Creatinine 0.92, Glucose 151 H, Total Bilirubin 1.0, AST 26, ALT 44, Alkaline Phosphatase 216 H, Lipase 55 L Assessment and Plan - Plan Impression: Nausea, vomiting, right lower quadrant abdominal pain secondary to small bowel obstruction Atrial fibrillation on chronic anticoagulation therapy Hypertension Hyperlipidemia CAD with prior CABG Plan: Nausea, vomiting, right lower quadrant abdominal pain secondary to small bowel obstruction: Patient will be admitted for further evaluation and treatment. We will start IV fluids. We will also initiate IV antibiotic therapy. Patient had bowel movement earlier. Pain and nausea improved. Patient with history of right inguinal hernia repair. We will continue to monitor the patient closely with serial exams. If with increased nausea and vomiting or abdominal distention will consider NG tube placement. Surgery has been consulted. Await recommendation. Anticipate improvement over the next 24 hours.. Atrial fibrillation on chronic anticoagulation therapy: We will provide SCD. Hold Pradaxa in the event that patient may require surgical intervention. Will provide IV metoprolol. Obtain home medication. Hypertension: We will provide IV medication at this time. Hyperlipidemia: Hold medication. CAD with prior CABG: Stable. Discharge Plan: Home Plan to discharge in: 48 Hours - Advance Directives Does patient have a Living Will: No Does patient have a Durable POA for Healthcare: Yes - Code Status/Comfort Care Code Status Assessed: Yes (Patient is full code) Time Spent Managing Pts Care (In Minutes): 55
[2020-08-12] MEDS ORDERED: LIDOCAINE VISCOUS 2% SOLN 15 ML UDC ONE (16:33)
[2020-08-12] MEDS: NA CHLORIDE 0.9% 1,000 ML IV SCH ×2 (17:48→21:30)
[2020-08-12] MEDS ORDERED: SODIUM CHLORIDE 0.9% 10ML INJ IV PRN (17:48)
[2020-08-12] MEDS ORDERED: ACETAMINOPHEN 650MG/RECT SUPP PR PRN (17:48)
[2020-08-12] MEDS ORDERED: ACETAMINOPHEN 500 MG TAB PO PRN (17:48)
[2020-08-12] MEDS ORDERED: METOPROLOL TARTRATE 5 MG/5 ML INJ IV PRN (17:48)
[2020-08-12] MEDS ORDERED: MORPHINE 2 MG/ML SYR IV PRN (17:48)
[2020-08-12] MEDS ORDERED: ONDANSETRON 4 MG/2 ML VIAL IV PRN ×2 (17:48→20:54)
--- NOTE | 2020-08-12 17:51 | RAD REPORT ---
EXAM DESCRIPTION: Krissy Single View08/12/2020 5:25 pm CLINICAL HISTORY: Device placement NG tube placement IMPRESSION: A NG tube is visualized within the proximal and mid chest. The distal aspect of the tube is not well visualized. However, it appears to overlie the right mainstem bronchus. It could either lie within the bronchus or the overlying thoracic esophagus. It is recommended that the tube be withdrawn and reinserted.
[2020-08-12] MEDS ORDERED: SUCCINYLCHOLINE 20 MG/ML (10 ML) IV ONE (18:10)
[2020-08-12] MEDS ORDERED: ROCURONIUM 50 MG/5 ML VIAL IV ONE (18:14)
[2020-08-12] MEDS ORDERED: propofoL 200 MG/20 ML VIAL IV ONE (18:14)
[2020-08-12] MEDS ORDERED: LIDOCAINE 2% MPF 5 ML VIAL ONE (18:14)
[2020-08-12] MEDS ORDERED: FENTANYL CITR 100 MCG/2 ML ONE (18:15)
[2020-08-12] MEDS ORDERED: Phenylephrine HCl 10 MG/ML 1 ML VIAL ONE (18:15)
--- NOTE | 2020-08-12 18:17 | P.CNS ---
Date of Consult: 08/12/20 PC: I was asked to see this 89-year-old male regards to sudden onset of acute abdominal pain and possible small-bowel obstruction. HPC: Patient apparently ate some cabbage soup recently. Since that time has had abdominal distension. Minimal bowel movements. Today had excruciating abdominal pain hard cramping been nearly constant a blackout. He came to the emergency room for evaluation treatment her. PMH: Heart attack in the past. He is in cardiac rehab 3 times a week. PSHx: Previous right inguinal hernia repair, had 1 episode in the past he says the of bowel obstruction SOC: Allergic to sulfa, medications reviewed SYS REVIEW: States he has otherwise is in relatively good health. Was recently in the hospital for pneumonia, but it finally cleared. Some prostate symptomatology. O/E awake alert vital signs are stable relatively comfortable at the moment HEENT: NG tube in place Chest: Chest movement equal bilaterally ABD: Abdomen is still distended despite having had a considerable amount of effluent out through the nasogastric tube. tense and tympanic. No real guarding or rebound however. LOCO: Intact DATA: CT scan suggests small bowel obstruction right lower quadrant IMPRESSION: This patient is had sudden onset of acute abdominal pain. The CT scan suggests a high-grade small-bowel obstruction in the right lower quadrant. He has been treated with nasogastric tube and IV fluids. However I feel that his best result would be obtained by going for a laparoscopic possible open relief of this small-bowel obstruction. PLAN: I have discussed surgical options with this patient. We talked about conservative therapy versus surgery at this time. He is strongly in favor of surgery at the moment as the pain while it has subsided is still there. I think that this obstruction, which might be cleared over a series of days, in view of his recent hospitalizations with pneumonias, and round of antibiotics, would lessen his chances of successful recovery. A laparoscopic or even open resolution of his obstruction, with great elicits chances of him having to go through this process again in the near future. The risks of the procedure were described. The the risks of bleeding, infection, injury to his 2 young blood vessels and surrounding structures were outlined. The possibility of need for further surgeries and procedures was described. He understands and wants us to proceed.
[2020-08-12] MEDS: PIPER/TAZO/NS 3.375gm 3.375 GM/100 ML BAG IVPB SCH (18:51)
[2020-08-12] MEDS ORDERED: Ringers Lactate 1,000 ML IV ONE (19:00)
[2020-08-12] MEDS ORDERED: dexAMETHasone 10 MG/ML VIAL ONE (19:51)
[2020-08-12] MEDS ORDERED: KETOROLAC 30 MG/ML INJ ONE (19:51)
[2020-08-12] MEDS ORDERED: GLYCOPYRROLATE 0.2 MG/ML SYR ONE ×2 (20:11→20:33)
[2020-08-12] MEDS ORDERED: NEOSTIGMINE 1 MG/ML -5 ML ONE (20:33)
[2020-08-12] MEDS ORDERED: MORPHINE 4 MG/ML SYR IV PRN (20:54)
--- NOTE | 2020-08-12 21:01 | P.OP ---
Preoperative diagnosis: Small-bowel obstruction Postoperative diagnosis: The same Primary procedure: Laparoscopic lyses of adhesions Other procedure(s): Sarahi block Anesthesia: General Estimated blood loss: Less than 10 cc Specimen: 1 piece of omentum, not sent Operative Technique: The patient brought the operating room placed supine on the table. After the induction of adequate general endotracheal anesthesia, there the abdomen was prepped with a DuraPrep solution, and after the insertion of a [place]ail catheter, he was draped in usual aseptic manner. A left upper quadrant skin incision was made. This brought down through the skin and subcutaneous tissue. The Visiport was now used to carefully enter the peritoneal cavity and created pneumoperitoneum to approximately 12 mm of me rcury. Under direct vision another 5 mm trocar was placed the left lower quadrant. We were now able to visualize the anterior abdominal wall. We could see that there were adhesions of the small bowel that were adherent to the suture line above and below the umbilicus. There was also an omentum attached to the upper portion of the anterior abdominal wall as well. Turned our attention to the right lower quadrant, we could see obvious and T small bowel. This was traced back to the area of obstruction. We could see any acute transition point that was on the distal limb of the loops of small bowel that were stuck to the area around the emboli kiss. There was a very defined transition point, however there was not any fixed adhesive tissue. Turning our attention to the anterior abdominal wall, we were able to gently dissect the small bowel off of the peritoneum around the suture line. This tedious dissection allowed us to free up approximately a foot and a half of small intestine that had been adherent in this area. It was also noted and this bowel had a rotation to at most likely contributing to the small-bowel obstruction. The bowel was finally fully released. Attention was turned towards the omentum. It was also taken down from the anterior abdominal wall. We were now able to run the small bowel from just distal to the ligament of Treitz. We could see the dilated small bowel ex tending all the way down to oral once again our transition area which during the course of our procedure had started to dilate it up and showed obvious peristalsis. At this point the bowel was once again inspected. We could see that there were adhesion attachments and peritoneum over the bowel were had been released but the serosal surface appear to be intact. The omentum was now placed back into its relatively normal anatomical position over the small bowel. The anterior abdominal wall was now Sarahi blocked with 0.25% Marcaine on both left and right and sides. I 5 mm camera was now placed into the left lower quadrant. This allowed us to directly visualize the 10 mm trocar site which we approximated using the Endo Close an absorbable suture. (it should also be mentioned that an additional 5 mm trocar was placed between the 1 in the left lower quadrant and the 1 in the left upper quadrant to allow for fixation stabilization and an operative port to help with our dissection.) at this point the pneumoperitoneum was collapsed, the sutures tied, and kishan applied to the skin. At the end of the procedure he was in a stable condition when sent to the recovery room. Needle sponge instrument count were reported as correct. No drains were placed.
[2020-08-12 21:53] VITALS: BMI 32.3
[2020-08-12] MEDS: HYDROCODONE/APAP 7.5/325 MG TAB PO PRN (23:58)
[2020-08-13] MEDS ORDERED: HYDROCODONE/APAP 7.5/325 MG TAB ONE (00:11)
[2020-08-13] MEDS: PIPER/TAZO/NS 3.375gm 3.375 GM/100 ML BAG IVPB SCH ×3 (01:00→16:10)
[2020-08-13] MEDS: ONDANSETRON 4 MG/2 ML VIAL IV PRN ×2 (05:45→11:25)
[2020-08-13] MEDS: HYDROCODONE/APAP 7.5/325 MG TAB PO PRN (05:45)
[2020-08-13 05:53] LABS: Absolute Lymphocytes (CBC) 1.4 K/uL (0.7-4.9); Basophils % 0.1 % (0-1.3); Hematocrit 39.6 % (39.6-49.0); MPV 7.2 fL (7.6-11.3); RBC Red Blood Cell Count 4.04 M/uL (4.33-5.43)
[2020-08-13 06:10] LABS: Magnesium 2.1 mg/dL (1.8-2.4); Potassium 4.4 mmol/L (3.5-5.1)
[2020-08-13] MEDS: PANTOPRAZOLE 40 MG INJ IVP SCH (08:21)
[2020-08-13 08:44] LABS: Blood Morphology Comment NOT SEEN (NOT SEEN); Platelet Estimate ADEQ; White Blood Cell Scan OK (OK)
[2020-08-13] MEDS ORDERED: MINERAL OIL 30 ML UCUP PO ONE ×2 (08:53→16:03)
[2020-08-13 09:02] LABS: Urine Appearance CLEAR (Clear); Urine Blood TRACE (Negative); Urine Color DK YELLOW (Yellow); Urine Glucose NEGATIVE (Negative); Urine Protein TRACE (Negative); Urine Specific Gravity >=1.030 (1.005-1.030); Urine Urobilinogen 0.2 mg/dL (0.2-1.0); Urine pH 5.5 (5.0-7.0)
[2020-08-13 09:05] LABS: Urine Bilirubin NEGATIVE (Negative)
[2020-08-13 09:06] LABS: Urine Microscopic Reflex ORDER UMIC
[2020-08-13 09:15] LABS: Urine Bacteria <20 /HPF (NONE SEEN)
[2020-08-13] MEDS ORDERED: FLUTICASONE IH PRN (12:17)
[2020-08-13] MEDS ORDERED: SALMETEROL IH PRN (12:17)
[2020-08-13] MEDS ORDERED: [UNRECOGNIZED DRUG - OTHER] IH PRN (12:17)
[2020-08-13] MEDS ORDERED: ALBUTEROL INHALER 60 PUFF/8 GM IH PRN (12:17)
--- NOTE | 2020-08-13 12:25 | P.PN ---
Subjective Date of Service: 08/13/20 Primary Care Provider: Dr. Scott ([place]) Chief Complaint: Nausea, vomiting Subjective: Improving, Doing well Physical Examination - Vital Signs Temperature: 98.1 F Blood Pressure: 119/63 Pulse: 86 Respirations: 17 Pulse Ox (%): 93 - Studies Laboratory Data (last 24 hrs) 08/12/20 14:27: WBC 14.40 H, Hgb 14.7, Hct 43.0, Plt Count 415 H 08/12/20 14:27: Sodium 133 L, Potassium 4.0, BUN 22 H, Creatinine 0.92, Glucose 151 H, Total Bilirubin 1.0, AST 26, ALT 44, Alkaline Phosphatase 216 H, Lipase 55 L Assessment & Plan Discharge Plan: Home Plan to discharge in: 24 Hours Physician Review Additional Text: Physical exam: Patient alert, cooperative. Patient doing well postoperatively. Heart: A. fib rate controlled Lungs: Clear to auscultation Abdomen: Postop changes noted. No significant abdominal pain. Soft nontender Extremities: Good range of motion. No focal deficits. Impression: Nausea, vomiting, right lower quadrant abdominal pain secondary to small bowel obstruction status post lysis of adhesion Atrial fibrillation on chronic anticoagulation therapy Hypertension Hyperlipidemia CAD with prior CABG COPD Chronic pain Plan: Nausea, vomiting, right lower quadrant abdominal pain secondary to small bowel obstruction status post lysis of adhesion: Patient had surgery yesterday. Lysis of adhesion performed. She is doing well postoperatively. Currently on clear liquid diet to be advanced. Will discontinue IV fluids. Restart home medications. Encourage ambulation. Will provide incentive spirometer. Will discuss with surgery about plan of care. Likely discharge in the next 24 hours. Atrial fibrillation on chronic anticoagulation therapy: Restart home medication including Pradaxa. Hypertension: Home indications restarted. Parameters in place. Hyperlipidemia: Continue home medication CAD with prior CABG: Continue home medication. COPD: Continue home medication Chronic pain: Continue home medication GERD: Continue home medication Time Spent Managing Pts Care (In Minutes): 55
[2020-08-13] MEDS: GABAPENTIN 400 MG CAP PO SCH ×2 (13:36→20:27)
--- NOTE | 2020-08-13 15:59 | P.PN ---
Date of Service: 08/13/20 S: Patient feels much better today, his pain has resolved. He feels strong, has been up ambulating, still no bowel movements and is passing gas. Surgical plane is minimal and tolerable O: Vital signs are stable, abdomen soft A: Stable status laparoscopy and with lyses of adhesions. PE: Advanced diet, encourage patient ambulate, abdominal binder, anticipate discharge in a.m.. He will see me in my office next week. He has been advised on diet over the next few days, using his incentive spirometer, showering and wound care. Should any questions or problems, he knows to go to the emergency room, or contact me. I will be seeing him next Tuesday in my office.
--- NOTE | 2020-08-13 17:02 | EKG ---
Test Date: 2020-08-12 Test Time: 14:40:38 Outbound Telemarketer: KAREL MEASUREMENT RESULTS: Intervals: Rate: 82 [place]: 176 QRSD: 88 QT: 390 QTc: 455 [place]: P: 32 [place]: 176 QRS: -44 T: 13 INTERPRETIVE STATEMENTS: Sinus rhythm with marked sinus arrhythmia with frequent premature ventricular complexes Left axis deviation T wave abnormality, consider lateral ischemia Abnormal ECG Compared to ECG 07/21/2020 08:19:53 Left-axis deviation now present T-wave abnormality now present Possible ischemia now present Atrial fibrillation no longer present Myocardial infarct finding no longer present Electronically Signed On 08-13-20 17:00:38 CDT by Richard Sierra
[2020-08-13] MEDS: DABIGATRAN 150 MG CAP PO SCH (20:27)
[2020-08-13] MEDS: DOCUSATE NA 100 MG CAP PO SCH (20:28)
[2020-08-13] MEDS: OXYBUTYNIN CHLORIDE 5 MG TAB PO SCH (20:28)
[2020-08-13] MEDS ORDERED: LORATADINE 10 MG TAB PO SCH (21:00)
[2020-08-13] MEDS ORDERED: ATORVASTATIN 40 MG TAB PO SCH (21:00)
[2020-08-14] MEDS: PIPER/TAZO/NS 3.375gm 3.375 GM/100 ML BAG IVPB SCH ×2 (01:00→08:10)
[2020-08-14 05:56] LABS: Absolute Lymphocytes (CBC) 0.9 K/uL (0.7-4.9); Basophils % 0.1 % (0-1.3); Hematocrit 36.5 % (39.6-49.0); Lymphocytes % 7.8 % (15.3-44.8); MPV 7.2 fL (7.6-11.3); RBC Red Blood Cell Count 3.73 M/uL (4.33-5.43)
[2020-08-14 06:09] LABS: BUN Blood Urea Nitrogen 22 mg/dL (7-18); Bicarbonate 29 mmol/L (21-32); Glucose Level 123 mg/dL (74-106); Magnesium 2.2 mg/dL (1.8-2.4); Potassium 3.8 mmol/L (3.5-5.1); Sodium Level 138 mmol/L (136-145)
[2020-08-14] MEDS: PANTOPRAZOLE 40 MG INJ IVP SCH (08:04)
[2020-08-14] MEDS: DABIGATRAN 150 MG CAP PO SCH (08:04)
[2020-08-14] MEDS: OXYBUTYNIN CHLORIDE 5 MG TAB PO SCH (08:04)
[2020-08-14] MEDS: DOCUSATE NA 100 MG CAP PO SCH (08:04)
[2020-08-14] MEDS: GABAPENTIN 400 MG CAP PO SCH (08:04)
--- NOTE | 2020-08-14 08:13 | P.DS ---
Admission Date: 08/13/20 Discharge Date: 08/14/20 Primary Care Provider: Dr. Scott ([place]) Disposition: ROUTINE DISCHARGE Discharge Condition: GOOD Reason for Admission: Nausea, vomiting Consultations: Surgery-Dr. Britt Procedures: COVID: Negative CT scan: EXAM DESCRIPTION: CT - Abdomen Pelvis W Contrast - 08/12/2020 3:22 pm CLINICAL HISTORY: Abdominal pain COMPARISON: 2018 TECHNIQUE: Computed axial tomography of the abdomen pelvis was obtained. 100 cc Isovue-300 was administered intravenously. Oral contrast was not requested which limits evaluation of bowel. All CT scans are performed using dose optimization technique as appropriate and may include automated exposure control or mA/KV adjustment according to patient size. FINDINGS: The liver, spleen, pancreas, adrenal and kidneys appear unremarkable. The stomach and duodenum are dilated. There is moderate dilatation of jejunum and proximal ileum. The remainder of the ileum is decompressed. Transition point anterior upper right pelvis No free air. Postsurgical changes of a left inguinal hernia repair IMPRESSION: High-grade small bowel obstruction. The site of obstruction is within anterior right upper pelvis perhaps by an adhesion Surgery: Lysis of adhesions CXR: FINDINGS: Mild improvement in the bilateral pulmonary opacities. Heart is borderline enlarged. Postsurgical changes involve the chest IMPRESSION: Mild improvement in bilateral pulmonary opacities probably pneumonia Medical Problem List: Nausea, vomiting, right lower quadrant abdominal pain secondary to small bowel obstruction status post lysis of adhesion Pneumonia, bilateral Atrial fibrillation on chronic anticoagulation therapy Hypertension Hyperlipidemia CAD with prior CABG, chronic diastolic CHF COPD GERD Chronic pain Brief History of Present Illness: 89-year-old male with history of atrial fibrillation on chronic anticoagulation therapy, hypertension, hyperlipidemia, prior CABG. Patient presents with increased nausea and vomiting that started at 4 AM this morning. It was associated with diffuse abdominal pain. He tried to keep liquids down but was not able to. Patient felt very weak and tired. At one point he felt like he was going to faint. He did have a small bowel movement earlier. Pain continued to increase. Nausea persisted. He came to the ER for further evaluation. Patient denied any chest pain, shortness of breath. In the ER patient was evaluated. White count 14, hemoglobin 14.7. Platelet count 415. Sodium 133, potassium 4.0. BUN of 22, creatinine 0.92 with his GFR 77 and glucose of 151. Troponin unremarkable. Lipase unremarkable. CT scan revealed small bowel obstruction. Site of obstruction is within the right upper pelvis region. Patient was given pain medication and medication for nausea. Patient stable. Patient admitted for observation. I saw the patient in ER, patient appeared stable. Hospital Course: Patient presented with nausea, vomiting and right lower quadrant abdominal pain. This was secondary to small bowel obstruction. Patient was seen and evaluated by surgery. Surgical intervention was required. Lysis of adhesion was performed. Patient tolerated procedure well. Patient has done well postoperatively. Patient able to take normal intake. Patient seen and evaluated by surgery. No further intervention required. Passage of stool noted. At discharge patient will follow up with surgery within 1 week. No heavy lifting, pushing or pulling. Continue with incentive spirometer. There was some suspicion of pneumonia. Patient was started on IV antibiotic therapy. Repeat chest x-ray shows improvement. Patient did not have any fever. No respiratory issues were noted. Patient on room air saturation. At discharge patient will continue with Augmentin 500 mg twice daily for 7 days. Recommend recheck chest x-ray in 2 to 4 weeks to monitor resolution. Recommend to continue with incentive spirometer. Patient with atrial fibrillation on chronic anticoagulation therapy. At discharge patient will continue with his current medication of Pradaxa 150 mg 1 pill twice daily. Patient with hypertension. At discharge patient will continue with his current medication of losartan 50 mg daily. Patient with hyperlipidemia. At discharge patient will continue with Lipitor 40 mg daily. Patient with CAD and prior CABG with chronic CHF likely diastolic. At discharge he will continue with his current medication of Lasix 40 mg daily. Recommend follow-up with cardiology as directed. Patient with GERD. At discharge he will continue with Nexium daily. Patient with chronic pain. At discharge patient will continue with his pain medication as directed. Patient takes gabapentin and hydrocodone. Patient with underlying COPD. At discharge patient will continue with Advair and albuterol as directed. Vital Signs/Physical Exam: Temp Pulse Resp BP Pulse Ox 97.1 F 92 H 17 102/64 96 08/14/20 04:00 08/14/20 08:11 08/14/20 04:00 08/14/20 08:11 08/14/20 04:00 General: Alert, In no apparent distress, Oriented x3, Cooperative HEENT: Atraumatic Neck: Supple Respiratory: Clear to auscultation bilaterally, Normal air movement Cardiovascular: Irregular heart rate/rhythm (Atrial fibrillation rate controlled) Gastrointestinal: Normal bowel sounds, No masses, No rebound, No guarding, Other (Postop changes noted. No significant abdominal pain.) Integumentary: No tenderness/swelling Neurological: Normal speech, Normal strength at 5/5 x4 extr, Normal tone, Normal affect Laboratory Data at Discharge: WBC 11.60 K/uL (4.3-10.9) H D 08/14/20 05:32 Hgb 12.0 g/dL (13.6-17.9) L 08/14/20 05:32 Hct 36.5 % (39.6-49.0) L 08/14/20 05:32 Plt Count 299 K/uL (152-406) 08/14/20 05:32 Sodium 138 mmol/L (136-145) 08/14/20 05:32 Potassium 3.8 mmol/L (3.5-5.1) 08/14/20 05:32 BUN 22 mg/dL (7-18) H 08/14/20 05:32 Creatinine 0.78 mg/dL (0.55-1.3) 08/14/20 05:32 Glucose 123 mg/dL (74-106) H 08/14/20 05:32 Magnesium 2.2 mg/dL (1.8-2.4) 08/14/20 05:32 Total Bilirubin 1.0 mg/dL (0.2-1.0) 08/12/20 14:27 AST 26 U/L (15-37) 08/12/20 14:27 ALT 44 U/L (12-78) 08/12/20 14:27 Alkaline Phosphatase 216 U/L (45-117) H 08/12/20 14:27 Lipase 55 U/L (73-393) L 08/12/20 14:27 Home Medications: Atorvastatin Calcium [Lipitor] 40 mg PO BEDTIME 01/06/19 Dabigatran Etexilate Mesylate [Pradaxa*] 150 mg PO BID 01/06/19 Esomeprazole Mag Trihydrate [Nexium] 40 mg PO DAILY 01/06/19 Furosemide [Lasix*] 40 mg PO DAILY 01/06/19 Iron,Carb/Vit C/Vit B12/Folic [Iron 100 Plus Tablet] 65 mg PO DAILY 01/06/19 Oxybutynin Chloride [Ditropan*] 5 mg PO BID 01/06/19 Albuterol Sulfate [Proair Hfa] 2 puff IH SEECOM PRN 01/07/19 Fluticasone Propionate [Flovent Diskus] 1 - 2 spray IH DAILY PRN 01/07/19 Fluticasone/Salmeterol [Advair Hfa 230-21 Mcg Inhaler] 2 puff IH BID PRN 01/07/19 Hydrocodone/Acetaminophen [Hydrocodone-Acetamin 10-325 mg] 1 tab PO Q4H PRN 01/07/19 Multivit-Min/FA/Lycopen/Lutein [Centrum Silver Tablet] 1 tab PO DAILY 01/07/19 Docusate Sodium [Stool Softener] 1 tab PO BID 08/13/20 Gabapentin [Neurontin*] 1 cap PO TID 08/13/20 Loratadine [Claritin*] 1 tab PO BEDTIME 08/13/20 Losartan Potassium [Cozaar*] 1 tab PO DAILY 08/13/20 Amox/Clavulanate [Augmentin 500-125 mg Tab] 500 mg PO BID #14 tab 08/14/20 New Medications: Amox/Clavulanate [Augmentin 500-125 mg Tab] 500 mg PO BID #14 tab Physician Discharge Instructions: Patient presented with nausea, vomiting and right lower quadrant abdominal pain. This was secondary to small bowel obstruction. Patient was seen and evaluated by surgery. Surgical intervention was required. Lysis of adhesion was performed. Patient tolerated procedure well. Patient has done well postoperatively. Patient able to take normal intake. Patient seen and evaluated by surgery. No further intervention required. Passage of stool noted. At discharge patient will follow up with surgery within 1 week. No heavy lifting, pushing or pulling. Continue with incentive spirometer. There was some suspicion of pneumonia. Patient was started on IV antibiotic therapy. Repeat chest x-ray shows improvement. Patient did not have any fever. No respiratory issues were noted. Patient on room air saturation. At discharge patient will continue with Augmentin 500 mg twice daily for 7 days. Recommend recheck chest x-ray in 2 to 4 weeks to monitor resolution. Recommend to continue with incentive spirometer. Patient with atrial fibrillation on chronic anticoagulation therapy. At discharge patient will continue with his current medication of Pradaxa 150 mg 1 pill twice daily. Patient with hypertension. At discharge patient will continue with his current medication of losartan 50 mg daily. Patient with hyperlipidemia. At discharge patient will continue with Lipitor 40 mg daily. Patient with CAD and prior CABG with chronic CHF likely diastolic. At discharge he will continue with his current medication of Lasix 40 mg daily. Recommend follow-up with cardiology as directed. Patient with GERD. At discharge he will continue with Nexium daily. Patient with chronic pain. At discharge patient will continue with his pain medication as directed. Patient takes gabapentin and hydrocodone. Patient with underlying COPD. At discharge patient will continue with Advair and albuterol as directed. Diet: AHA Activity: No lifting more than 10 lbs Followup: LATRELL SAMS [Primary Care Provider] - Time spent managing pt's care (in minutes): 55
[2020-08-14] MEDS ORDERED: FUROSEMIDE 40 MG TABLET PO SCH (09:00)
[2020-08-14] MEDS ORDERED: LOSARTAN POTASSIUM 50 MG TABLET PO SCH ×2 (09:00)
[2020-08-14] MEDS ORDERED: HOME MED 1 EA UNK (Esomeprazole Mag Trihydrate [Nexium] 40 MG Capsule.Dr) PO SCH (09:00)
[2020-08-14] MEDS ORDERED: MULTIVIT W/ MINERAL TAB PO SCH (09:00)
[2020-08-14] MEDS ORDERED: FERROUS SULFATE 325 MG TAB PO SCH (09:00)
[2020-08-14 10:16] VITALS: O2SAT 97
--- NOTE | 2020-08-14 10:51 | RAD REPORT ---
EXAM DESCRIPTION: Krissy Pa And Lat (2 Views)08/14/2020 10:42 am CLINICAL HISTORY: Cough COMPARISON: July FINDINGS: Mild improvement in the bilateral pulmonary opacities. Heart is borderline enlarged. Postsurgical changes involve the chest IMPRESSION: Mild improvement in bilateral pulmonary opacities probably pneumonia
[2020-08-14 12:31] VITALS: BP 96/67; TEMP 97.5
== END 2020-08-14 11:55 | disposition home or self-care (01) | DRG 335 ==
LOC: ER 13:35 → ERHOLD 16:29 → 2ND 18:00 → OBSVTOIN 08-13 15:54
PROVIDERS: ADMIT Surgery; ATTEND Family Medicine
PROC: 0DN84ZZ Release Small Intestine, Percutaneous Endoscopic Approach (ICD-10-PCS; principal; 2020-08-12 18:00)
DX: K56.609 Unspecified intestinal obstruction, unspecified as to partial versus complete obstruction (principal); J18.9 Pneumonia, unspecified organism; I50.32 Chronic diastolic (congestive) heart failure; J44.0 Chronic obstructive pulmonary disease with (acute) lower respiratory infection; I11.0 Hypertensive heart disease with heart failure; G89.29 Other chronic pain; I25.10 Atherosclerotic heart disease of native coronary artery without angina pectoris; E78.5 Hyperlipidemia, unspecified; I48.91 Unspecified atrial fibrillation; Z79.01 Long term (current) use of anticoagulants; Z88.1 Allergy status to other antibiotic agents; Z96.653 Presence of artificial knee joint, bilateral; Z95.1 Presence of aortocoronary bypass graft; Z79.52 Long term (current) use of systemic steroids; Z79.899 Other long term (current) drug therapy; Z20.822 Contact with and (suspected) exposure to COVID-19
CPT/HCPCS: 36415; 71045; 71046; 74177; 80048; 80076; 81003; 81015; 82565; 83690; 83735; 84484; 85025; 87040; 87086; 87088; 93005; 94010; 96361; 96374; 96375; 99285; C9113; G0378; J0330; J0696; J1100; J1170; J2270; J2370; J2405; J2543; J2550; J2704; J2710; J3010; J7030; J7120; Q9967; U0003

== ENCOUNTER 2020-08-22 06:14 | Inpatient (IN) | payer OTHER ==
--- OUTSIDE RECORDS SUMMARY | 2020-08-22 06:18 | XMS REPORT | Continuity of Care Document ---
:1930 Author Organization [facility] t Address 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[place] 07-26 [facility]: st 00 [facility]u [facility] hearing hearing [facility]: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 06-01 [facility] ears ears 00:00: st 00 Allergies, Adverse Reactions, Alerts Allergy Allergy Status Severity Reaction(s) Onset Inactive Treating Comm ents Source Name Type Date Date Clinician Sulfa Propensi Active [place] (Sulfona ty to 17 [facility] mide adverse 00:00: st Antibiot reaction 00 ics) s to drug Social History Social Habit Start Date Stop Date Quantity Comments Source Tobacco use and 2018-07-26 2018-07-26 Never used [facility] ethodist exposure 00:00:00 00:00:00 Alcohol intake 2018-07-26 2018-07-26 Current [place] Tn thodist 00:00:00 00:00:00 non-drinker of alcohol (finding) [...] times a day. oxybutynin 2018- Yes 5mg [id number] Take 5 mg [place] (DITROPAN) 3-13 [id number] by mouth 3 [facility] 5 MG tablet [...] (two) st 12 times a day. tadalafil 2019-0 Yes 20mg Q24H Take 20 mg [place] (CIALIS) 20 3-13 by mouth Meth jose francisco mg tablet 15:05: daily as st 12 needed. gabapentin 2019-0 Yes 400mg [id number] Take 400 [place] (NEURONTIN) 3-13 [id number] mg by M ethodi 400 mg 15:05: 3D mouth 3 st capsule 12 (three) times a day. carvedilol 2019- Yes 3.125mg Q.5D Take 3.125 [place] (COREG) 3-13 mg by [facility] 3.125 MG 15:05: mouth 2 st tablet 12 (two) times a day with meals. HYDROcodone 2018- Yes TAKE 1 [place] -acetaminop 2-26 [...] MRNA 2020-06-23 Completed [place] VACCINATION 00:00:00 [place] PFIZER COVID-19 MRNA 2020-06-02 Completed [place] VACCINATION 00:00:00 [place] Procedures Procedure Date / Time Performed Performing Clinician Sourc e MRI SACRUM AND OR 2020-01-25 19:37:52 Kaykay Otero COCCYX WO CONTRAST MRI LUMBAR SPINE WO 2020-01-25 19:03:36 Kaykay Otero CONTRAST Plan of Care Planned Activity Planned Date Details Comments Source Future Scheduled 2020-12-14 INFLUENZA VACCINE Neo ballesteros [facility] Test 00:00:00 [code = INFLUENZA VACCINE] Future Scheduled 1996 65+ PNEUMOCOCCAL Shyam [facility] Test 00:00:00 VACCINE (1 of 1 - PPSV23) [code = 65+ PNEUMOCOCCAL VACCINE (1 of 1 - PPSV23)] Future Scheduled 1981 SHINGLES VACCINES (#1) Jose Ramon Barrettist Test 00:00:00 [code = SHINGLES VACCINES (#1)] Encounters Start End Encounter Admission Attending Care Care Encounter Source Date/Time Date/Time Type Type Clinicians Facility Department ID 2020-06-23 2020-06-23 Outpatient [facility] [id number] [place] 00:00:00 00:00:[address] 2020-06-02 2020-06-02 Outpatient [facility] [id number] [place] 00:00:00 00:00:[address] 2020-01-25 2020-01-25 Outpatient [place], [facility] [id number] [place] 00:00:00 00:00:00 KAYKAY [address] 2020-01-25 2020-01-25 Outpatient [facility], [facility] [id number] [place] 00:00:00 00:00:00 KAYKAY [address] Results Test Description Test Time Test Comments Results Result Sourc e Comments MRI Lumbar Spine 2020-01-15 Interface, [facility] on Wo Contrast 1 Radiology Results Method ist 19:53:18 - 01/25/2020 7:56 PM CDT EXAMINATION: MRI LUMBAR [...] disc space narrowing is seen at L5-S1 level.[facility]-[id number]
[2020-08-22 07:00] LABS: Absolute Lymphocytes (CBC) 2.3 K/uL (0.7-4.9); Basophils % 0.5 % (0-1.3); Hematocrit 38.7 % (39.6-49.0); Lymphocytes % 21.6 % (15.3-44.8); MPV 7.1 fL (7.6-11.3); RBC Red Blood Cell Count 4.03 M/uL (4.33-5.43)
[2020-08-22 07:15] LABS: Bilirubin Direct 0.3 mg/dL (0-0.2); Bilirubin Total 0.7 mg/dL (0.2-1.0); Potassium 3.2 mmol/L (3.5-5.1); Protein, Total 7.1 g/dL (6.4-8.2)
[2020-08-22] MEDS ORDERED: MORPHINE 4 MG/ML SYR ONE ×2 (07:41→08:58)
[2020-08-22] MEDS ORDERED: NA CHLORIDE 0.9% 1,000 ML ONE ×2 (07:41→13:40)
[2020-08-22] MEDS ORDERED: ONDANSETRON 4 MG/2 ML VIAL ONE ×3 (07:41→13:40)
--- NOTE | 2020-08-22 08:28 | RAD REPORT ---
EXAM DESCRIPTION: CT - Abdomen Pelvis W Contrast - 08/22/2020 7:36 am CLINICAL HISTORY: ABD PAIN COMPARISON: Abdomen Pelvis W Contrast dated 08/12/2020 TECHNIQUE: Biphasic, helical CT imaging of the abdomen and pelvis was performed following 100 ml non -ionic IV contrast. No oral contrast administered. All CT scans are performed using dose optimization technique as appropriate and may include automated exposure control or mA/KV adjustment according to patient size. FINDINGS: The first image of the examination shows a 15 millimeter soft tissue density in the spar cap beveler ior lower right lung field. No prior imaging is available that adequately imaged this part of the [facility]. The possibility of a small lung mass cannot be excluded and follow-up CT chest imaging could be p erformed once the patient recovers from the subsequently detailed findings. Cardiomegaly is present with no pericardial thickening or effusion. Enlargement is primarily biatrial . The liver and spleen show no suspicious findings. No portal vein abnormality seen. Gallbladder is con tracted limiting evaluation. No acute gallbladder finding suspected. No biliary tree dilatation. Atro phic and fatty infiltrated pancreas shows no acute finding. Symmetric renal function is seen with no hydronephrosis or suspicious renal mass. No pyelonephritis o r acute parenchymal process. No bladder abnormalities. No adrenal abnormalities. Stomach is distended by fluid, fluid and air. No wall thickening, mass or pneumatosis. Numerous dilat ed small bowel loops are seen up to 5-6 cm in diameter. No small bowel mass or wall thickening seen. Transition is in the right mid abdomen. Obstructing mass is not seen. This is probably an adhesion or internal hernia. There are multiple small bowel loops that have fecalized bowel content. Moderate stool volume is present throughout the colon. No acute colon process seen. Trace amount of f ree fluid is present. No pneumatosis. Minimal amounts of free air seen in the peritoneal cavity. This is not unexpected given the history of small bowel obstruction surgery 1 week ago. No mass or bulky lymphadenopathy. No suspicious bony findings. Prominent disc and bony degenerative changes are present peer IMPRESSION: Prominent small bowel obstruction pattern is again identified. Transition point is in th e right mid abdomen. An obstructing mass is not seen. Adhesion or internal hernia are most likely. Small amounts of free air present though this is not unexpected given the recent surgery. Patient has a 15 millimeter mass density in the posterior lower right lung field that is only partial ly imaged. Once the patient has recovered from the bowel obstruction, CT chest imaging would be myriam mmended to further evaluate this finding.
--- NOTE | 2020-08-22 08:29 | EDPHYS ---
Physician Documentation [facility] Name: Jayden Lopez Age: 89 yrs Sex: Male : 1930 Arrival Date: 08/22/2020 Time: 06:18 Bed 19 Private MD: ZUHAIR Physician Quincy Brown HPI: 08/22 07:01 This 89 yrs old Male presents to ER via Wheelchair with complaints of ma2 Abdominal Pain. 07:01 The patient presents with abdominal pain. Associated signs and symptoms: Pertinent ma2 positives: constipation, nausea, Pertinent negatives: anorexia, chest pain, diarrhea. Severity of pain: At its worst the pain was moderate in the emergency department the pain is unchanged. The patient has experienced a previous episode. had sbo 2 days ago s/p laproscopic operation by dr. castillo . Historical: - Allergies: 06:39 Sulfa (Sulfonamide Antibiotics); em - Home Meds: 06:39 atorvastatin 40 mg Oral tab 1 tab once daily [Active]; furosemide 40 mg Oral tab 1 tab em once daily [Active]; Cozaar 50 mg Oral tab 1 tab 2 times per day [Active]; Pradaxa 150 mg Oral cap 1 cap 2 times per day [Active]; oxybutynin chloride 5 mg Oral tab 1 tab 2 times per day [Active]; Nexium 40 mg Oral cpDR 1 cap once daily [Active]; gabapentin 600 mg oral tab 1 tab 3 times per day [Active]; loratadine 10 mg oral tab 1 tab once daily [Active]; Colace 100 mg oral cap 1 cap 2 times per day [Active]; - PMHx: 06:39 Atrial Fib; CHF; Hypertension; em - PSHx: 06:39 heart bypass; bilateral knee replacement; shoulder, both knee sx; em - Immunization history:: Adult Immunizations up to date. - Social history:: Smoking status: Patient denies any tobacco usage or history of. Patient/guardian denies using alcohol, street drugs, The patient lives with family. - Family history:: not pertinent. ROS: 07:01 Constitutional: Negative for fever, chills, and weight loss. ma2 07:01 All other systems are negative. Exam: 07:01 Constitutional: This is a well developed, well nourished patient who is awake, alert, ma2 and in no acute distress. Head/Face: Normocephalic, atraumatic. Eyes: Pupils equal round and reactive to light, extra-ocular motions intact. Lids and lashes normal. Conjunctiva and sclera are non-icteric and not injected. Cornea within normal limits. Periorbital areas with no swelling, redness, or edema. ENT: Nares patent. No nasal discharge, no septal abnormalities noted. Tympanic membranes are normal and external auditory canals are clear. Oropharynx with no redness, swelling, or masses, exudates, or evidence of obstruction, uvula midline. Mucous membranes moist. Neck: Trachea midline, no thyromegaly or masses palpated, and no cervical lymphadenopathy. Supple, full range of motion without nuchal rigidity, or vertebral point tenderness. No Meningismus. Chest/axilla: Normal chest wall appearance and motion. Nontender with no deformity. No lesions are appreciated. Cardiovascular: Regular rate and rhythm with a normal S1 and S2. No gallops, murmurs, or rubs. Normal PMI, no JVD. No pulse deficits. Respiratory: Lungs have equal breath sounds bilaterally, clear to auscultation and percussion. No rales, rhonchi or wheezes noted. No increased work of breathing, no retractions or nasal flaring. Abdomen/GI: Soft, non-tender, with normal bowel sounds. No distension or tympany. No guarding or rebound. No evidence of tenderness throughout. Skin: Warm, dry with normal turgor. Normal color with no rashes, no lesions, and no evidence of cellulitis. MS/ Extremity: Pulses equal, no cyanosis. Neurovascular intact. Full, normal range of motion. Neuro: Awake and alert, GCS 15, oriented to person, place, time, and situation. Cranial nerves II-XII grossly intact. Motor strength 5/5 in all extremities. Sensory grossly intact. Cerebellar exam normal. Normal gait. Vital Signs: 06:31 BP 125 / 68; Pulse 97; Resp 18; Temp 97.9(O); Pulse Ox 98% on R/A; Weight 90.72 kg; em Height 5 ft. 11 in. (180.34 cm); Pain 10/10; 07:10 BP 104 / 66; Pulse 88; Resp 18; Pulse Ox 97% on R/A; bw 08:30 BP 104 / 60; Pulse 77; Resp 20; Pulse Ox 96% on R/A; bw 06:31 Body Mass Index 27.89 (90.72 kg, 180.34 cm) em MDM: 06:34 Patient medically screened. ma2 07:01 Differential diagnosis: bowel obstruction, diverticulitis, gastritis, Irritable bowel ma2 syndrome, pancreatitis. 07:35 Patient medically screened. [facility] 10:30 Data reviewed: vital signs, nurses notes, lab test result(s). Data interpreted: Cardiac josefa monitor: rate is 77 beats/min, rhythm is atrial fibrillation, atrial flutter, Pulse oximetry: on room air is 96 %. Test interpretation: by ED physician or midlevel provider: ECG, plain radiologic studies. Counseling: I had a detailed discussion with the patient and/or guardian regarding: the historical points, exam findings, and any diagnostic results supporting the discharge/admit diagnosis, lab results, radiology results, the need for further work-up and treatment in the hospital. 08/22 06:32 Order name: Basic Metabolic Panel; Complete Time: 07:58 08/22 06:32 Order name: CBC with Diff; Complete Time: 07:58 08/22 06:32 Order name: Hepatic Function; Complete Time: 07:58 08/22 06:32 Order name: Lipase; Complete Time: 07:58 08/22 08:00 Order name: Magnesium [facility] 08/22 08:00 Order name: NT PRO-BNP [facility] 08/22 08:00 Order name: PT-INR; Complete Time: 15:38 [facility] 08/22 08:00 Order name: Troponin (emerg Dept Use Only) [facility] 08/22 08:01 Order name: Magnesium; Complete Time: 10:29 [facility] 08/22 08:01 Order name: NT PRO-BNP; Complete Time: 10:29 [facility] 08/22 08:01 Order name: Troponin (Emerg Dept Use Only); Complete Time: 10:29 [facility] 08/22 10:19 Order name: COVID-19 : Document "Date of Symptom Onset" if Symptomatic. sv 08/22 11:05 Order name: CORONAVIRUS EDAL 08/22 11:47 Order name: SARS-COV-2 RT PCR; Complete Time: 15:38 [facility]AL 08/22 06:32 Order name: IV Saline Lock; Complete Time: 07:01 08/22 06:32 Order name: Labs collected and sent; Complete Time: 07:01 08/22 06:57 Order name: CT Abd/Pelvis - IV Contrast Only; Complete Time: 10:29 [facility] 08/22 06:59 Order name: NG Tube; Complete Time: 09:29 mi2 08/22 08:00 Order name: XRAY Chest (1 view); Complete Time: 10:29 [facility] 08/22 08:00 Order name: EKG; Complete Time: 08:01 [facility] 08/22 08:00 Order name: Cardiac monitoring; Complete Time: 09:29 [facility] 08/22 08:00 Order name: EKG - Nurse/Tech; Complete Time: 10:07 [facility] 08/22 08:00 Order name: O2 Per Protocol; Complete Time: 09:29 [facility] 08/22 09:46 Order name: CONS Physician Consult [facility] 08/22 09:46 Order name: NPO; Complete Time: 10:16 [facility] 08/22 08:00 Order name: O2 Sat Monitoring; Complete Time: 09:29 [facility] Administered Medications: 07:28 Drug: Zofran (Ondansetron) 4 mg Route: IVP; Site: right wrist; bw 07:49 Follow up: Response: No adverse reaction bw 07:29 Drug: NS 0.9% 1000 ml Route: IV; Rate: 75 ml/hr; Site: right forearm; bw 07:29 Drug: morphine 4 mg Route: IVP; Site: right forearm; bw 07:49 Follow up: Response: No adverse reaction bw 09:31 Drug: morphine 4 mg Route: IVP; Site: right forearm; bw 10:16 Follow up: Response: No adverse reaction bw 09:31 Drug: Zofran (Ondansetron) 4 mg Route: IVP; Site: right forearm; bw 10:16 Follow up: Response: No adverse reaction Disposition: 08/22/20 08:28 Hospitalization ordered by Felicia Alvares for Inpatient Admission. Preliminary diagnosis are Generalized abdominal pain, Other intestinal obstruction - bowel /small bowel obstruction, Vomiting, Hypokalemia, Atrial fibrillation and flutter. - Bed requested for Telemetry/MedSurg (Inpatient). - Status is Inpatient Admission. ss - Condition is Fair. - Problem is new. - Symptoms have improved. Signatures: Dispatcher [employer] EDYesy Doan FNP-C [employer]-Ckb Anamika Anaya RN RN dw Quincy Brown MD MD cha Munoz, Edgar RN MICHELLE Mena Sue RN RN Felicia Pete MD MD miRosie Wilson Bethany, RN RN Corrections: (The following items were deleted from the chart) 10:32 08:28 Hospitalization Ordered by Felicia Alvares MD for Inpatient Admission. Preliminary josefa diagnosis is Generalized abdominal pain; Other intestinal obstruction - bowel; Vomiting. Bed requested for Telemetry/MedSurg (Inpatient). Status is Inpatient Admission. Condition is Fair. Problem is new. Symptoms have improved. josefa 10:43 10:32 08/22/2020 08:28 Hospitalization Ordered by Felicia Alvares MD for Inpatient ss Admission. Preliminary diagnosis is Generalized abdominal pain; Other intestinal obstruction - bowel /small bowel obstruction; Vomiting; Hypokalemia; Atrial fibrillation and flutter. Bed requested for Telemetry/MedSurg (Inpatient). Status is Inpatient Admission. Condition is Fair. Problem is new. Symptoms have improved. josefa 14:23 10:43 08/22/2020 08:28 Hospitalization Ordered by Felicia Alvares MD for Inpatient dw Admission. Preliminary diagnosis is Generalized abdominal pain; Other intestinal obstruction - bowel /small bowel obstruction; Vomiting; Hypokalemia; Atrial fibrillation and flutter. Bed requested for [facility] ER HOLD. Status is Inpatient Admission. Condition is Fair. Problem is new. Symptoms have improved. 16:27 14:23 08/22/2020 08:28 Hospitalization Ordered by Felicia Alvares MD for Inpatient ss Admission. Preliminary diagnosis is Generalized abdominal pain; Other intestinal obstruction - bowel /small bowel obstruction; Vomiting; Hypokalemia; Atrial fibrillation and flutter. Bed requested for Telemetry/MedSurg (Inpatient). Status is Inpatient Admission. Condition is Fair. Problem is new. Symptoms have improved. dw
--- NOTE | 2020-08-22 08:29 | ER ---
Nurse's Notes [facility] Name: Jayden Lopez Age: 89 yrs Sex: Male : 1930 Arrival Date: 08/22/2020 Time: 06:18 Bed 19 Private MD: Diagnosis: Generalized abdominal pain;Other intestinal obstruction-bowel /small bowel obstruction;Vomiting;Hypokalemia;Atrial fibrillation and flutter Presentation: 08/22 06:31 Chief complaint: Patient states: abdominal pain with nausea that started yesterday at 5 em PM, had recently been admitted for a SBO and had surgery performed by Dr. Cai last week, abdomen is noted to be distended and rigid. Coronavirus screen: Client denies travel out of the [place] in the last 14 days. Ebola Screen: Patient negative for fever greater than or equal to 101.5 degrees Fahrenheit, and additional compatible Ebola Virus Disease symptoms Patient denies exposure to infectious person. Patient denies travel to an Ebola-affected area in the 21 days before illness onset. No symptoms or risks identified at this time. Initial Sepsis Screen: Does the patient meet any 2 criteria? HR > 90 bpm. Does the patient have a suspected source of infection? No. Patient's initial sepsis screen is negative. Risk Assessment: Do you want to hurt yourself or someone else? Patient reports no desire to harm self or others. Onset of symptoms was August 21, 2020. 06:31 Method Of Arrival: Wheelchair em 06:31 Acuity: LEX 3 em Historical: - Allergies: 06:39 Sulfa (Sulfonamide Antibiotics); em - Home Meds: 06:39 atorvastatin 40 mg Oral tab 1 tab once daily [Active]; furosemide 40 mg Oral tab 1 tab em once daily [Active]; Cozaar 50 mg Oral tab 1 tab 2 times per day [Active]; Pradaxa 150 mg Oral cap 1 cap 2 times per day [Active]; oxybutynin chloride 5 mg Oral tab 1 tab 2 times per day [Active]; Nexium 40 mg Oral cpDR 1 cap once daily [Active]; gabapentin 600 mg oral tab 1 tab 3 times per day [Active]; loratadine 10 mg oral tab 1 tab once daily [Active]; Colace 100 mg oral cap 1 cap 2 times per day [Active]; - PMHx: 06:39 Atrial Fib; CHF; Hypertension; em - PSHx: 06:39 heart bypass; bilateral knee replacement; shoulder, both knee sx; em - Immunization history:: Adult Immunizations up to date. - Social history:: Smoking status: Patient denies any tobacco usage or history of. Patient/guardian denies using alcohol, street drugs, The patient lives with family. - Family history:: not pertinent. Screenin:42 Abuse screen: Denies threats or abuse. Nutritional screening: No deficits noted. jb4 Tuberculosis screening: No symptoms or risk factors identified. Fall Risk None identified. Assessment: 06:40 General: Appears in no apparent distress. uncomfortable, Behavior is calm, cooperative, jb4 appropriate for age. Pain: Complains of pain in abdomen Pain does not radiate. Pain currently is 10 out of 10 on a pain scale. Neuro: Level of Consciousness is awake, alert, obeys commands, Oriented to person, place, time, situation. Cardiovascular: Patient's skin is warm and dry. Respiratory: Airway is patent Respiratory effort is even, unlabored, Respiratory pattern is regular, symmetrical. GI: Abdomen is round distended, Last BM was August 21, 2020. Bowel sounds present X 4 quads. diminished in right lower quadrant and left lower quadrant Abd is soft X 4 quads Abdomen is tender to palpation X 4 quads. Reports lower abdominal pain, upper abdominal pain, nausea. : No signs and/or symptoms were reported regarding the genitourinary system. EENT: No signs and/or symptoms were reported regarding the EENT system. Derm: Skin is intact, Skin is pink, warm \T\ dry. Musculoskeletal: Circulation, motion, and sensation intact. Range of motion: intact in all extremities. 07:10 Reassessment: Patient appears in no apparent distress at this time. No changes from previously documented assessment. 07:10 Reassessment: Received report from Darren MARTINEZ. 08:30 Reassessment: Patient appears in no apparent distress at this time. No changes from previously documented assessment. Patient and/or family updated on plan of care and expected duration. Pain level reassessed. Patient is alert, oriented x 3, equal unlabored respirations, skin warm/dry/pink. 10:15 Reassessment: Patient appears in no apparent distress at this time. No changes from bw previously documented assessment. Patient and/or family updated on plan of care and expected duration. Pain level reassessed. Patient is alert, oriented x 3, equal unlabored respirations, skin warm/dry/pink. Vital Signs: 06:31 BP 125 / 68; Pulse 97; Resp 18; Temp 97.9(O); Pulse Ox 98% on R/A; Weight 90.72 kg; em Height 5 ft. 11 in. (180.34 cm); Pain 10/10; 07:10 BP 104 / 66; Pulse 88; Resp 18; Pulse Ox 97% on R/A; bw 08:30 BP 104 / 60; Pulse 77; Resp 20; Pulse Ox 96% on R/A; bw 06:31 Body Mass Index 27.89 (90.72 kg, 180.34 cm) em ED Course: 06:18 Patient arrived in ED. bp1 06:34 Felicia Pete MD is Attending Physician. ma2 06:35 Triage completed. em 06:39 Arm band placed on. em 06:42 Patient has correct armband on for positive identification. Bed in low position. Call jb4 light in reach. Side rails up X 1. Pulse ox on. NIBP on. 07:08 Raquel Ruano, MICHELLE is Primary Nurse. bw 07:35 Attending Physician role handed off by Felicia Pete MD josefa 07:35 Quincy Brown MD is Attending Physician. josefa 07:36 CT Abd/Pelvis - IV Contrast Only In Process Unspecified. EDMS 08:21 Felicia Alvares MD is Hospitalizing Provider. josefa 09:26 XRAY Chest (1 view) In Process Unspecified. EDMS Administered Medications: 07:28 Drug: Zofran (Ondansetron) 4 mg Route: IVP; Site: right wrist; bw 07:49 Follow up: Response: No adverse reaction bw 07:29 Drug: NS 0.9% 1000 ml Route: IV; Rate: 75 ml/hr; Site: right forearm; bw 07:29 Drug: morphine 4 mg Route: IVP; Site: right forearm; bw 07:49 Follow up: Response: No adverse reaction bw 09:31 Drug: morphine 4 mg Route: IVP; Site: right forearm; bw 10:16 Follow up: Response: No adverse reaction bw 09:31 Drug: Zofran (Ondansetron) 4 mg Route: IVP; Site: right forearm; 10:16 Follow up: Response: No adverse reaction Outcome: 08:28 Decision to Hospitalize by Provider. [facility] 16:27 Patient left the ED. Signatures: Dispatcher [employer] Quincy Martin MD MD cha Munoz, Edgar, RN RN em Smirch, Shelby, RN RN Fortunato Santos RN RN jb4 Felicia Pete MD MD ny2 Linda Stevens [facility] Raquel Ruano RN RN
[2020-08-22] MEDS ORDERED: ACETAMINOPHEN 500 MG TAB PO PRN (09:42)
[2020-08-22] MEDS ORDERED: ONDANSETRON 4 MG/2 ML VIAL IV PRN (09:42)
[2020-08-22] MEDS: NA CHLORIDE 0.9% 1,000 ML IV SCH ×2 (10:00→23:20)
--- NOTE | 2020-08-22 10:22 | RAD REPORT ---
EXAM DESCRIPTION: RAD - Chest Single View - 08/22/2020 9:26 am CLINICAL HISTORY: ABDOMINAL DISTENTION COMPARISON: August 14 TECHNIQUE: AP portable chest image was obtained 08/22/2020 9:26 am . FINDINGS: Extensive fibrotic lung changes are present worse in each upper lung field. No new lung pa renchymal process identifiable. cardiomediastinal silhouette is stable. Mediastinum is widened by rot ation. Sternotomy wires are in place. NG tube has been placed extending below the diaphragm into the air in fluid distended stomach. There is bowel interposition between the liver and right hemidiaphragm. Patient has known minimal peritone al free air written to surgery 1 week earlier. IMPRESSION: NG tube has been placed in good position. Chronic fibrotic stranding in each upper lung field.
[2020-08-22 10:27] LABS: Magnesium 1.9 mg/dL (1.8-2.4); NT PRO-BNP 2698 pg/mL (<450); Troponin (Emerg Dept Use Only) < 0.02 ng/mL (0.0-0.045)
[2020-08-22 10:34] LABS: Protime INR 1.17
[2020-08-22] MEDS: METRONIDAZOLE 500mg IVPB 500 MG/100 ML BAG IV SCH ×3 (12:00→23:37)
[2020-08-22] MEDS: CEFOXITIN/SWI 1gm 1 GM/10 ML SYR IV SCH ×3 (12:00→23:39)
[2020-08-22] MEDS ORDERED: CEFOXITIN SODIUM 1 GM/VIAL IVPB SCH (12:00)
[2020-08-22] MEDS: HYDROMORPHONE HCL 1 MG/ML INJ IV PRN ×2 (13:30→17:02)
[2020-08-22] MEDS ORDERED: METRONIDAZOLE 500mg IVPB 500 MG/100 ML BAG IV ONE (13:40)
[2020-08-22] MEDS ORDERED: HYDROMORPHONE HCL 2 MG/ML inj ONE (13:40)
[2020-08-22 14:33] VITALS: BMI 27.8
[2020-08-22] MEDS ORDERED: DIAZEPAM 5 MG TABLET PO PRN (16:43)
[2020-08-22] MEDS: KCL 20 MEQ/100 mL IVPB 20 MEQ/100 ML BAG IV SCH ×2 (17:00→20:15)
[2020-08-22] MEDS ORDERED: MINERAL OIL 30 ML UCUP FT ONE ×2 (18:00→23:00)
[2020-08-22] MEDS ORDERED: MINERAL OIL 30 ML UCUP PO ONE (23:00)
[2020-08-23 01:02] VITALS: O2SAT 94
[2020-08-23] MEDS: NA CHLORIDE 0.9% 1,000 ML IV SCH ×3 (03:34→23:41)
[2020-08-23] MEDS: CEFOXITIN/SWI 1gm 1 GM/10 ML SYR IV SCH ×4 (05:21→23:40)
[2020-08-23] MEDS: METRONIDAZOLE 500mg IVPB 500 MG/100 ML BAG IV SCH ×4 (05:22→23:41)
[2020-08-23 05:53] LABS: Hematocrit 36.9 % (39.6-49.0); RBC Red Blood Cell Count 3.84 M/uL (4.33-5.43)
[2020-08-23 05:54] LABS: Absolute Lymphocytes (CBC) 2.2 K/uL (0.7-4.9); Basophils % 1.2 % (0-1.3); Lymphocytes % 21.3 % (15.3-44.8); MPV 7.1 fL (7.6-11.3)
[2020-08-23 06:14] LABS: Albumin 2.9 g/dL (3.4-5.0); Bilirubin Total 0.6 mg/dL (0.2-1.0); Magnesium 1.9 mg/dL (1.8-2.4); Phosphorus 2.5 mg/dL (2.5-4.9); Potassium 3.9 mmol/L (3.5-5.1); Protein, Total 6.5 g/dL (6.4-8.2)
[2020-08-23] MEDS ORDERED: MINERAL OIL 30 ML UCUP FT ONE (08:00)
--- NOTE | 2020-08-23 08:51 | RAD REPORT ---
EXAM DESCRIPTION: RAD - Abdomen Acute Series - 08/23/2020 6:48 am CLINICAL HISTORY: abdominal pain COMPARISON: Chest Single View dated 08/22/2020; Abdomen Pelvis W Contrast dated 08/22/2020 FINDINGS: Upper lobe fibrotic lung pattern again noted. No new lung parenchymal process seen. Cardio mediastinal silhouette is prominent but stable. No pneumothorax or enlarging the fusion. NG tube is in place. Stomach is decompressed. Multiple dilated small bowel loops are present not subs tantially different from the August 22 CT study. No free air or pneumatosis seen. IMPRESSION: Prominent small bowel obstruction pattern matching the August [address] CT study. Stomach is decompressed around an NG tube. No free air or pneumatosis. Stable chest.
[2020-08-23] MEDS ORDERED: POTASSIUM PHOS IN 0.9 % NACL 15 MMOL/250 ML BAG IV ONE (09:00)
[2020-08-23] MEDS: ENOXAPARIN 40 MG/0.4 ML SQ SCH (09:16)
--- NOTE | 2020-08-23 10:18 | EKG ---
Test Date: 2020-08-22 Test Time: 10:03:06 [employer]visor [place]: JACKY MEASUREMENT RESULTS: Intervals: Rate: 81 AK: QRSD: 100 QT: 402 QTc: 466 [place]: P: AK: QRS: -42 T: 109 INTERPRETIVE STATEMENTS: Atrial fibrillation Left axis deviation Anteroseptal infarct, age undetermined Abnormal ECG Compared to ECG 08/12/2020 14:40:38 Myocardial infarct finding now present Sinus rhythm no longer present Sinus arrhythmia no longer present Ventricular premature complex(es) no longer present T-wave abnormality no longer present Possible ischemia no longer present Electronically Signed On 08-23-20 10:15:36 CDT by Richard Sierra
[2020-08-23] MEDS ORDERED: BISACODYL 10 MG RECTAL SUPP PR ONE (17:37)
[2020-08-23] MEDS ORDERED: MINERAL OIL 30 ML UCUP PO ONE (17:43)
--- NOTE | 2020-08-23 17:59 | P.PN ---
Date of Service: 08/23/20 S: Patient states he feels much more comfortable today, abdomen is lot softer. Had a few small scanty bowel movements today. Minimal amount of gas per rectum. Has been up ambulating, his throat is hurting him with the NG tube. O: Vital signs are stable, abdomen is much softer, minimal out through the nasogastric tube. Abdominal films does show much change, but as stomach is been decompressed. Has received a few doses of mineral oil. A: This is a surgical abdomen at the moment. Has received mineral oil. Will Dc NG tube, start on some clear liquids, Cepacol lozenges for throat pain and begin some Ensure as his nutrition status is declining. P: Dc NG tube, ambulate, continue incentive spirometry. Clear liquids, 1 can of Ensure to day, Valium 5 mg p.o. at bedtime. Will reassess in the a.m..
[2020-08-23] MEDS ORDERED: ENSURE ENLIVE 237 ML CAN PO ONE (21:00)
[2020-08-24] MEDS: NA CHLORIDE 0.9% 1,000 ML IV SCH ×2 (02:00→15:20)
[2020-08-24] MEDS: METRONIDAZOLE 500mg IVPB 500 MG/100 ML BAG IV SCH ×3 (05:35→17:44)
[2020-08-24] MEDS: CEFOXITIN/SWI 1gm 1 GM/10 ML SYR IV SCH ×3 (05:35→17:44)
[2020-08-24 05:59] LABS: BUN Blood Urea Nitrogen 10 mg/dL (7-18); Bicarbonate 30 mmol/L (21-32); Glucose Level 79 mg/dL (74-106); Phosphorus 1.7 mg/dL (2.5-4.9); Potassium 3.3 mmol/L (3.5-5.1); Sodium Level 143 mmol/L (136-145)
[2020-08-24] MEDS: ENOXAPARIN 40 MG/0.4 ML SQ SCH (08:50)
[2020-08-24] MEDS ORDERED: POTASSIUM PHOS IN 0.9 % NACL 15 MMOL/250 ML BAG IV ONE (09:00)
[2020-08-24] MEDS ORDERED: POTASSIUM 25 MEQ EFFERV TAB PO ONE (09:00)
[2020-08-24] MEDS: CEPACOL LOZENGES PO PRN ×2 (09:58→17:41)
[2020-08-24] MEDS ORDERED: POTASSIUM CL SA 10 MEQ TAB PO ONE (20:08)
[2020-08-25] MEDS: METRONIDAZOLE 500mg IVPB 500 MG/100 ML BAG IV SCH ×2 (00:19→06:30)
[2020-08-25] MEDS: CEPACOL LOZENGES PO PRN (01:06)
[2020-08-25] MEDS: NA CHLORIDE 0.9% 1,000 ML IV SCH (04:40)
[2020-08-25 05:59] LABS: BUN Blood Urea Nitrogen 7 mg/dL (7-18); Bicarbonate 29 mmol/L (21-32); Glucose Level 97 mg/dL (74-106); Phosphorus 1.8 mg/dL (2.5-4.9); Potassium 3.7 mmol/L (3.5-5.1); Sodium Level 140 mmol/L (136-145)
[2020-08-25 06:00] VITALS: BP 111/57; TEMP 98.3
[2020-08-25] MEDS: CEFOXITIN/SWI 1gm 1 GM/10 ML SYR IV SCH ×2 (06:00)
--- NOTE | 2020-08-25 07:30 | P.HP ---
Certification for Inpatient Patient admitted to: Inpatient With expected LOS: >2 Midnights Patient will require the following post-hospital care: None Practitioner: I am a practitioner with admitting privileges, knowledge of patient current condition, hospital course, and medical plan of care. Services: Services provided to patient in accordance with Admission requirements found in Title 42 Section 412.3 of the Code of Federal Regulations Patient History Date of Service: 08/22/20 Reason for admission: Small-bowel obstruction History of Present Illness: Patient is a 89-year-old gentleman who came to the hospital in late July with small-bowel obstruction. Patient status post lysis of adhesion. Patient did well postoperatively but he started having abdominal pain a couple days ago. He started getting abdominal distention and some nausea and came into the hospital. X-ray reveals small-bowel obstruction. Patient will be admitted and surgery consultation. Patient will continue with IV fluids. Continue with IV antibiotics. Patient we monitored and surgical consultation we obtained. NG tube to low wall intermittent suctioning. Allergies Sulfa (Sulfonamide Antibiotics) Allergy (Intermediate, Verified 08/12/20 23:49) Shortness of breath Home Medications: Atorvastatin Calcium [Lipitor] 40 mg PO BEDTIME 01/06/19 Dabigatran Etexilate Mesylate [Pradaxa*] 150 mg PO BID 01/06/19 Esomeprazole Mag Trihydrate [Nexium] 40 mg PO DAILY 01/06/19 Furosemide [Lasix*] 40 mg PO DAILY 01/06/19 Iron,Carb/Vit C/Vit B12/Folic [Iron 100 Plus Tablet] 65 mg PO DAILY 01/06/19 Oxybutynin Chloride [Ditropan*] 5 mg PO BID 01/06/19 Albuterol Sulfate [Proair Hfa] 2 puff IH SEECOM PRN 01/07/19 Fluticasone Propionate [Flovent Diskus] 1 - 2 spray IH DAILY PRN 01/07/19 Fluticasone/Salmeterol [Advair Hfa 230-21 Mcg Inhaler] 2 puff IH BID PRN 01/07/19 Hydrocodone/Acetaminophen [Hydrocodone-Acetamin 10-325 mg] 1 tab PO Q4H PRN 01/07/19 Multivit-Min/FA/Lycopen/Lutein [Centrum Silver Tablet] 1 tab PO DAILY 01/07/19 Docusate Sodium [Stool Softener] 1 tab PO BID 08/13/20 Gabapentin [Neurontin*] 1 cap PO TID 08/13/20 Loratadine [Claritin*] 1 tab PO BEDTIME 08/13/20 Losartan Potassium [Cozaar*] 1 tab PO DAILY 08/13/20 Amox/Clavulanate [Augmentin 500-125 mg Tab] 500 mg PO BID #14 tab 08/14/20 - Past Medical/Surgical History Has patient received pneumonia vaccine in the past: Yes Diabetic: No -: Atrial fibrillation on chronic anticoagulation therapy -: CAD with prior CABG x3 vessel -: Arthritis -: Hypertension -: COPD -: Bilateral knee replacement -: CABG x3 vessel -: Left rotator cuff injury repair -: Right inguinal hernia repair Psychosocial/ Personal History: Patient is - Family History Father Medical History: Heart disease Mother Medical History: Heart disease - Social History Smoking Status: Former smoker Alcohol use: No CD- Drugs: No Caffeine use: Yes Review of Systems 10-point ROS is otherwise unremarkable Physical Examination - Vital Signs Temperature: 98.3 F Blood Pressure: 111/57 Pulse: 60 Respirations: 18 Pulse Ox (%): 97 - Physical Exam General: Alert, In no apparent distress, Oriented x3, Other (NG tube to suction) HEENT: Atraumatic, PERRLA, Mucous membr. moist/pink, EOMI, Sclerae nonicteric Neck: Supple, 2+ carotid pulse no bruit, No LAD, Without JVD or thyroid abnormality Respiratory: Clear to auscultation bilaterally, Normal air movement Cardiovascular: Regular rate/rhythm, Normal S1 S2 Gastrointestinal: Absent bowel sounds, Distended, Tenderness Musculoskeletal: No clubbing, No swelling, No tenderness Integumentary: No rashes Neurological: Normal gait, Normal speech, Normal strength at 5/5 x4 extr, Normal tone, Sensation intact, Cranial nerves 3-12 intact, Normal affect Lymphatics: No axilla or inguinal lymphadenopathy Assessment & Plan - Problems (Diagnosis) (1) Small bowel obstruction Current Visit: Yes Status: Acute (2) Acute exacerbation of CHF (congestive heart failure) Current Visit: Yes Status: Acute (3) Lymphedema Current Visit: No Status: Active (4) Acute CHF (congestive heart failure) Current Visit: No Status: Acute (5) Atrial fibrillation Current Visit: No Status: Acute Qualifiers: (6) Coronary artery disease Current Visit: No Status: Chronic Qualifiers: (7) History of coronary artery bypass graft Current Visit: No Status: Chronic - Plan Plan: 1. Continue with surgical consultation 2. NG tube to low intermittent wall suctioning 3. IV fluids 4. Antibiotics 5. Monitor electrolytes 6. Out of bed and ambulate 7. Strict blood pressure control and monitor cardiac status 8. GI and DVT prophylaxis Discharge Plan: Home Plan to discharge in: Greater than 2 days - Advance Directives Does patient have a Living Will: Yes Does patient have a Durable POA for Healthcare: Yes - Code Status/Comfort Care Code Status Assessed: Yes Code Status: Full Code Critical Care: No Time Spent Managing PTS Care (In Minutes): 45
--- NOTE | 2020-08-25 07:33 | P.PN ---
Subjective Date of Service: 08/23/20 Patient continues to improve with no new changes. Ambulating without difficulty. Clinical symptoms have improved. Will clamp NG tube and possibly remove it. Patient is had 2-3 bowel movements today. Review of Systems 10-point ROS is otherwise unremarkable Physical Examination - Vital Signs Temperature: 98.3 F Blood Pressure: 111/57 Pulse: 60 Respirations: 18 Pulse Ox (%): 97 - Physical Exam General: Alert, In no apparent distress, Oriented x3 Respiratory: Clear to auscultation bilaterally, Normal air movement Cardiovascular: Regular rate/rhythm, Normal S1 S2, No murmurs Gastrointestinal: Normal bowel sounds, Soft and benign, Non-distended, No tenderness Musculoskeletal: No tenderness Integumentary: No rashes Neurological: Normal strength at 5/5 x4 extr, Normal tone, Sensation intact, Cranial nerves 3-12 intact - Studies Medications List Reviewed: Yes Assessment & Plan - Problems (Diagnosis) (1) Small bowel obstruction Current Visit: Yes Status: Acute (2) Acute exacerbation of CHF (congestive heart failure) Current Visit: Yes Status: Acute (3) Lymphedema Current Visit: No Status: Active (4) Acute CHF (congestive heart failure) Current Visit: No Status: Acute (5) Atrial fibrillation Current Visit: No Status: Acute Qualifiers: (6) Coronary artery disease Current Visit: No Status: Chronic Qualifiers: (7) History of coronary artery bypass graft Current Visit: No Status: Chronic - Plan Plan: 1. Continue with surgical consultation; clamped NG tube. Ambulating. Patient is had a bowel movement. Anticipate NG tube being removed later today if okay with General surgery. Continue with IV fluids and IV antibiotics 2. Monitor electrolytes 3. Out of bed and ambulate 4. Strict blood pressure control and monitor cardiac status 5 GI and DVT prophylaxis Discharge Plan: Home Plan to discharge in: Greater than 2 days - Advance Directives Does patient have a Living Will: Yes Does patient have a Durable POA for Healthcare: Yes - Code Status/Comfort Care Code Status: Full Code Critical Care: No Time Spent Managing PTS Care (In Minutes): 35
--- NOTE | 2020-08-25 07:35 | P.PN ---
Date of Service: 08/24/20 Subjective Spoke with General surgery and wanted to hold off on discharge till tomorrow. Patient tolerating diet and ambulating without difficulty. Had a couple bowel movements today. NG tube is been removed. Anticipate discharge home in the morning. Review of Systems 10-point ROS is otherwise unremarkable Physical Examination - Vital Signs Reviewed - Physical Exam General: Alert, In no apparent distress, Oriented x3 Respiratory: Clear to auscultation bilaterally, Normal air movement Cardiovascular: Regular rate/rhythm, Normal S1 S2, No murmurs Gastrointestinal: Normal bowel sounds, Soft and benign, Non-distended, No tenderness Neurological: Reviewed Assessment & Plan - Problems (Diagnosis) (1) Small bowel obstruction Current Visit: Yes Status: Acute (2) Acute exacerbation of CHF (congestive heart failure) Current Visit: Yes Status: Acute (3) Lymphedema Current Visit: No Status: Active (4) Acute CHF (congestive heart failure) Current Visit: No Status: Acute (5) Atrial fibrillation Current Visit: No Status: Acute Qualifiers: (6) Coronary artery disease Current Visit: No Status: Chronic Qualifiers: (7) History of coronary artery bypass graft Current Visit: No Status: Chronic - Plan Plan: 1. Continue with surgical consultation; clamped NG tube. Ambulating. Patient is had a bowel movement. Continue with IV fluids and IV antibiotics 2. Monitor electrolytes 3. Out of bed and ambulate 4. Strict blood pressure control and monitor cardiac status 5 GI and DVT prophylaxis Anticipate discharge home tomorrow morning
--- NOTE | 2020-08-25 08:54 | P.DS ---
Admission Date: 08/22/20 Discharge Date: 08/25/20 Primary Care Provider: unknown; Surgery-Dr. Britt Disposition: ROUTINE DISCHARGE Discharge Condition: GOOD Reason for Admission: Small-bowel obstruction Consultations: Surgery-Dr. Britt Procedures: COVID: Negative CT scan: FINDINGS: The first image of the examination shows a 15 millimeter soft tissue density in the posterior lower right lung field. No prior imaging is available that adequately imaged this part of the chest. The possibility of a small lung mass cannot be excluded and follow-up CT chest imaging could be performed once the patient recovers from the subsequently detailed findings. Cardiomegaly is present with no pericardial thickening or effusion. Enlargement is primarily biatrial. The liver and spleen show no suspicious findings. No portal vein abnormality seen. Gallbladder is contracted limiting evaluation. No acute gallbladder finding suspected. No biliary tree dilatation. Atrophic and fatty infiltrated pancreas shows no acute finding. Symmetric renal function is seen with no hydronephrosis or suspicious renal mass. No pyelonephritis or acute parenchymal process. No bladder abnormalities. No adrenal abnormalities. Stomach is distended by fluid, fluid and air. No wall thickening, mass or pneumatosis. Numerous dilated small bowel loops are seen up to 5-6 cm in diameter. No small bowel mass or wall thickening seen. Transition is in the right mid abdomen. Obstructing mass is not seen. This is probably an adhesion or internal hernia. There are multiple small bowel loops that have fecalized bowel content. Moderate stool volume is present throughout the colon. No acute colon process seen. Trace amount of free fluid is present. No pneumatosis. Minimal amounts of free air seen in the peritoneal cavity. This is not unexpected given the history of small bowel obstruction surgery 1 week ago. No mass or bulky lymphadenopath y. No suspicious bony findings. Prominent disc and bony degenerative changes are present IMPRESSION: Prominent small bowel obstruction pattern is again identified. Transition point is in the right mid abdomen. An obstructing mass is not seen. Adhesion or internal hernia are most likely. Small amounts of free air present though this is not unexpected given the recent surgery. Patient has a 15 millimeter mass density in the posterior lower right lung field that is only partially imaged. Once the patient has recovered from the bowel obstruction, CT chest imaging would be recommended to further evaluate this finding. Medical Problem List: Recurrent small bowel obstruction Chronic atrial fibrillation on chronic anticoagulation therapy Hypertension Chronic pain GERD COPD Brief History of Present Illness: 89-year-old gentleman who came to the hospital in late July with small-bowel obstruction. Patient status post lysis of adhesion. Patient did well postoperatively but he started having abdominal pain a couple days ago. He started getting abdominal distention and some nausea and came into the hospital. X-ray reveals small-bowel obstruction. He was admitted for further evaluation and treatment. Hospital Course: Patient presented with small bowel obstruction. Patient had similar episode requiring surgical intervention with lysis of adhesions in July. Patient has done well. At discharge patient without significant abdominal pain. Patient tolerating diet. Patient reports multiple bowel movements with passage of gas. Patient was seen by surgery. No surgical intervention required. Patient will continue with mechanical soft diet. Follow-up with surgery as directed. Patient with chronic medical problems including chronic atrial fibrillation on chronic anticoagulation therapy, hypertension, chronic pain, GERD, and COPD. At discharge patient will continue with his current medications. Vital Signs/Physical Exam: Temp Pulse Resp BP Pulse Ox 98.3 F 60 18 111/57 L 97 08/25/20 07:33 08/25/20 07:33 08/25/20 07:33 08/25/20 07:33 08/25/20 07:33 General: Alert, In no apparent distress, Oriented x3, Cooperative HEENT: Atraumatic Neck: Supple Respiratory: Clear to auscultation bilaterally, Normal air movement Cardiovascular: Irregular heart rate/rhythm (A. fib rate controlled) Gastrointestinal: Normal bowel sounds, Soft and benign, Non-distended, No tenderness, No masses, No rebound, No guarding Musculoskeletal: No erythema, No tenderness, No warmth Neurological: Normal speech, Normal strength at 5/5 x4 extr, Normal tone, Normal affect Laboratory Data at Discharge: WBC 10.20 K/uL (4.3-10.9) 08/23/20 05:42 Hgb 12.7 g/dL (13.6-17.9) L 08/23/20 05:42 Hct 36.9 % (39.6-49.0) L 08/23/20 05:42 Plt Count 321 K/uL (152-406) 08/23/20 05:42 PT 13.5 SECONDS (9.5-12.5) H 08/22/20 09:40 INR 1.17 08/22/20 09:40 APTT 27.9 SECONDS (24.3-36.9) 08/23/20 05:42 Sodium 140 mmol/L (136-145) 08/25/20 05:17 Potassium 3.7 mmol/L (3.5-5.1) 08/25/20 05:17 BUN 7 mg/dL (7-18) 08/25/20 05:17 Creatinine 0.69 mg/dL (0.55-1.3) 08/25/20 05:17 Glucose 97 mg/dL (74-106) 08/25/20 05:17 Phosphorus 1.8 mg/dL (2.5-4.9) L 08/25/20 05:17 Magnesium 1.9 mg/dL (1.8-2.4) 08/23/20 05:42 Total Bilirubin 0.6 mg/dL (0.2-1.0) 08/23/20 05:42 AST 21 U/L (15-37) 08/23/20 05:42 ALT 27 U/L (12-78) 08/23/20 05:42 Alkaline Phosphatase 138 U/L (45-117) H 08/23/20 05:42 Lipase 22 U/L (73-393) L 08/23/20 05:42 Home Medications: Atorvastatin Calcium [Lipitor] 40 mg PO BEDTIME 01/06/19 Dabigatran Etexilate Mesylate [Pradaxa*] 150 mg PO BID 01/06/19 Esomeprazole Mag Trihydrate [Nexium] 40 mg PO DAILY 01/06/19 Furosemide [Lasix*] 40 mg PO DAILY 01/06/19 Iron,Carb/Vit C/Vit B12/Folic [Iron 100 Plus Tablet] 65 mg PO DAILY 01/06/19 Oxybutynin Chloride [Ditropan*] 5 mg PO BID 01/06/19 Albuterol Sulfate [Proair Hfa] 2 puff IH SEECOM PRN 01/07/19 Fluticasone Propionate [Flovent Diskus] 1 - 2 spray IH DAILY PRN 01/07/19 Fluticasone/Salmeterol [Advair Hfa 230-21 Mcg Inhaler] 2 puff IH BID PRN 01/07/19 Hydrocodone/Acetaminophen [Hydrocodone-Acetamin 10-325 mg] 1 tab PO Q4H PRN 01/07/19 Multivit-Min/FA/Lycopen/Lutein [Centrum Silver Tablet] 1 tab PO DAILY 01/07/19 Docusate Sodium [Stool Softener] 1 tab PO BID 08/13/20 Gabapentin [Neurontin*] 1 cap PO TID 08/13/20 Loratadine [Claritin*] 1 tab PO BEDTIME 08/13/20 Losartan Potassium [Cozaar*] 1 tab PO DAILY 08/13/20 Amox/Clavulanate [Augmentin 500-125 mg Tab*] 500 mg PO BID #14 tab 08/14/20 Physician Discharge Instructions: Patient presented with small bowel obstruction. Patient had similar episode requiring surgical intervention with lysis of adhesions in July. Patient has done well. At discharge patient without significant abdominal pain. Patient tolerating diet. Patient reports multiple bowel movements with passage of gas. Patient was seen by surgery. No surgical intervention required. Patient will continue with mechanical soft diet. Follow-up with surgery as directed. Patient with chronic medical problems including chronic atrial fibrillation on chronic anticoagulation therapy, hypertension, chronic pain, GERD, and COPD. At discharge patient will continue with his current medications. Diet: Mechanical Activity: Ad naif Followup: LATRELL SAMS [Primary Care Provider] - Time spent managing pt's care (in minutes): 55
[2020-08-25] MEDS: POTASS/SODIUM PHOSPHATE 1 PKT POWD.PACK PO SCH ×3 (09:00→10:00)
[2020-08-25] MEDS ORDERED: POTASSIUM CL SA 10 MEQ TAB PO ONE (09:00)
[2020-08-25] MEDS: ENOXAPARIN 40 MG/0.4 ML SQ SCH (09:42)
== END 2020-08-25 10:21 | disposition home or self-care (01) | DRG 388 ==
LOC: ER 06:14 → ERHOLD 09:42 → 2ND 15:54
PROVIDERS: ADMIT Hospitalist; ATTEND Family Medicine
DX: K56.609 Unspecified intestinal obstruction, unspecified as to partial versus complete obstruction (principal); I50.31 Acute diastolic (congestive) heart failure; I48.20 Chronic atrial fibrillation, unspecified; I11.0 Hypertensive heart disease with heart failure; J44.9 Chronic obstructive pulmonary disease, unspecified; I89.0 Lymphedema, not elsewhere classified; I25.10 Atherosclerotic heart disease of native coronary artery without angina pectoris; G89.29 Other chronic pain; K21.9 Gastro-esophageal reflux disease without esophagitis; Z88.1 Allergy status to other antibiotic agents; Z79.899 Other long term (current) drug therapy; Z95.1 Presence of aortocoronary bypass graft; Z96.653 Presence of artificial knee joint, bilateral; Z79.01 Long term (current) use of anticoagulants; Z87.891 Personal history of nicotine dependence; Z20.822 Contact with and (suspected) exposure to COVID-19
CPT/HCPCS: 36415; 71045; 74022; 74177; 80048; 80053; 80076; 83690; 83735; 83880; 84100; 84132; 84484; 85025; 85610; 85730; 93005; 94010; 99283; J1170; J1650; J2405; J3480; J7030; Q9967; U0003